=== PATIENT | male | born 1945 | race Caucasian/White ===

== ENCOUNTER 2016-10-23 11:08 | Inpatient (IN) | payer MEDICARE, BC ==
[~2016-10-23] VITALS: Ht 180.3 cm; Wt 118.0 kg
[2016-10-23] VITALS (11 sets, daily range): BP systolic 113–130; BP diastolic 58–82; PULSE 60–80; RESP 16–24; TEMP 97.4–98.6; O2SAT 95–96
[~2016-10-23 11:08] MED LIST: CLOP75 PO; COLE625 PO; COQ1200C3 PO; DILT180C56 PO; ENAL5TAB98 PO; ESZO3 PO; FURO20TA PO; HYALCAP PO; META800T81 PO; NITR0.4S SL; RAPA8CAP PO; TAB-TAB PO; ULTR50TA PO; [UNRECOGNIZED DRUG - CODE] PO
[2016-10-23] MEDS ORDERED: IOHEXOL 350 MG/ML 10 ML VIAL (for RAD DIAG) IVCONTRAST ONE (11:09)
--- NOTE | 2016-10-23 11:23 | PD ---
Physical Exam Date Seen by Provider: Oct 23, 2016 Time Seen by Provider: 11:20 Narrative 71 Y/O male with 4 day Hx. chest pressure and Pain across upper back. Pt. states similar symptoms to when he needed 4 stents in 2004. Patient takes ASA Daily. EKG and Chest Pain Labs ordered per Protocol. Patient awaiting Bed Placement. Data Data Last Documented VS Vital Signs Date Time Temp Pulse Resp B/P (MAP) Pulse Ox O2 Delivery O2 Flow Rate FiO2 10/23/16 11:10 98.6 80 24 130/82 (98) 96 Room Air [facility] Medical Record Reviewed: Yes Supervised Visit with DUSTY: Yes Condition: Stable Diego Patterson Oct 23, 2016 11:23
--- NOTE | 2016-10-23 11:48 | PD ---
HPI Chief Complaint: Chest Pain Time Seen by Provider: 11:48 Travel History International Travel<30 days: No Contact w/Intl Traveler<30days: No Traveled to known affect area: No History of Present Illness HPI 71-year-old male presents to the emergency department for evaluation of a chest pressure and back pain. Patient has history of CAD with previous stent placement, hypertension, followed by Dr. Fairchild. Patient states over the last 3-4 weeks he has had this left-sided chest pressure. It is almost constant. He has developed a pain between his shoulder blades on his upper back. He has no shortness of breath. He was awoken abruptly at 3 AM this morning with the symptoms once again. He was diaphoretic this time. He states the sensation was similar to when he had to have his stents placed before. He contacted his principal architectural firm to advised that he come to the emergency department. Patient has sublingual nitroglycerin at home, however he has not taken it during any episode of the last 3-4 weeks. Denies any recent illnesses, fever, chills. No nausea or vomiting. Patient has no other symptoms to report. PFSH Past Medical History Heart Rhythm Problems: Yes (RBBB) Cardiac Catheterization: Yes Cardiovascular Problems: Yes (4 STENTS TO HEART) High Cholesterol: Yes Congestive Heart Failure: No Diabetes: No Diminished Hearing: No Hypertension: Yes Myocardial Infarction: Yes (2004) Past Surgical History Coronary Artery Bypass Graft: No Coronary Stent: Yes (X 4 2004) Social History Alcohol Use: Yes (2 DRINKS DAILY) Tobacco Use: No (QUIT 1989) Substance Use: No Allergies-Medications (Allergen,Severity, Reaction): Coded Allergies: aspirin (Verified Allergy, Severe, Flushing, 10/23/16) acetaminophen (Unverified Allergy, Mild, 10/23/16) caffeine (Unverified Allergy, Mild, 10/23/16) povidone-iodine (Unverified Allergy, Mild, 10/23/16) Reported Meds & Prescriptions Reported Meds & Active Scripts Active Reported B12 (Cyanocobalamin) 1,000 Mcg Tab 1 Tab PO DAILY Aspirin 81 Mg Chew 81 Mg CHEW DAILY Coq-10 (Coenzyme Q10 (Ubidecarenone)) 400 Mg Cap 200 Mg PO DAILY Multiple Vitamin 1 Tab 1 Tab PO DAILY Hydrocodone-Acetaminophen 7.5-325 mg Tab 1 Tab PO Q4H PRN Gabapentin 300 Mg Cap 300 Mg PO BID Furosemide 20 Mg Tab 20-40 Mg PO DIRECTED Metaxalone 800 Mg Tab 800 Mg PO DAILY PRN Temazepam 15 Mg Cap 15 Mg PO HS PRN Welchol (Colesevelam HCl) 625 Mg Tab 3,750 Mg PO DAILY Diltiazem ER 24 HR 180 Mg Mihir 180 Mg PO DAILY Enalapril (Enalapril Maleate) 5 Mg Tab 5 Mg PO DAILY Finasteride 5 Mg Tab 5 Mg PO DIRECTED Do not crush. Review of Systems Except as stated in HPI: all other systems reviewed are Neg Physical Exam Narrative GENERAL: Well-nourished male patient, ambulatory and in no acute distress. Patient is resting comfortably on the stretcher. SKIN: Focused skin assessment warm/dry. HEAD: Atraumatic. Normocephalic. EYES: Pupils equal and round. No scleral icterus. No injection or drainage. ENT: No nasal bleeding or discharge. Mucous membranes pink and moist. NECK: Trachea midline. No JVD. CARDIOVASCULAR: Regular rate and rhythm. No murmur appreciated. RESPIRATORY: No accessory muscle use. Clear to auscultation. Breath sounds equal bilaterally. GASTROINTESTINAL: Abdomen soft, non-tender, nondistended. Hepatic and splenic margins not palpable. MUSCULOSKELETAL: No obvious deformities. No clubbing. No cyanosis. No edema. NEUROLOGICAL: Awake and alert. No obvious cranial nerve deficits. Motor grossly within normal limits. Normal speech. PSYCHIATRIC: Appropriate mood and affect; insight and judgment normal. Data Data Last Documented VS Vital Signs Date Time Temp Pulse Resp B/P (MAP) Pulse Ox O2 Delivery O2 Flow Rate FiO2 10/23/16 15:07 62 16 113/58 (76) 96 Room Air 10/23/16 11:10 98.6 Orders Orders Electrocardiogram (10/23/16 11:18) Complete Blood Count With Diff (10/23/16 11:18) Basic Metabolic Panel (Bmp) (10/23/16 11:18) Ckmb (Isoenzyme) Profile (10/23/16 11:18) Troponin I (10/23/16 11:18) Chest, Single Ap (10/23/16 11:18) Iv Access Insert/Monitor (10/23/16 11:18) Ecg Monitoring (10/23/16 11:18) Oxygen Administration (10/23/16 11:18) Oximetry (10/23/16 11:18) D-Dimer (10/23/16 12:08) Lipase (10/23/16 11:30) Aspirin Chew (Aspirin Chew) (10/23/16 12:30) Ct Pulmonary Angiogram (10/23/16 ) Iohexol 350 Inj (Omnipaque 350 Inj) (10/23/16 11:09) Labs Laboratory Tests Test 10/23/16 11:30 10/23/16 12:20 White Blood Count 6.4 TH/MM3 Red Blood Count 5.37 MIL/MM3 Hemoglobin 15.5 GM/DL Hematocrit 47.2 % Mean Corpuscular Volume 88.0 FL Mean Corpuscular Hemoglobin 28.8 PG Mean Corpuscular Hemoglobin Concent 32.7 % Red Cell Distribution Width 13.6 % Platelet Count 234 TH/MM3 Mean Platelet Volume 7.4 FL Neutrophils (%) (Auto) 60.8 % Lymphocytes (%) (Auto) 28.8 % Monocytes (%) (Auto) 9.1 % Eosinophils (%) (Auto) 1.0 % Basophils (%) (Auto) 0.3 % Neutrophils # (Auto) 3.9 TH/MM3 Lymphocytes # (Auto) 1.8 TH/MM3 Monocytes # (Auto) 0.6 TH/MM3 Eosinophils # (Auto) 0.1 TH/MM3 Basophils # (Auto) 0.0 TH/MM3 CBC Comment DIFF FINAL Differential Comment Blood Urea Nitrogen 19 MG/DL Creatinine 0.95 MG/DL Random Glucose 83 MG/DL Calcium Level 8.7 MG/DL Sodium Level 142 MEQ/L Potassium Level 4.1 MEQ/L Chloride Level 107 MEQ/L Carbon Dioxide Level 28.0 MEQ/L Anion Gap 7 MEQ/L Estimat Glomerular Filtration Rate 78 ML/MIN Total Creatine Kinase 83 U/L Troponin I LESS THAN 0.02 NG/ML Lipase 195 U/L D-Dimer Quantitative (PE/DVT) 0.53 MG/L FEU [facility] Medical Decision Making Medical Screen Exam Complete: Yes Emergency Medical Condition: Yes Medical Record Reviewed: Yes Differential Diagnosis ACS versus angina versus esophageal spasm versus indigestion versus pleuritic pain versus chest wall pain versus musculoskeletal pain versus less likely dissection. Narrative Course 71-year-old male presents to to the emergency department for evaluation. Patient appears without distress. His vital signs are stable. He is currently having chest pressure. I discussed the patient with my attending physician. D- dimer will be added to lab work as well as lipase. Laboratory Tests Test 10/23/16 11:30 10/23/16 12:20 White Blood Count 6.4 TH/MM3 Red Blood Count 5.37 MIL/MM3 Hemoglobin 15.5 GM/DL Hematocrit 47.2 % Mean Corpuscular Volume 88.0 FL Mean Corpuscular Hemoglobin 28.8 PG Mean Corpuscular Hemoglobin Concent 32.7 % Red Cell Distribution Width 13.6 % Platelet Count 234 TH/MM3 Mean Platelet Volume 7.4 FL Neutrophils (%) (Auto) 60.8 % Lymphocytes (%) (Auto) 28.8 % Monocytes (%) (Auto) 9.1 % Eosinophils (%) (Auto) 1.0 % Basophils (%) (Auto) 0.3 % Neutrophils # (Auto) 3.9 TH/MM3 Lymphocytes # (Auto) 1.8 TH/MM3 Monocytes # (Auto) 0.6 TH/MM3 Eosinophils # (Auto) 0.1 TH/MM3 Basophils # (Auto) 0.0 TH/MM3 CBC Comment DIFF FINAL Differential Comment Blood Urea Nitrogen 19 MG/DL Creatinine 0.95 MG/DL Random Glucose 83 MG/DL Calcium Level 8.7 MG/DL Sodium Level 142 MEQ/L Potassium Level 4.1 MEQ/L Chloride Level 107 MEQ/L Carbon Dioxide Level 28.0 MEQ/L Anion Gap 7 MEQ/L Estimat Glomerular Filtration Rate 78 ML/MIN Total Creatine Kinase 83 U/L Troponin I LESS THAN 0.02 NG/ML Lipase 195 U/L D-Dimer Quantitative (PE/DVT) 0.53 MG/L FEU CT pulmonary angiogram shows no pleural effusion. No PE. It does show coronary calcifications. I discussed the patient with Dr. Devorah Calzada's PA. She requests admission to medicine for observation to [facility]. [facility]. Diagnosis Primary Impression: Chest discomfort Admitting Information Admitting Physician Requests: Observation Condition: Stable BrittanyAgataSujeyanderson VALLES Oct 23, 2016 11:48
[2016-10-23 12:14] LABS: AUTOMATED NEUTROPHIL # 3.9 TH/MM3 (1.8-7.7); BASOPHIL % 0.3 % (0.0-2.0); EOSINOPHIL # 0.1 TH/MM3 (0-0.4); HEMATOCRIT 47.2 % (39.0-51.0); HEMO FLAGS DIFF FINAL; LYMPH % 28.8 % (9.0-44.0); LYMPHOCYTE # 1.8 TH/MM3 (1.0-4.8); MEAN CORPUSCULAR HEMOGLOBIN 28.8 PG (27.0-34.0); MEAN CORPUSCULAR HGB CONC 32.7 % (32.0-36.0); MONO % 9.1 % (0.0-8.0); NEUT % 60.8 % (16.0-70.0); PLATELET COUNT 234 TH/MM3 (150-450); RED BLOOD COUNT 5.37 MIL/MM3 (4.50-5.90); RED CELL DISTRIBUTION WIDTH 13.6 % (11.6-17.2); WHITE BLOOD COUNT 6.4 TH/MM3 (4.0-11.0)
[2016-10-23] MEDS ORDERED: ASPIRIN 81 MG CHEW TAB CHEW ONE (12:30)
[2016-10-23] MEDS ORDERED: GABA300C5 PO ×2 (12:33→21:54)
[2016-10-23] MEDS ORDERED: META1TAB19 PO (12:33)
[2016-10-23] MEDS ORDERED: HYDR-3580 PO ×2 (12:33→21:54)
[2016-10-23] MEDS ORDERED: TEMA15CA PO (12:33)
[2016-10-23] MEDS ORDERED: DILT0.05 PO (12:33)
[2016-10-23] MEDS ORDERED: CYAN1TAB24 PO (12:33)
[2016-10-23] MEDS ORDERED: MULTTAB67 PO (12:33)
[2016-10-23] MEDS ORDERED: FINA5TAB2 PO ×2 (12:33→21:44)
[2016-10-23] MEDS ORDERED: ASPI81CH CHEW (12:33)
[2016-10-23] MEDS ORDERED: COEN400C PO (12:33)
[2016-10-23] MEDS ORDERED: ENAL5TAB PO (12:33)
[2016-10-23] MEDS ORDERED: FURO20TA PO (12:33)
[2016-10-23] MEDS ORDERED: WELC625T2 PO (12:33)
[2016-10-23 12:40] LABS: ANION GAP 7 MEQ/L (5-15); BLOOD UREA NITROGEN 19 MG/DL (7-18); CHLORIDE 107 MEQ/L (98-107); GLOMERULAR FILTRATION RATE 78 ML/MIN (>89); POTASSIUM 4.1 MEQ/L (3.5-5.1); SODIUM (NA) 142 MEQ/L (136-145)
[2016-10-23 12:58] LABS: CREATINE KINASE 83 U/L (39-308)
--- NOTE | 2016-10-23 13:42 | RADRPT ---
EXAM DATE/TIME: 10/23/2016 12:45 [facility] COMPARISON: CHEST SINGLE AP, April 29, 2014, 20:52. INDICATIONS : Chest pain. MEDICAL HISTORY : Myocardial infarction. Hypertension SURGICAL HISTORY : Coronary artery stent. ENCOUNTER: Initial ACUITY: 3 weeks PAIN SCORE: 7/10 LOCATION: Bilateral chest FINDINGS: A single view of the chest demonstrates the lungs to be symmetrically aerated without evidence of mas s, infiltrate or effusion. The cardiomediastinal contours are unremarkable. Osseous structures are intact. CONCLUSION: No acute cardiopulmonary process. Reinier Bunch MD on October 23, 2016 at 13:40 Board Certified Radiologist. This report was verified electronically.
--- NOTE | 2016-10-23 15:09 | RADRPT ---
EXAM DATE/TIME: 10/23/2016 14:24 [facility] COMPARISON: No previous studies available for comparison. INDICATIONS : Chest tightness for 1 month, worsening today IV CONTRAST: 75 cc Omnipaque 350 (iohexol) IV RADIATION DOSE: 23.03 CTDIvol (mGy) MEDICAL HISTORY : Hypertension. Cardiovascular disease SURGICAL HISTORY : Coronary artery stent. ENCOUNTER: Initial ACUITY: 1 day PAIN SCALE: 3/10 LOCATION: chest TECHNIQUE: Volumetric scanning of the chest was performed using a pulmonary embolism protocol MIP images were re constructed. Using automated exposure control and adjustment of the mA and/or kV according to patien t size, radiation dose was kept as low as reasonably achievable to obtain optimal diagnostic quality images. DICOM format image data is available electronically for review and comparison. Follow-up recommendations for detected pulmonary nodules are based at a minimum on nodule size and pa tient risk factors according to Fleischner Society Guidelines. FINDINGS: PULMONARY ARTERIES: No filling defects are seen in the pulmonary arteries through the segmental level. Tiny defect within right lower lobe branches on image #68 appears to be artifact. LUNGS: There is no consolidation or pneumothorax . No concerning pulmonary nodule is visualized. PLEURAE: There is no pleural thickening or pleural effusion. MEDIASTINUM: There is good visualization of the great vessels of the middle mediastinum. No evidence of mediastin al or hilar adenopathy/mass. Coronary artery calcifications. MUSCULOSKELETAL: Within normal limits for patient age. MISCELLANEOUS: The visualized upper abdominal organs demonstrate no acute abnormality. CONCLUSION: 1. No evidence for pulmonary embolism. 2. No infiltrate or pleural effusion. 3. Coronary artery calcifications. Jus Navarro MD on October 23, 2016 at 15:04 Board Certified Radiologist. This report was verified electronically.
--- NOTE | 2016-10-23 17:23 | HHI.HP ---
HPI Service [facility] Hospitalists Primary Care Physician Lea Whitley DO Admission Diagnosis CHEST PRESSURE Diagnoses: Chief Complaint: Chest pain Mid upper back pain Diaphoresis Travel History International Travel<30 Days: No Contact w/Intl Traveler <30 Da: No Traveled to Known Affected Are: No History of Present Illness Written by MAURO Granados acting as scribe for Dr. Rasmussen on 10/23/16 at 16:54. This is a 71-year-old male with past medical history significant for coronary artery disease status post previous MT with implantation of four cardiac stents in 2004, hypertension, dyslipidemia and degenerative disc disease lumbar spine status post previous lumbar fusion who presents to [facility] ED with complaints of ongoing chest pain. Patient states that symptoms began one month ago and at that time he was experiencing intermittent left-sided chest pressure. For the past week, the chest pain has been constant. He denies any aggravating or alleviating factors. He endorses cheat pain at rest. About 5 days ago, he began to experience pain in between the shoulder blades in the mid upper back which is the same type of pain he experienced when he had his previous heart attack in 2004. Patient states this morning at 3am he was awoken with chest pain as well as mid upper back pain with associated diaphoresis. He denies any associated nausea or vomiting. He denies any dizziness or lightheadedness. Denies any palpitations. Patient denies any recent illness or travel. He does endorse increased fatigue more recently and daytime somnolence. He also reports bilateral lower extremity edema. Patient admits to sleeping with 2 pillows at night. He denies any abdominal pain, diarrhea, constipation, hematochezia, dysuria or hematuria. Patient is followed by caustics loader Dr. Fairchild. He was on Plavix up until last year. He denies any change in his recent medication. He also states he is very compliant with his meds. Called his caustics loader and was instructed to come here for further evaluation In the ED, patient's initial troponin is less than 0.02. Chest x-ray shows no acute cardiopulmonary process. CTA was also obtained and shows no evidence for pulmonary embolus, no infiltrate or pleural effusion and coronary artery calcifications. Cardiology has been consulted while patient was in the ED and requested admission [facility] for observation. EKG shows no acute changes Review of Systems Except as stated in HPI: all other systems reviewed are Neg Past Family Social History Past Medical History Coronary artery disease status post previous MT with cardiac stent implantations 2005 Hypertension BPH Hyperlipidemia intolerant to statins secondary to muscle pain and weakness TORI Neuropathy Chronic low back pain Past Surgical History Cardiac stent implants x 4 Lumbar fusion Left knee arthroscopy Shoulder arthroscopy Bilateral carpal tunnel release Heel spur excision Reported Medications B12 (Cyanocobalamin) 1,000 Mcg Tab 1 Tab PO DAILY Aspirin 81 Mg Chew 81 Mg CHEW DAILY Coq-10 (Coenzyme Q10 (Ubidecarenone)) 400 Mg Cap 200 Mg PO DAILY Multiple Vitamin 1 Tab 1 Tab PO DAILY Hydrocodone-Acetaminophen 7.5-325 mg Tab 1 Tab PO Q4H PRN Gabapentin 300 Mg Cap 300 Mg PO BID Furosemide 20 Mg Tab 20-40 Mg PO DIRECTED Metaxalone 800 Mg Tab 800 Mg PO DAILY PRN Temazepam 15 Mg Cap 15 Mg PO HS PRN Welchol (Colesevelam HCl) 625 Mg Tab 3,750 Mg PO DAILY Diltiazem ER 24 HR 180 Mg Mihir 180 Mg PO DAILY Enalapril (Enalapril Maleate) 5 Mg Tab 5 Mg PO DAILY Finasteride 5 Mg Tab 5 Mg PO DIRECTED Do not crush. Allergies: Coded Allergies: aspirin (Verified Allergy, Severe, Flushing, 10/23/16) acetaminophen (Unverified Allergy, Mild, 10/23/16) caffeine (Unverified Allergy, Mild, 10/23/16) povidone-iodine (Unverified Allergy, Mild, 10/23/16) Family History Mother, coronary artery disease, previous MT Social History Patient has a history of previous tobacco use but quit in 1988. Prior to quitting, patient states he smoked 3 packs per day for 30yrs. He endorses EtOH consumption several drinks per day. He denies any illicit drug use. Patient is lives with his . 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 Physical Exam Vital Signs Vital Signs Date Time Temp Pulse Resp B/P (MAP) Pulse Ox O2 Delivery O2 Flow Rate FiO2 10/23/16 15:07 62 16 113/58 (76) 96 Room Air 10/23/16 12:34 64 20 116/71 (86) 96 Room Air 10/23/16 12:25 20 96 Room Air 10/23/16 11:10 98.6 80 24 130/82 (98) 96 Room Air Physical Exam GENERAL: This is a well-nourished, well-developed obese patient, in no apparent distress. Awake and alert. at the bedside. SKIN: No rashes, ecchymoses or lesions. Cool and dry. HEAD: Atraumatic. Normocephalic. No temporal or scalp tenderness. EYES: Pupils equal round and reactive. Extraocular motions intact. No scleral icterus. No injection or drainage. ENT: Nose without bleeding or purulent drainage. Throat without erythema, tonsillar hypertrophy or exudate. Uvula midline. Airway patent. NECK: Trachea midline. No lymphadenopathy. Supple, nontender, no meningeal signs. CARDIOVASCULAR: Regular rate and rhythm without murmurs, gallops, or rubs. RESPIRATORY: Clear to auscultation. Breath sounds equal bilaterally. No wheezes , rales, or rhonchi. GASTROINTESTINAL: Abdomen soft, non-tender, nondistended. No hepato-splenomegaly , or palpable masses. No guarding. MUSCULOSKELETAL: Extremities without clubbing, cyanosis, or edema. No joint tenderness, effusion, or edema noted. No calf tenderness. NEUROLOGICAL: Awake and alert. Able to move all extremities. No focal neurologic findings appreciated. Normal speech. Laboratory Laboratory Tests Test 10/23/16 11:30 10/23/16 12:20 White Blood Count 6.4 Red Blood Count 5.37 Hemoglobin 15.5 Hematocrit 47.2 Mean Corpuscular Volume 88.0 Mean Corpuscular Hemoglobin 28.8 Mean Corpuscular Hemoglobin Concent 32.7 Red Cell Distribution Width 13.6 Platelet Count 234 Mean Platelet Volume 7.4 Neutrophils (%) (Auto) 60.8 Lymphocytes (%) (Auto) 28.8 Monocytes (%) (Auto) 9.1 Eosinophils (%) (Auto) 1.0 Basophils (%) (Auto) 0.3 Neutrophils # (Auto) 3.9 Lymphocytes # (Auto) 1.8 Monocytes # (Auto) 0.6 Eosinophils # (Auto) 0.1 Basophils # (Auto) 0.0 CBC Comment DIFF FINAL Differential Comment Blood Urea Nitrogen 19 Creatinine 0.95 Random Glucose 83 Calcium Level 8.7 Sodium Level 142 Potassium Level 4.1 Chloride Level 107 Carbon Dioxide Level 28.0 Anion Gap 7 Estimat Glomerular Filtration Rate 78 Total Creatine Kinase 83 Troponin I LESS THAN 0.02 Lipase 195 D-Dimer Quantitative (PE/DVT) 0.53 Result Diagram: 10/23/16 1130 10/23/16 1130 Caprini VTE Risk Assessment Caprini VTE Risk Assessment: Mod/High Risk (score >= 2) Caprini Risk Assessment Model Point Value = 1 Point Value = 2 Point Value = 3 Point Value = 5 Age 41-60 Minor surgery BMI > 25 kg/m2 Swollen legs Varicose veins or History of unexplained or recurrent spontaneous Oral contraceptives or hormone replacement Sepsis (< 1 month) Serious lung disease, including pneumonia (< 1 month) Abnormal pulmonary function Acute myocardial infarction Congestive heart failure (< 1 month) History of inflammatory bowel disease Medical patient at bed rest Age 61-74 Arthroscopic surgery Major open surgery (> 45 min) Laparoscopic surgery (> 45 min) Malignancy Confined to bed (> 72 hours) Immobilizing plaster cast Central venous access Age >= 75 History of VTE Family history of VTE Factor V Leiden Prothrombin [id number] Lupus anticoagulant Anticardiolipin antibodies Elevated serum homocysteine Heparin-induced thrombocytopenia Other congenital or acquired thrombophilia Stroke (< 1 month) Elective arthroplasty Hip, pelvis, or leg fracture Acute spinal cord injury (< 1 month) Prophylaxis Regimen Total Risk Factor Score Risk Level Prophylaxis Regimen 0-1 Low Early ambulation 2 Moderate Order ONE of the following: *Sequential Compression Device (SCD) *Heparin 5000 units SQ BID 3-4 Higher Order ONE of the following medications: *Heparin 5000 units SQ TID *Enoxaparin/Lovenox 40 mg SQ daily (WT < 150 kg, CrCl > 30 mL/min) *Enoxaparin/Lovenox 30 mg SQ daily (WT < 150 kg, CrCl > 10-29 mL/min) *Enoxaparin/Lovenox 30 mg SQ BID (WT < 150 kg, CrCl > 30 mL/min) AND/OR *Sequential Compression Device (SCD) 5 or more Highest Order ONE of the following medications: *Heparin 5000 units SQ TID (Preferred with Epidurals) *Enoxaparin/Lovenox 40 mg SQ daily (WT < 150 kg, CrCl > 30 mL/min) *Enoxaparin/Lovenox 30 mg SQ daily (WT < 150 kg, CrCl > 10-29 mL/min) *Enoxaparin/Lovenox 30 mg SQ BID (WT < 150 kg, CrCl > 30 mL/min) AND *Sequential Compression Device (SCD) Assessment and Plan Assessment and Plan 71-year-old male with past medical history significant for coronary artery disease status post previous MT with implantation of four cardiac stents in 2004 , hypertension, dyslipidemia and degenerative disc disease lumbar spine status post previous lumbar fusion who presents to [facility] ED with complaints of ongoing chest pain. ACS,unstable angina in patient with h/o CAD s/p previous MT and cardiac stent implants Patients caustics loader Dr. Fairchild consulted while patient in the ED CTA personally reviewed and shows no evidence for pulmonary embolus, infiltrate or pleural effusion. Chest x-ray obtained in the ED personally interpreted shows no acute cardiopulmonary process. EKG personally reviewed showing sinus rhythm with incomplete block. Last cardiac catheterization in our system dated 05/25/08 shows normal LV function widely patent stents 4 and 30-40% disease of the LAD Continuous cardiac monitoring Initial troponin negative. Follow up on serial cardiac enzymes. Supplemental oxygen Aspirin 81 mg daily give x1v Lovenox. will defer to cardiology whether to proceed with cath or myocardial perfusion study Hypertension, controlled Continue patient on his home dose of antihypertensive medications including enalapril 5 mg daily and diltiazem 180 mg daily Dyslipidemia Intolerant to statins due to muscle pain/weakness Continue patient's home dose of Welchol BPH Continue patient's home dose of finasteride Chronic low back pain status post previous fusion Neuropathy Continue patient's home dose of gabapentin Continue patient's home muscle relaxant as needed TORI Will discuss with the patient bring in his own home CPAP machine if he has one DVT prophylaxis- -Lovenox x 1 for # 1 The exam, history, and the medical decision-making described in the above note were completed with the assistance of the mid-level provider. I reviewed and agree with the findings presented. I attest that I had a [id number] encounter with the patient on the same day, and personally performed and documented my assessment and findings in the medical record. Ofe Sanchez Oct 23, 2016 17:23 Michael Rasmussen MD Oct 23, 2016 17:42
[2016-10-23 18:03] LABS: CREATINE KINASE 70 U/L (39-308)
[2016-10-23] MEDS ORDERED: ENOXAPARIN SODIUM 120 MG/0.8 ML SYRINGE SQ ONE (18:30)
[2016-10-23] MEDS ORDERED: DILT180C56 PO (21:54)
[2016-10-23] MEDS ORDERED: ENAL5TAB98 PO (21:54)
[2016-10-23] MEDS ORDERED: REST15CA PO (21:54)
[2016-10-23] MEDS: METAXALONE 800 MG TAB PO SCH (23:00)
[2016-10-23] MEDS ORDERED: GABAPENTIN 300 MG CAP PO SCH (23:00)
[2016-10-23] MEDS: TEMAZEPAM 15 MG CAP PO PRN (23:16)
[2016-10-24] VITALS (23 sets, daily range): BP systolic 96–139; BP diastolic 58–75; PULSE 54–78; RESP 16–20; TEMP 97.7–98.6; O2SAT 94–97
--- NOTE | 2016-10-24 08:15 | HHI.PR ---
Subjective Remarks overnight on and off chest discomfort- fleeting with no associated nausea or vomiting or diaphoresis Objective Vitals Vital Signs Date Time Temp Pulse Resp B/P (MAP) Pulse Ox O2 Delivery O2 Flow Rate FiO2 10/24/16 06:15 57 10/24/16 05:04 55 10/24/16 04:40 54 10/24/16 03:21 56 10/24/16 03:15 97.8 60 16 139/70 (93) 97 10/24/16 02:00 55 10/24/16 01:00 61 10/24/16 00:00 59 10/23/16 23:15 97.4 60 18 122/69 (86) 96 10/23/16 23:00 63 10/23/16 22:00 64 10/23/16 21:00 62 10/23/16 20:00 62 10/23/16 19:00 67 10/23/16 19:00 98.6 66 16 115/63 (80) 95 10/23/16 17:41 10/23/16 17:34 65 20 114/64 (81) 96 Room Air 10/23/16 15:07 62 16 113/58 (76) 96 Room Air 10/23/16 12:34 64 20 116/71 (86) 96 Room Air 10/23/16 12:25 20 96 Room Air 10/23/16 11:10 98.6 80 24 130/82 (98) 96 Room Air I/O 10/23/16 10/23/16 10/23/16 10/24/16 10/24/16 10/24/16 06:59 14:59 22:59 06:59 14:59 22:59 Intake Total 480 ml Balance 480 ml Intake Oral 480 ml # Voids 3 Result Diagram: 10/23/16 1130 10/23/16 1130 Objective Remarks awake and alert, NAD anicteric lungs clear regular rhythm abdomen soft, nontender extremities no edema neuro exam- unremarkable A/P Assessment and Plan 71-year-old male with past medical history significant for coronary artery disease status post previous OH with implantation of four cardiac stents in 2004 , hypertension, dyslipidemia and degenerative disc disease lumbar spine status post previous lumbar fusion who presents to [facility] ED with complaints of ongoing chest pain. 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 troponins negative CTA - no evidence for pulmonary embolus, infiltrate or pleural effusion. EKG -with incomplete block. Last cardiac catheterization in our system dated 05/25/08 shows normal LV function widely patent stents 4 and 30-40% disease of the LAD Supplemental oxygen Aspirin 81 mg daily. CCB, [place] give x1v Lovenox. will defer to cardiology whether to proceed with cath or myocardial perfusion study Hypertension, controlled Continue patient on his home dose of antihypertensive medications including enalapril 5 mg daily and diltiazem 180 mg daily Dyslipidemia Intolerant to statins due to muscle pain/weakness Continue patient's home dose of Welchol BPH Continue patient's home dose of finasteride Chronic low back pain status post previous fusion Neuropathy Continue patient's home dose of gabapentin Continue patient's home muscle relaxant as needed TORI Will discuss with the patient bring in his own home CPAP machine if he has one DVT prophylaxis- -Lovenox x 1 for # 1 HOld for possible cath. Michael Rasmussen MD Oct 24, 2016 08:15
[2016-10-24] MEDS: METAXALONE 800 MG TAB PO SCH ×2 (09:00→21:00)
[2016-10-24] MEDS ORDERED: COLESEVELAM HCL 625 MG TAB PO SCH ×2 (09:00→10:00)
[2016-10-24] MEDS: ENALAPRIL MALEATE 5 MG TAB PO SCH (09:23)
[2016-10-24] MEDS: FINASTERIDE 5 MG TAB PO SCH (09:24)
[2016-10-24] MEDS: ASPIRIN 81 MG CHEW TAB CHEW SCH (09:25)
[2016-10-24] MEDS: DILTIAZEM-CD 180 MG CAP ER PO SCH (09:25)
--- NOTE | 2016-10-24 13:46 | EKG ---
Date Performed: 10/23/2016 Time Performed: 11:16:50 PTAGE: 71 years EKG: Sinus rhythm WITH FIRST DEGREE AV BLOCK INDETERMINATE AXIS RIGHT BUNDLE BRANCH BLOCK ABNORMAL ECG Compared to afia or tracing no significant change PREVIOUS TRACING : 05/24/2008 22.37 DOCTOR: Simona Adhikari Interpretating Date/Time 10/24/2016 13:42:04
--- NOTE | 2016-10-24 13:46 | EKG ---
Date Performed: 10/23/2016 Time Performed: 17:00:19 PTAGE: 71 years EKG: Sinus rhythm INDETERMINATE AXIS RIGHT BUNDLE BRANCH BLOCK ABNORMAL ECG Compared to prior tracing no significant c amira PREVIOUS TRACING : 10/23/2016 11.16 DOCTOR: Simona Adhikari Interpretating Date/Time 10/24/2016 13:42:12
[2016-10-24] MEDS ORDERED: ACETAMINOPHEN 325 MG TAB PO PRN (14:00)
[2016-10-24] MEDS: METOPROLOL TARTRATE 25 MG TAB PO SCH ×2 (14:09→21:38)
[2016-10-24] MEDS: NITROGLYCERIN 2% OINT 1 GM PACKET TOPICAL SCH ×2 (14:09→20:00)
[2016-10-24] MEDS: COLESEVELAM HCL 625 MG TAB PO SCH (14:10)
[2016-10-24] MEDS ORDERED: HEPARIN 25,000 UNITS-D5W 250 ML - PREMIX IV SCH (14:30)
--- NOTE | 2016-10-24 14:30 | PD.CONS ---
HPI Service Cardiology Physicians Consult Requested By REENA Hobson Reason for Consult CP, history of CAD Primary Care Physician Lea Whitley DO History of Present Illness The patient is a 71 year old male known to our practice with a cardiac history of ASHD, HTN, HLD, chronic diastolic CHF, remote smoking history, obesity and mild MR. The patient presented to the hospital for sudden onset of midsternal chest pressure that radiated to between his shoulder blades associated with SOB. The symptoms started when he awoke from sleep. He admits to a one month history of midsternal CP that would last for a little while and go away. Symptoms have been increasing in frequency and duration. He also admits to progressively worsening fatigue with ADLs. Today, on evaluation, he is having chest pressure radiating between his shoulder blades and appears slightly diaphoretic. He is not currently on nitroglycerin or heparin. He is not taking BB. He received ASA this morning. Troponin negative X 2. EKG negative for ischemic changes. (Elsi George) Review of Systems Consitutional: COMPLAINS OF: Fatigue, DENIES: Fever, Chills, Weight gain, Weight loss Eyes: DENIES: Amaurosis Fugax, Change in vision HEENT: DENIES: Lightheadedness, Change in hearing Respiratory: COMPLAINS OF: Shortness of breath, DENIES: See HPI, Cough, Snoring , Wheezing, Sputum production Cardiovascular: COMPLAINS OF: Chest pain, DENIES: See HPI, Palpitations, Syncope, Tachycardia Gastrointestinal: DENIES: Nausea, Vomiting, Change in bowel habits, Reflux, Bloody stools, Melena Genitourinary: DENIES: Urinary incontinence, Difficulty voiding Integumentary: DENIES: Rash Neurologic: DENIES: Tingling or numbness, Memory problems, Poor Balance, Stroke symptoms Musculoskeletal: DENIES: Joint pain, Muscle pain, Limited range of motion, Back pain Psychiatric: DENIES: Anxiety, Depression, Sleep disturbances Hematologic: DENIES: Bruising tendencies, Bleeding tendencies Endocrine: DENIES: Weight gain, Weight loss, Thyroid disease (Elsi George ) Past Family Social History Allergies: Coded Allergies: acetaminophen (Unverified Allergy, Mild, 10/23/16) caffeine (Unverified Allergy, Mild, 10/23/16) povidone-iodine (Unverified Allergy, Mild, 10/23/16) aspirin (Verified Adverse Reaction, Mild, stomach upset, 10/23/16) calcium carbonate (Verified Adverse Reaction, Mild, stomach upset, 10/23/16 ) Past Medical History ASHD negative PET 08/2014, heart cath 2006, heart cath 2004 4 stents RCA Chronic diastolic CHF HTN HLD- allergic to statins Obesity BPH Sleep apnea Mild MR History of smoking Past Surgical History cardiac cath 2004 and 2006 Back surgery 2013 oral surgery 2006 carpal tunnel 1998 Reported Medications Reported Meds & Active Scripts Active Reported Hydrocodone-Acetaminophen 7.5-325 mg Tab 1 Tab PO Q4H PRN Gabapentin 300 Mg Cap 300 Mg PO BID Restoril (Temazepam) 15 Mg Cap 15 Mg PO HS Diltiazem Cd 180 mg 180 Mg Capcr 180 Mg PO DAILY Vasotec (Enalapril Maleate) 5 Mg Tab 5 Mg PO DAILY Finasteride 5 Mg Tab 5 Mg PO 2XWEEK Do not crush. B12 (Cyanocobalamin) 1,000 Mcg Tab 1 Tab PO DAILY Aspirin 81 Mg Chew 81 Mg CHEW DAILY Coq-10 (Coenzyme Q10 (Ubidecarenone)) 400 Mg Cap 200 Mg PO DAILY Multiple Vitamin 1 Tab 1 Tab PO DAILY Hydrocodone-Acetaminophen 7.5-325 mg Tab 1 Tab PO Q4H PRN Gabapentin 300 Mg Cap 300 Mg PO BID Furosemide 20 Mg Tab 20-40 Mg PO DIRECTED Metaxalone 800 Mg Tab 800 Mg PO DAILY PRN Temazepam 15 Mg Cap 15 Mg PO HS PRN Welchol (Colesevelam HCl) 625 Mg Tab 3,750 Mg PO DAILY Diltiazem ER 24 HR 180 Mg Mihir 180 Mg PO DAILY Enalapril (Enalapril Maleate) 5 Mg Tab 5 Mg PO DAILY Finasteride 5 Mg Tab 5 Mg PO DIRECTED Do not crush. Active Ordered Medications Current Medications Medications (Trade) Dose Ordered Sig/Roxana Route Start Time Stop Time Status Last Admin (Aspirin Chew) 81 mg DAILY CHEW 10/24/16 09:00 10/24/16 09:25 (Cardizem Cd) 180 mg DAILY PO 10/24/16 09:00 10/24/16 09:25 (Vasotec) 5 mg DAILY PO 10/24/16 09:00 10/24/16 09:23 (Proscar) 5 mg DAILY PO 10/24/16 09:00 10/24/16 09:24 (Neurontin) 300 mg BID PO 10/24/16 21:00 (Restoril) 15 mg HS PRN PO 10/23/16 21:15 10/23/16 23:16 (Skelaxin) 800 mg BID PO 10/23/16 22:15 10/23/16 23:00 Sodium Chloride 1,000 ml @ 150 mls/hr Q6H40M IV 10/24/16 11:30 (Welchol) 3,125 mg DAILY@1000 PO 10/24/16 14:00 10/24/16 14:10 (Nitroglycerin 2% Oint) 1 inch Q6H TOPICAL 10/24/16 14:00 10/24/16 14:09 (Tylenol) 650 mg Q6H PRN PO 10/24/16 14:00 (Lopressor) 25 mg BID PO 10/24/16 14:00 10/24/16 14:09 Family History non contributory Social History Lives with , history of smoking (Elsi George) Physical Exam Vital Signs Vital Signs Date Time Temp Pulse Resp B/P (MAP) Pulse Ox O2 Delivery O2 Flow Rate FiO2 10/24/16 11:00 98.5 72 20 133/60 (84) 95 10/24/16 08:00 97.7 72 16 126/75 (92) 94 10/24/16 06:15 57 10/24/16 05:04 55 10/24/16 04:40 54 10/24/16 03:21 56 10/24/16 03:15 97.8 60 16 139/70 (93) 97 10/24/16 02:00 55 10/24/16 01:00 61 10/24/16 00:00 59 10/23/16 23:15 97.4 60 18 122/69 (86) 96 10/23/16 23:00 63 10/23/16 22:00 64 10/23/16 21:00 62 10/23/16 20:00 62 10/23/16 19:00 67 10/23/16 19:00 98.6 66 16 115/63 (80) 95 10/23/16 17:41 10/23/16 17:34 65 20 114/64 (81) 96 Room Air 10/23/16 15:07 62 16 113/58 (76) 96 Room Air Physical Exam GENERAL: Obese,middle aged male, slightly diaphoretic SKIN: Warm and dry. HEAD: Atraumatic. Normocephalic. EYES: Pupils equal and round. No scleral icterus. No injection or drainage. ENT: No nasal bleeding or discharge. Mucous membranes pink and moist. NECK: Trachea midline. CARDIOVASCULAR: Regular rate and rhythm. RESPIRATORY: No accessory muscle use. Clear to auscultation. Breath sounds equal bilaterally. GASTROINTESTINAL: Abdomen soft, nondistended. epigastric tenderness to palpation MUSCULOSKELETAL: Extremities without clubbing, cyanosis, or edema. No obvious deformities. NEUROLOGICAL: Awake and alert. No obvious cranial nerve deficits. Motor grossly within normal limits. Five out of 5 muscle strength in the arms and legs. Normal speech. PSYCHIATRIC: Appropriate mood and affect; insight and judgment normal. Laboratory Laboratory Tests Test 10/23/16 16:55 Total Creatine Kinase 70 Troponin I LESS THAN 0.02 (Elsi George) Result Diagram: 10/23/16 1130 10/23/16 1130 Imaging Last 72 hours Impressions Chest X-Ray 10/23/16 1118 Signed Impressions: Service Date/Time: Sunday, October 23, 2016 12:45 - CONCLUSION: No acute cardiopulmonary process. Reinier Bunch MD (Elsi George) Assessment and Plan Assessment and Plan Unstable angina Hx ASHD HLD- allergic to statins Chronic diastolic CHF, no evidence of exacerbation HTN Obesity PLAN: Will start nitro paste, BB and heparin gtt stat. Stop heparin at 0630 in the morning tomorrow for cardiac cath planned for lunchtime Check lipids The patient was seen and evaluated by Dr Fairchild who completed face to face encounter, completed a physical exam and participated in the evaluation and management. (Elsi George) Assessment and Plan The exam, history, and the medical decision-making described in the above note were completed with the assistance of the mid-level provider. I reviewed and agree with the findings presented. Risks of cath/stent cabg etc reviewed in detail with pt and . They are agreeable to proceed. Will proceed in am (Shazia Fairchild MD) Elsi George Oct 24, 2016 14:30 Shazia Fairchild MD Oct 24, 2016 15:14
[2016-10-24] MEDS ORDERED: NITROGLYCERIN/DEXTROSE 5% 250 ML for chest pain IV PRN (15:15)
[2016-10-24] MEDS: SODIUM CHLOR 0.9% 1000 ML INJ 1,000 ML IV SCH (16:09)
[2016-10-24] MEDS ORDERED: MORPHINE SULFATE 4 MG/ML INJ IV PRN (18:30)
[2016-10-24] MEDS: GABAPENTIN 300 MG CAP PO SCH (21:38)
[2016-10-25] VITALS (23 sets, daily range): BP systolic 114–148; BP diastolic 66–76; PULSE 53–78; RESP 16–18; TEMP 97.7–98.3; O2SAT 94–97
[2016-10-25 00:23] LABS: APTT (PATIENT) 31.2 SEC (24.3-30.1)
[2016-10-25] MEDS: SODIUM CHLOR 0.9% 1000 ML INJ 1,000 ML IV SCH ×4 (00:50→20:33)
[2016-10-25] MEDS ORDERED: HEPARIN SODIUM - IV 10,000 UNITS/10 ML VIAL IV PRN ×2 (01:15)
[2016-10-25] MEDS: NITROGLYCERIN 2% OINT 1 GM PACKET TOPICAL SCH ×3 (02:00→20:00)
[2016-10-25 06:45] LABS: APTT (PATIENT) 42.7 SEC (24.3-30.1)
[2016-10-25] MEDS ORDERED: diphenhydrAMINE HCL 50 MG CAP PO ONE (07:45)
[2016-10-25] MEDS ORDERED: predniSONE 20 MG TAB PO ONE (07:45)
[2016-10-25] MEDS: METOPROLOL TARTRATE 25 MG TAB PO SCH ×2 (08:16→20:34)
[2016-10-25] MEDS: ASPIRIN 81 MG CHEW TAB CHEW SCH (08:17)
[2016-10-25] MEDS: DILTIAZEM-CD 180 MG CAP ER PO SCH (08:17)
[2016-10-25] MEDS: ENALAPRIL MALEATE 5 MG TAB PO SCH (08:17)
[2016-10-25] MEDS: GABAPENTIN 300 MG CAP PO SCH ×2 (08:18→20:34)
[2016-10-25] MEDS: METAXALONE 800 MG TAB PO SCH ×2 (08:18→20:32)
[2016-10-25] MEDS: FINASTERIDE 5 MG TAB PO SCH (08:18)
--- NOTE | 2016-10-25 09:28 | HHI.PR ---
Subjective Remarks patient states this am- after taking pills- had fleeting episode of chest pain- nitro drip increased- now better some diaphroesis Objective Vitals Vital Signs Date Time Temp Pulse Resp B/P (MAP) Pulse Ox O2 Delivery O2 Flow Rate FiO2 10/25/16 06:19 57 10/25/16 05:18 59 10/25/16 04:50 55 10/25/16 03:20 98.2 60 16 114/72 (86) 97 10/25/16 03:17 54 10/25/16 02:07 53 10/25/16 01:00 58 10/25/16 00:32 54 10/24/16 23:15 98.3 60 18 137/74 (95) 95 10/24/16 23:00 61 10/24/16 22:00 64 10/24/16 21:00 64 10/24/16 20:00 66 10/24/16 19:20 98.6 65 16 104/58 (73) 96 10/24/16 19:00 63 10/24/16 15:00 58 16 96/65 (75) 95 10/24/16 13:00 68 10/24/16 12:00 66 10/24/16 11:00 98.5 72 20 133/60 (84) 95 10/24/16 11:00 70 10/24/16 10:00 64 I/O 10/24/16 10/24/16 10/24/16 10/25/16 10/25/16 10/25/16 07:00 15:00 23:00 07:00 15:00 23:00 Intake Total 480 ml 480 ml Output Total 375 ml 1425 ml Balance 480 ml -375 ml -945 ml Intake Oral 480 ml 480 ml Output Urine Total 375 ml 1425 ml # Voids 3 2 Result Diagram: 10/23/16 1130 10/23/16 1130 Imaging Last Impressions Chest X-Ray 10/23/16 1118 Signed Impressions: Service Date/Time: Sunday, October 23, 2016 12:45 - CONCLUSION: No acute cardiopulmonary process. Reinier Bunch MD CT Angiography 10/23/16 0000 Signed Impressions: Service Date/Time: Sunday, October 23, 2016 14:24 - CONCLUSION: 1. No evidence for pulmonary embolism. 2. No infiltrate or pleural effusion. 3. Coronary artery calcifications. Jus F. Tocci, MD Objective Remarks awake and alert, NAD anicteric lungs clear regular rhythm abdomen soft, nontender extremities no edema neuro exam- unremarkable A/P Assessment and Plan 71-year-old male with past medical history significant for coronary artery disease status post previous [place] with implantation of four cardiac stents in 2004 , hypertension, dyslipidemia and degenerative disc disease lumbar spine status post previous lumbar fusion who presents to [facility] ED with complaints of ongoing chest pain. ACS,unstable angina in patient with h/o CAD s/p previous GA and cardiac stent implants had chest pain this am- nitroglycerin drip increase going for cath this noon CTA - no evidence for pulmonary embolus, infiltrate or pleural effusion. EKG -with incomplete block. Last cardiac catheterization in our system dated 05/25/08 shows normal LV function widely patent stents 4 and 30-40% disease of the LAD Supplemental oxygen Aspirin 81 mg daily. CCB, [place] on Heparin drip- held for cath today Hypertension, controlled Continue patient on his home dose of antihypertensive medications including enalapril 5 mg daily and diltiazem 180 mg daily Dyslipidemia Intolerant to statins due to muscle pain/weakness Continue patient's home dose of Welchol BPH Continue patient's home dose of finasteride Chronic low back pain status post previous fusion Neuropathy Continue patient's home dose of gabapentin Continue patient's home muscle relaxant as needed TORI Will discuss with the patient bring in his own home CPAP machine if he has one DVT prophylaxis- on heparin drip for above- Michael Rasmussen MD Oct 25, 2016 09:28
[2016-10-25] MEDS: COLESEVELAM HCL 625 MG TAB PO SCH (10:28)
[2016-10-25] MEDS ORDERED: HEPARIN-NS/PF INJ 1,000 ML ONE (11:59)
[2016-10-25] MEDS ORDERED: MIDAZOLAM HCL 2 MG/2 ML VIAL ONE ×2 (12:00→13:22)
[2016-10-25] MEDS ORDERED: NITROGLYCERIN 400 MCG/SPRAY 4.9 GM BOTTLE SL ONE (13:07)
[2016-10-25] MEDS ORDERED: HEPARIN SODIUM - IV 10,000 UNITS/10 ML VIAL ONE (13:17)
[2016-10-25] MEDS ORDERED: CLOPIDOGREL 300 MG TAB ONE (13:56)
[2016-10-25] MEDS ORDERED: ASPIRIN 81 MG CHEW TAB ONE ×2 (13:56→13:57)
--- NOTE | 2016-10-25 14:36 | CATHPROC ---
[facility] HIS Report Study Information Study Number Admission Scheduled Start Study Start [id number] Oct 23 2016 4:02PM 10/25/2016 Oct 25 2016 11:39AM [place] [facility] Cardiac Catheterization Admit Source Facility Department Other [facility] Physician and Clinical Staff Initial MD Fairchild, [place] Mail [employer]rier Ion Sesay,ALDAIR Recorder Renya Ortiz,RT(R) Scrub Kassy Vinson,RT(R) Procedures Performed Procedure Location (Site) Vessel Name Coronary Angiograms LCA Left Coronary Coronary Angiograms RCA Right Coronary Drug Eluting Inflatio RCA Dist Right Coronary L Heart Cath LV Gram-hand inj. LV LV Ventricle PTCA RCA Dist Right Coronary Wire insertion Fem Art (right) Femoral Art Equipment Time Selector Packer Description Size Mfg Part Number Used/Scraped [id number] 13:17 [employer]UA [employer]IT[employer] C[employer] WIRE, ASAHI PROWATER 180CM 180CM Used *[id number] [id number] 13:35 LUA CRITICAL CARE WIRE, ASAHI PROWATER 180CM 180CM Used *[id number] TRANSDUCER, [place] Trevor [id number] 13:06 RUFFIN LOZANO * Used W/STOCKCOCK *[id number] [id number] 13:17 [employer] AL 1 GUIDE CATHETER RUNWAY FR 6 Used *[id number] 13:27 [employer] BALLOON, 2.5 12MM EMERGE MR 2.5 12MM Used *[id number] 13:42 [employer] STENT, SYNERGY 3.0 X 16MM Used *[id number]-502-10.0- INTRODUCER SET, 12:09 [employer]OOK [employer]. FR 5 SC-NT-U-SST Used MICROPUNCTURE, STIFFENED *[id number] 538-476 *[id number] 534-676T *[id number] 538-422 *[id number] 538-453S *[id number] 13:06 MEDLINE INDUSTRIES PACK, CCL CUSTOM * Used *[id number] 13:06 MEDLINE PACER PEN, SKIN DUAL W/ RULER * Used *[id number] BALLOON, 2.25 X 12MM [id number] 13:39 MEDTRONIC 12MM Used EUPHORA *[id number] BALLOON, 3.0 X 12MM NC [id number] 13:47 MEDTRONIC 12MM Used EUPHORA *[id number] [id number] 13:40 [employer] 30 WALLACE INDEFLATOR Used *[id number] 13:17 [employer] MEDICAL SHEATH, FR6.5 PRELUDE 11CM FR 6.5 038ACT Used *[id number] 13:06 [employer] MEDICAL WIRE, 3MMJ .035 180CM 180CM Used *9693520 PROBE COVER, STERILE [id number] 13:06 VTL GroupEK MEDICAL * Used ULTRASOUND W/ GEL *[id number] [id number] 13:06 NAMIC MANIFOLD, 4 PORT * Used *[id number] 13:06 NYCOMED OMNIPAQUE, 350 MG, 150ML 150ML [id number] Used [id number] 13:06 [employer] BLANKET,WARM AIR CCL * Used *[id number] [id number] 13:06 [employer] MEDICAL SHEATH, FR4 TERUMO (10CM) FR 4 Used *[id number] Equipment Model, Serial, Lot Number and Expiration Data Description Model Number Serial Number Lot Number Expiration Date AL 1 GUIDE CATHETER RUNWAY [id number] 05-03-2019 BALLOON, 2.5 12MM EMERGE MR [id number] 05-09-2019 BALLOON, 3.0 X 12MM MS [id number] 08-27-2018 EUPHORA INTRODUCER SET, [id number] 09-21-2019 MICROPUNCTURE, STIFFENED SHEATH, FR6.5 PRELUDE 11CM [id number] 09-02-2019 STENT, SYNERGY [id number] 03-14-2017 History: Current Medications Medication Dosage/Unit Route Frequency Last Date/Time Taken ASA VASOTEC CARDIZEM LASIX Neurontin History: Allergies Allergy Reaction caffeine aspirin stomach upset acetaminophen povidone-iodine calcium carbonate stomach upset History: Risk Factors Family History of Hypertension Dyslipidemia Previous IA Previous Heart Failure Premature CAD Yes Yes Yes Yes Yes Prior Valve Prior PCI Prior PCIDate Prior CABG Surgery No Yes 03/05/2004 No Cerebrovascular Peripheral Artery Chronic Lung On Dialysis Diabetes Disease Disease Disease No No No Yes No History: Symptoms/Diagnosis Selection Items Angina-unstable Chest pain History: Stress Tests Stress or Imaging Studies Performed No History: Other Disease Selection Items CAD HTN History: Other Current Smoker Quit Packs a Day Years Used Pack Years No 27 Years Ago 2 30 60 Labs Hgb (g/dl) Hct (%) RBC (MIL/MM3) WBC (l/cumm) Platelets (thousands) 11.60-17.00 35.00-51.00 4.00-5.90 4.00-11.00 150.00-450.00 15.5 47.2 5.3 6.4 234 Glucose (mg/dl) BUN (mg/dl) Creatinine (mg/dl) BUN:Creatinine (1:x) 74.00-106.00 7.00-18.00 0.50-1.30 10.00-20.00 83 19 0.9 21.1 Na (meq/l) K (meq/l) 136.00-145.00 3.50-5.10 142 4.1 Troponin I (ng/ml) CPK (u/l) CPK-MB (ng/ML) 0.02-0.05 26.00-308.00 0.50-3.60 0.02 70 Not Drawn Medication Medication Total Dose (Bolus/Oral) Medication Total Dosage/Unit 1% XYLOCAINE 20 mL ASPIRIN 324 mg FENTANYL 100 mcg HEPARIN 9000 units NITROGLYCERIN S/L 0.4 mg OXYGEN 2 l/min PLAVIX 600 mg VERSED 4 mg Medications (Bolus/Oral) Medication Time Given Dosage/Unit Administered By Reason OXYGEN 10/25/2016 11:54:12 AM 2 l/min Ion Sesay 2 l/min OXYGEN given in lab by Ion Sesay RN via Nasal. Ordered by Shazia Fairchild. VERSED 10/25/2016 1:00:37 PM 2 mg Ion Sesay 2 mg VERSED given in lab by Ion Sesay RN in Left Antecubital via Peripheral IV. Ordered by Shazia Mike. FENTANYL 10/25/2016 1:01:15 PM 50 mcg Ion Sesay 50 mcg FENTANYL given in lab by Ion Sesay RN in Left Antecubital via Peripheral IV. Ordered by Shazia Fairchild. 1% XYLOCAINE 10/25/2016 1:03:52 PM 20 mL Shazia Fairchild 20 mL 1% XYLOCAINE given in lab by Shazia Fairchild in Right Groin via Subcutaneous. Ordered by Shazia Payne. NITROGLYCERIN S/L 10/25/2016 1:08:16 PM 0.4 mg Ion Sesay 0.4 mg NITROGLYCERIN S/L given in lab by Ion Sesay RN via Sublingual. Ordered by Ree Fairchild. HEPARIN 10/25/2016 1:20:23 PM 7000 units Ion Sesay 7000 units HEPARIN given in lab by Ion Sesay RN in Left Antecubital via Peripheral IV. Ordered by Shazia Fairchild. VERSED 10/25/2016 1:22:11 PM 1 mg Ion Sesay 1 mg VERSED given in lab by Ion Sesay RN in Left Antecubital via Peripheral IV. Ordered by Shazia Mike. VERSED 10/25/2016 1:29:35 PM 1 mg Ion Sesay 1 mg VERSED given in lab by Ion Sesay RN in Left Antecubital via Peripheral IV. Ordered by Shazia Mike. FENTANYL 10/25/2016 1:29:40 PM 50 mcg Ion Sesay 50 mcg FENTANYL given in lab by Ion Sesay RN in Left Antecubital via Peripheral IV. Ordered by Shazia Fairchild. HEPARIN 10/25/2016 1:35:38 PM 1000 units Ion Sesay 1000 units HEPARIN given in lab by Ion Sesay RN in Left Antecubital via Peripheral IV. Ordered by Shazia Fairchild. PLAVIX 10/25/2016 2:00:00 PM 600 mg Ion Sesay 600 mg PLAVIX given in lab by Ion Sesay RN via Oral. Ordered by Shazia Fairchild. HEPARIN 10/25/2016 2:01:04 PM 1000 units Ion Sesay 1000 units HEPARIN given in lab by Ion Sesay RN in Left Antecubital via Peripheral IV. Ordered by Shazia Fairchild. ASPIRIN 10/25/2016 2:02:01 PM 324 mg Ion Sesay 324 mg ASPIRIN given in lab by Ion Sesay RN via Oral. Ordered by Shazia Fairchild. Initial Case Assessment Cardiovascular HR Rhythm NIBP Chest Pain 69 sr 133/71 0 Edema Present Skin color Skin None Normal Warm Circulatory - Right Pulses Dorsalis Pedis Femoral 1 1 Scale (0,1,2,3,4,d) Circulatory - Left Pulses Dorsalis Pedis Femoral 1 1 Scale (0,1,2,3,4,d) Neurological State Oriented to time-place- Alert Moves all extremities person Respiration - General Respiration Rate SpO2 (%) O2 (lpm) (B/min) 14 96 2 Final Case Assessment Cardiovascular HR Rhythm NIBP Chest Pain 68 sr 127/77 0 Edema Present Skin color Skin None Normal Warm Circulatory - Right Pulses Dorsalis Pedis Femoral 1 1 Scale (0,1,2,3,4,d) Circulatory - Left Pulses Dorsalis Pedis Femoral 1 1 Scale (0,1,2,3,4,d) Neurological State Oriented to time-place- Alert Moves all extremities person Respiration - General Respiration Rate SpO2 (%) O2 (lpm) (B/min) 10 97 2 Chronological Log Time Study Chronological Log 11:53:37 Patient arrived via Bed. 11:53:38 Patient Name, D.O.B, / Armband Verified By R.N. 11:53:40 Consent signed by the physician and the patient and verified by the [facility] staff. 11:53:41 Pre-op and post- op instructions given; patient acknowledges understanding of instructions. 11:53:42 Presedation assessment performed by [facility] RN. 11:54:03 Patient has been NPO for Less than 6Hrs. 11:54:04 Skin Breakdown- 11:54:05 Patient Warmer Placed on the Table. 11:54:07 Bin Prominences Protected 11:54:09 A # 20 IV was noted in the Antecubital (left). Grade = 0 11:54:11 History and physical on the chart or being dictated. 11:54:12 2 l/min OXYGEN given in lab by Ion Sesay RN via Nasal. Ordered by Shazia Fairchild. Assessment: Initial Case, HR=69 BPM, Rhythm=sr, LXHJ=155/71 mmhg, Chest Pain=0, Edema=None, Col or=Normal, Skin = Warm Right Pulses: Javier Ped=1, Femoral=1 11:54:14 Left Pulses: Javier Ped=1, Femoral=1 Neurological: State=Alert, Ox3, [place] Respiration: Resp=14 B/min, SpO2=96 %, O2=2 lpm Vitals capture started with the following parameters, Patient=Adult, Interval=5 min, Initial Pr jhgpln=675 mmHg, 11:58:44 Deflation Rate=5 mmHg, Cuff placed on Right Arm 11:59:22 HR=71 bpm, HVOZ=036/71 mmhg, SpO2=96.0 %, Resp=15 B/min, Pain=0, Digna=10, Sneed=2 12:04:23 HR=71 bpm, GXXF=919/79 mmhg, SpO2=95.0 %, Resp=12 B/min, Pain=0, Digna=10, Sneed=2 12:04:33 Patient pre-medicated with prednisone 40 mg at 0817 and benadryl 50 mg at 0817 by nurse on the floor. 12:06:33 Bilateral groins prepped with 2% chlorhexidine, and draped after a 3 min. waiting time. 12:09:24 HR=70 bpm, PPIR=982/70 mmhg, SpO2=95.0 %, Resp=13 B/min, Pain=0, Digna=10, Sneed=2 12:12:39 Pressure channel 1 zeroed. 12:13:36 MD paged 12:14:21 HR=74 bpm, UUFX=333/77 mmhg, SpO2=94.0 %, Resp=15 B/min, Pain=0, Digna=10, Sneed=2 12:19:22 HR=69 bpm, AQSJ=853/74 mmhg, SpO2=95 %, Resp=11 B/min, Pain=5, Digna=10, Sneed=2 12:20:36 MD notified again 12:24:23 HR=67 bpm, MFPC=653/72 mmhg, SpO2=98.0 %, Resp=8 B/min, Pain=5, Digna=10, Sened=2 12:29:24 HR=67 bpm, VXOG=788/73 mmhg, SpO2=97.0 %, Resp=10 B/min, Pain=5, Digna=10, Sneed=2 12:34:25 HR=69 bpm, IDAV=640/81 mmhg, SpO2=98.0 %, Resp=11 B/min, Pain=5, Digna=10, Sneed=2 12:39:27 HR=68 bpm, YBYY=863/75 mmhg, SpO2=96.0 %, Resp=20 B/min, Pain=5, Digna=10, Sneed=2 12:44:24 HR=69 bpm, QJRN=427/79 mmhg, SpO2=98.0 %, Resp=8 B/min, Pain=5, Digna=10, Sneed=2 12:49:25 HR=70 bpm, NHTP=865/80 mmhg, SpO2=96.0 %, Resp=13 B/min, Pain=5, Digna=10, Sneed=2 12:53:10 MD responded 12:54:26 HR=68 bpm, HZWJ=860/77 mmhg, SpO2=97.0 %, Resp=10 B/min, Pain=3, Digna=10, Sneed=2 12:59:29 HR=69 bpm, MUKB=553/77 mmhg, SpO2=96.0 %, Resp=9 B/min, Pain=3, Digna=10, Sneed=2 13:00:08 MD arrived. 13:00:37 2 mg VERSED given in lab by Ion Sesay, ALDAIR in Left Antecubital via Peripheral IV. Order ed by Shazia Fairchild. 13:01:15 50 mcg FENTANYL given in lab by Ion Sesay, ALDAIR in Left Antecubital via Peripheral IV. O rdered by Shazia Fairchild. Time Out. Correct patient, correct procedure,correct physician, power injector not loaded with contrast with surgical 13:02:49 team present. Time Out Concurred by , individual staff in procedure. 13:03:40 Case Start 20 mL 1% XYLOCAINE given in lab by Shazia Fairchild in Right Groin via Subcutaneous. Ordered by Devorah 13:03:52 Shazia. 13:04:28 HR=87 bpm, WQZJ=287/76 mmhg, SpO2=95.0 %, Resp=9 B/min, Digna=10, Sneed=2 13:05:30 Access site was Right Femoral Artery. 13:05:37 Reference ECG taken 13:06:10 A SHEATH, FR4 TERUMO (10CM) FR 4 was advanced into the Fem Art (right) using the Percutaneo us technique. A JL 5.0 INFINITI CATHETER FR 4 was advanced over a wire. OMNIPAQUE, 350 MG, 150ML 150ML was us ed for 13:07:16 injections. 13:08:16 0.4 mg NITROGLYCERIN S/L given in lab by Ion Sesay RN via Sublingual. Ordered by Shazia Mike. 13:08:58 The LCA was injected and visualized at various angles. OMNIPAQUE, 350 MG, 150ML 150ML used . 13:09:29 HR=69 bpm, PDIU=568/73 mmhg, SpO2=96.0 %, Resp=17 B/min, Digna=10, Sneed=2 13:10:58 Catheter was removed A 3DRC INFINITI CATHETER FR 4 was advanced over a wire. OMNIPAQUE, 350 MG, 150ML 150ML was used for 13:11:39 injections. 13:13:02 The RCA was injected and visualized at various angles. OMNIPAQUE, 350 MG, 150ML 150ML used . 13:14:21 Catheter was removed 13:14:28 HR=76 bpm, JOVC=066/69 mmhg, SpO2=94.0 %, Resp=14 B/min, Digna=10, Sneed=2 A PIGTAIL ANG. INFINITI CATHETER FR 4 was advanced over a wire. OMNIPAQUE, 350 MG, 150ML 150ML was used 13:15:50 for injections. Recorded Pressure: LV, HR=76, Condition=Condition 1 13:17:13 (Left Ventricle) LV 116/3/10 13:18:12 The LV was manually injected with 10 cc's and visualized. OMNIPAQUE, 350 MG, 150ML 150ML us ed. Recorded Pressure: LV, Ao, HR=75, Condition=Condition 1 13:18:21 (Left Ventricle) LV 115/2/12, (Aorta) Ao 116/64/87 13:19:08 Catheter was removed A SHEATH, FR6.5 PRELUDE 11CM FR 6.5 was exchanged in the Fem Art (right). This was necessary in order to 13:19:11 accomodate a larger catheter. 13:19:27 HR=76 bpm, PGIM=591/68 mmhg, SpO2=94.0 %, Resp=15 B/min, Digna=10, Sneed=2 7000 units HEPARIN given in lab by Ion Sesay RN in Left Antecubital via Peripheral IV. Or dered by Devorah, 13:20:23 Shazia. A AL 1 GUIDE CATHETER RUNWAY FR 6 was advanced over a wire. OMNIPAQUE, 350 MG, 150ML 150ML was used for 13:20:33 injections. 13:22:11 1 mg VERSED given in lab by Ion Sesay RN in Left Antecubital via Peripheral IV. Order ed by Shazia Fairchild. 13:24:30 HR=74 bpm, YVIW=788/59 mmhg, SpO2=93.0 %, Resp=13 B/min, Digna=10, Sneed=2 13:25:30 A WIRE, ASAHI PROWATER 180CM 180CM was inserted via Fem Art (right). 13:25:51 Activated Clotting Time Drawn 13:29:29 HR=70 bpm, ATPF=868/61 mmhg, SpO2=95.0 %, Resp=13 B/min, Digna=10, Sneed=2 13:29:35 1 mg VERSED given in lab by Ion Sesay RN in Left Antecubital via Peripheral IV. Order ed by Shazia Fairchild. 13:29:40 50 mcg FENTANYL given in lab by Ion Sesay RN in Left Antecubital via Peripheral IV. O rdered by Shazia Fairchild. A BALLOON, 2.5 12MM EMERGE MR 2.5 12MM was inserted over WIRE, ASAHI PROWATER 180CM 180CM via t he RCA 13:30:41 Dist. 13:31:37 ACT (Normal Range 90-180) = 239 13:34:30 HR=67 bpm, OJUY=097/57 mmhg, SpO2=94.0 %, Resp=11 B/min, Digna=10, Sneed=2 13:34:52 Balloon Removed. 13:35:29 A WIRE, ASAHI PROWATER 180CM 180CM was inserted via Fem Art (right). 1000 units HEPARIN given in lab by Ion Sesay RN in Left Antecubital via Peripheral IV. Or dered by Devorah, 13:35:38 Humayun. A BALLOON, 2.25 X 12MM EUPHORA 12MM was inserted over WIRE, ASAHI PROWATER 180CM 180CM via the RCA 13:38:57 Dist. 13:39:33 HR=67 bpm, NIBP=99/61 mmhg, SpO2=95.0 %, Resp=11 B/min A BALLOON, 2.25 X 12MM EUPHORA 12MM over a WIRE, ASAHI PROWATER 180CM 180CM in the RCA Dist was inflated 13:39:34 using a 30 WALLACE INDEFLATOR at 14 wallace for 20 sec. 13:40:20 Balloon Removed. A STENT, SYNERGY 3.0 X 16MM was advanced through a AL 1 GUIDE CATHETER RUNWAY FR 6 over a WIRE, ASAHI 13:42:45 PROWATER 180CM 180CM. 13:44:28 HR=68 bpm, KJUA=360/61 mmhg, SpO2=95.0 %, Resp=11 B/min, Digna=10, Sneed=2 A STENT, SYNERGY 3.0 X 16MM was deployed using a 30 WALLACE INDEFLATOR at 11 atmospheres for 37 sec onds in the 13:44:42 RCA Dist. 13:45:44 Wire removed (first prowater) 13:47:11 Delivery device removed A BALLOON, 3.0 X 12MM NC EUPHORA 12MM was inserted over WIRE, ASAHI PROWATER 180CM 180CM via th e RCA 13:48:00 Dist. 13:49:29 HR=67 bpm, BCVF=701/60 mmhg, SpO2=95.0 %, Resp=12 B/min, Digna=10, Sneed=2 A BALLOON, 3.0 X 12MM NC EUPHORA 12MM over a WIRE, ASAHI PROWATER 180CM 180CM in the RCA Dist w as 13:49:56 inflated using a 30 WALLACE INDEFLATOR at 16 wallace for 19 sec. A BALLOON, 3.0 X 12MM NC EUPHORA 12MM over a WIRE, ASAHI PROWATER 180CM 180CM in the RCA Dist w as 13:50:43 inflated using a 30 WALLACE INDEFLATOR at 12 wallace for 12 sec. 13:52:13 Balloon Removed. 13:52:16 Wire removed (second prowater) 13:52:19 Catheter was removed 13:55:00 Patient complaining of chest pain post stent deployment. 13:55:05 HR=66 bpm, BRVO=747/68 mmhg, SpO2=95.0 %, Resp=10 B/min, Pain=4, Digna=10, Sneed=2 A 3DRC INFINITI CATHETER FR 6 was advanced over a wire. OMNIPAQUE, 350 MG, 150ML 150ML was used for 13:55:36 injections. 13:56:38 Wire removed 13:57:03 The RCA was injected and visualized at various angles. OMNIPAQUE, 350 MG, 150ML 150ML used . 13:57:20 Catheter was removed 13:59:22 Activated Clotting Time Drawn 13:59:32 HR=73 bpm, ZTBM=696/72 mmhg, SpO2=95.0 %, Resp=10 B/min, Digna=10, Sneed=2 14:00:00 600 mg PLAVIX given in lab by Ion Sesay RN via Oral. Ordered by Shazia Fairchild. 1000 units HEPARIN given in lab by Ion Sesay RN in Left Antecubital via Peripheral IV. Or dered by Devorah, 14:01:04 Shazia. 14:01:18 An injection in the Fem Art (right) was made through the SHEATH, FR6.5 PRELUDE 11CM FR 6.5. 14:02:01 324 mg ASPIRIN given in lab by Ion Sesay, ALDAIR via Oral. Ordered by Shazia Fairchild. 14:03:08 Sheath removed 14:03:19 closure device placement in the Fem Art (right) 14:03:31 Case End 14:04:31 HR=70 bpm, UCZM=987/77 mmhg, SpO2=95.0 %, Resp=8 B/min, Digna=10, Sneed=2 14:05:45 ACT (Normal Range 90-180) = 248 14:06:30 Sterile dressing applied to site 14:06:31 No case complications noted. 14:06:32 Cine recording checked. 14:06:34 Bedside Report will be given. 14:06:36 Contrast Scanned 14:06:52 A Left Heart Cath was performed. Assessment: Final Case, HR=68 BPM, Rhythm=sr, RTWL=791/77 mmhg, Chest Pain=0, Edema=None, Color =Normal, Skin = Warm Right Pulses: Javier Ped=1, Femoral=1 14:07:06 Left Pulses: Javier Ped=1, Femoral=1 Neurological: State=Alert, Ox3, [place] Respiration: Resp=10 B/min, SpO2=97 %, O2=2 lpm 14:08:00 Vitals capture stopped. End Study - Contrast Media Used In Study Contrast Total Opened (mL) Total Used (mL) Total Wasted (mL) Omnipaque 140 140 0 End Study - Maximum Contrast Load Max Contrast Load (mL) 666.7 End Study - Radiation Exposure Fluoro Time (minutes) 12.0 End Study - Patient Disposition Complications Transferred To No Telemetry Bed
[2016-10-25] MEDS ORDERED: ACETAMINOPHEN 325 MG TAB PO PRN (15:30)
[2016-10-25] MEDS ORDERED: oxyCODONE/ACETAMINOPHEN 5 MG/325 MG TAB PO PRN (15:30)
[2016-10-25] MEDS ORDERED: ONDANSETRON HCL 4 MG/2 ML VIAL IV PRN (15:30)
[2016-10-25] MEDS ORDERED: ATROPINE SULFATE 1 MG/ML VIAL IV PRN (15:30)
[2016-10-25] MEDS ORDERED: MISC INFORMATION XX ONE (15:30)
[2016-10-25] MEDS ORDERED: SODIUM CHLOR 0.9% 250 ML INJ 250 ML IV PRN (15:30)
[2016-10-25] MEDS ORDERED: IOHEXOL 350 MG/ML 100 ML BTL (for Cath Lab) OTHER ONE (15:51)
[2016-10-25] MEDS ORDERED: IOHEXOL 350 MG/ML 50 ML BTL (for Cath Lab) OTHER ONE (15:51)
[2016-10-25] MEDS ORDERED: BACITRACIN OINT 0.9 GM PKT TOP ONE (17:00)
--- NOTE | 2016-10-25 19:58 | EKG ---
Date Performed: 10/24/2016 Time Performed: 14:56:52 PTAGE: 71 years EKG: Sinus rhythm with 1st degree A-V block. Left axis deviation RBBB with left anterior fascicular block Low QRS volt ages in precordial leads Abnormal ECG PREVIOUS TRACING : 10/23/2016 17.00 Compared to prior tracing no significant change DOCTOR: Anderson Pro Interpretating Date/Time 10/25/2016 19:57:11
[2016-10-25] MEDS: TEMAZEPAM 15 MG CAP PO PRN (22:27)
[2016-10-26] VITALS (11 sets, daily range): BP systolic 106–126; BP diastolic 73–76; PULSE 54–68; RESP 16; TEMP 97.9–98.3; O2SAT 96–98
[2016-10-26] MEDS: SODIUM CHLOR 0.9% 1000 ML INJ 1,000 ML IV SCH ×2 (01:20→01:25)
[2016-10-26] MEDS: NITROGLYCERIN 2% OINT 1 GM PACKET TOPICAL SCH ×2 (01:25→08:51)
[2016-10-26] MEDS: ASPIRIN 81 MG CHEW TAB CHEW SCH (08:51)
[2016-10-26] MEDS: FINASTERIDE 5 MG TAB PO SCH (08:52)
[2016-10-26] MEDS: GABAPENTIN 300 MG CAP PO SCH (08:52)
[2016-10-26] MEDS: METOPROLOL TARTRATE 25 MG TAB PO SCH (08:52)
[2016-10-26] MEDS: ENALAPRIL MALEATE 5 MG TAB PO SCH (08:53)
[2016-10-26] MEDS: METAXALONE 800 MG TAB PO SCH (08:53)
[2016-10-26] MEDS: DILTIAZEM-CD 180 MG CAP ER PO SCH (08:54)
[2016-10-26] MEDS: COLESEVELAM HCL 625 MG TAB PO SCH (08:58)
[2016-10-26] MEDS ORDERED: CLOPIDOGREL 75 MG TAB PO SCH (09:00)
--- NOTE | 2016-10-26 09:12 | HHI.PR ---
Subjective Remarks chest pains or shortness of breath overnight no groin pain up and ambulating Objective Vitals Vital Signs Date Time Temp Pulse Resp B/P (MAP) Pulse Ox O2 Delivery O2 Flow Rate FiO2 10/26/16 06:20 60 10/26/16 05:19 54 10/26/16 04:24 60 10/26/16 03:25 57 10/26/16 03:25 97.9 57 16 106/76 (86) 96 10/26/16 02:26 54 10/26/16 01:35 54 10/26/16 00:00 54 10/25/16 23:15 98.0 67 18 125/66 (85) 96 10/25/16 23:00 56 10/25/16 22:00 60 10/25/16 21:00 78 10/25/16 20:15 97.8 65 16 148/71 (96) 94 10/25/16 20:15 70 10/25/16 18:25 98.3 73 18 129/73 (91) 94 10/25/16 18:25 69 10/25/16 17:09 98.3 66 18 134/70 (91) 94 10/25/16 17:08 66 10/25/16 16:09 70 10/25/16 16:09 98.3 68 18 120/66 (84) 94 10/25/16 15:09 98.3 67 16 115/76 (89) 95 10/25/16 15:09 67 10/25/16 11:33 97.7 76 16 118/70 (86) 95 10/25/16 11:33 76 10/25/16 10:16 74 10/25/16 09:55 67 I/O 10/25/16 10/25/16 10/25/16 10/26/16 10/26/16 10/26/16 07:00 15:00 23:00 07:00 15:00 23:00 Intake Total 480 ml 640 ml 480 ml Output Total 1425 ml 1750 ml 900 ml Balance -945 ml -1110 ml -420 ml Intake Oral 480 ml 640 ml 480 ml Output Urine Total 1425 ml 1750 ml 900 ml # Bowel Movements 2 Result Diagram: 10/23/16 1130 10/23/16 1130 Imaging Last Impressions Chest X-Ray 10/23/16 1118 Signed Impressions: Service Date/Time: Sunday, October 23, 2016 12:45 - CONCLUSION: No acute cardiopulmonary process. Reinier Bunch MD CT Angiography 10/23/16 0000 Signed Impressions: Service Date/Time: Sunday, October 23, 2016 14:24 - CONCLUSION: 1. No evidence for pulmonary embolism. 2. No infiltrate or pleural effusion. 3. Coronary artery calcifications. Jus Navarro MD Objective Remarks awake and alert, NAD anicteric lungs clear regular rhythm abdomen soft, nontender right groin- no hematoma, good femoral pulses, good peripheral pulses extremities no edema neuro exam- unremarkable Procedures 10/25- - cardiac catheterization- stent placed on RCA A/P Assessment and Plan 71-year-old male with past medical history significant for coronary artery disease status post previous WI with implantation of four cardiac stents in 2004 , hypertension, dyslipidemia and degenerative disc disease lumbar spine status post previous lumbar fusion who presents to [facility] ED with complaints of ongoing chest pain. ACS S/P cardiac catheterization stent placed - RCA h/o CAD s/p previous WI and cardiac stent implants CTA - no evidence for pulmonary embolus, infiltrate or pleural effusion. EKG -with incomplete block. Last cardiac catheterization in our system dated 05/25/08 shows normal LV function widely patent stents 4 and 30-40% disease of the LAD Supplemental oxygen CCB, [place], on BB, Plavix Hypertension, controlled Continue patient on his home dose of antihypertensive medications including enalapril 5 mg daily and diltiazem 180 mg daily Dyslipidemia Intolerant to statins due to muscle pain/weakness on Welchol BPH Continue patient's home dose of finasteride Chronic low back pain status post previous fusion Neuropathy Continue patient's home dose of gabapentin Continue patient's home muscle relaxant as needed TORI Will discuss with the patient bring in his own home CPAP machine if he has one DVT prophylaxis- on heparin drip for above- DC if cleared with cardiology Michael Rasmussen MD Oct 26, 2016 09:12
--- NOTE | 2016-10-26 11:16 | EKG ---
Date Performed: 10/26/2016 Time Performed: 05:51:00 PTAGE: 71 years EKG: Sinus rhythm with borderline 1st degree A-V block Left axis deviation Right bundle branch block Possible inferior infarct - age undetermined Abnormal ECG PREVIOUS TRACING : 10/24/2016 14.56 No significant change from previous tracing noted. DOCTOR: Chris Arnold Interpretating Date/Time 10/26/2016 11:13:24
--- NOTE | 2016-10-26 11:16 | PD.CARD.PN ---
Subjective Subjective Remarks No groin pain, swelling. No CP. Feels good (Elsi George) Subjective Remarks The exam, history, and the medical decision-making described in the above note were completed with the assistance of the mid-level provider. I reviewed and agree with the findings presented. I attest that I had a [id number] encounter with the patient on the same day, and personally performed and documented my assessment and findings in the medical record. Ok to d/c (Shazia Fairchild MD) Objective Medications Current Medications Medications (Trade) Dose Ordered Sig/Roxana Route Start Time Stop Time Status Last Admin (Aspirin Chew) 81 mg DAILY CHEW 10/24/16 09:00 10/26/16 08:51 (Cardizem Cd) 180 mg DAILY PO 10/24/16 09:00 10/26/16 08:54 (Vasotec) 5 mg DAILY PO 10/24/16 09:00 10/26/16 08:53 (Proscar) 5 mg DAILY PO 10/24/16 09:00 10/26/16 08:52 (Neurontin) 300 mg BID PO 10/24/16 21:00 10/26/16 08:52 (Restoril) 15 mg HS PRN PO 10/23/16 21:15 10/25/16 22:27 (Skelaxin) 800 mg BID PO 10/23/16 22:15 10/26/16 08:53 Sodium Chloride 1,000 ml @ 150 mls/hr Q6H40M IV 10/24/16 11:30 10/25/16 06:28 (Welchol) 3,125 mg DAILY@1000 PO 10/24/16 14:00 10/26/16 08:58 (Nitroglycerin 2% Oint) 1 inch Q6H TOPICAL 10/24/16 14:00 10/26/16 08:51 (Tylenol) 650 mg Q6H PRN PO 10/24/16 14:00 10/24/16 16:07 (Lopressor) 25 mg BID PO 10/24/16 14:00 10/26/16 08:52 Nitroglycerin/ Dextrose 250 ml @ 1.5 mls/hr TITRATE PRN IV 10/24/16 15:15 (Morphine Inj) 1 mg Q2H PRN IV 10/24/16 18:30 (Tylenol) 325 mg Q4H PRN PO 10/25/16 15:30 (Percocet 5-325 Mg) 1 tab Q4H PRN PO 10/25/16 15:30 (Plavix) 75 mg DAILY PO 10/26/16 09:00 10/26/16 08:52 (Atropine Inj) 0.5 mg UNSCH PRN IV 10/25/16 15:30 Sodium Chloride 250 ml @ 500 mls/hr ONCE PRN IV 10/25/16 15:30 10/26/16 15:29 (Zofran Inj) 4 mg Q4H PRN IV 10/25/16 15:30 Vital Signs / I&O Vital Signs Date Time Temp Pulse Resp B/P (MAP) Pulse Ox O2 Delivery O2 Flow Rate FiO2 10/26/16 10:58 62 10/26/16 09:12 68 10/26/16 08:00 65 10/26/16 07:00 61 10/26/16 07:00 98.3 68 16 126/73 (90) 98 10/26/16 06:20 60 10/26/16 05:19 54 10/26/16 04:24 60 10/26/16 03:25 57 10/26/16 03:25 97.9 57 16 106/76 (86) 96 10/26/16 02:26 54 10/26/16 01:35 54 10/26/16 00:00 54 10/25/16 23:15 98.0 67 18 125/66 (85) 96 10/25/16 23:00 56 10/25/16 22:00 60 10/25/16 21:00 78 10/25/16 20:15 97.8 65 16 148/71 (96) 94 10/25/16 20:15 70 10/25/16 18:25 98.3 73 18 129/73 (91) 94 10/25/16 18:25 69 10/25/16 17:09 98.3 66 18 134/70 (91) 94 10/25/16 17:08 66 10/25/16 16:09 70 10/25/16 16:09 98.3 68 18 120/66 (84) 94 10/25/16 15:09 98.3 67 16 115/76 (89) 95 10/25/16 15:09 67 10/25/16 11:33 97.7 76 16 118/70 (86) 95 10/25/16 11:33 76 I/O 10/25/16 10/25/16 10/25/16 10/26/16 10/26/16 10/26/16 07:00 15:00 23:00 07:00 15:00 23:00 Intake Total 480 ml 640 ml 480 ml Output Total 1425 ml 1750 ml 900 ml Balance -945 ml -1110 ml -420 ml Intake Oral 480 ml 640 ml 480 ml Output Urine Total 1425 ml 1750 ml 900 ml # Bowel Movements 2 Physical Exam GENERAL: Obese, middle age male, no distress SKIN: Warm and dry. HEAD: Normocephalic. EYES: No scleral icterus. No injection or drainage. NECK: Supple, trachea midline. No JVD or lymphadenopathy. CARDIOVASCULAR: Regular rate and rhythm without murmurs, gallops, or rubs. Right groin dressing C/D/I RESPIRATORY: Breath sounds equal bilaterally. No accessory muscle use. GASTROINTESTINAL: Abdomen soft, non-tender, nondistended. MUSCULOSKELETAL: No cyanosis, or edema. BACK: Nontender without obvious deformity. No CVA tenderness. Imaging Last 72 hours Impressions Chest X-Ray 10/23/16 1118 Signed Impressions: Service Date/Time: Sunday, October 23, 2016 12:45 - CONCLUSION: No acute cardiopulmonary process. Reinier Bunch MD (Elsi George) Assessment and Plan Assessment and Plan ASHD- s/p- cardiac cath 10/25/2016 with coronary stent HLD- allergic to statins. LDL > 70. Chronic diastolic CHF, no evidence of exacerbation HTN Obesity PLAN: Rx for Plavix and metoprolol tartrate on chart. Discussed importance of plavix daily. Resume home meds including IRVING, Welchol and ASA. He is intolerant of multiple statins due to severe myalgias. We will consider patient for PCSK9 inhibitor. Will discuss outpatient The patient will follow up in the office in 1-2 weeks. Instructed to maintain light activity until evaluated in the office. The patient was seen and evaluated by Dr Fairchild who completed face to face encounter, completed a physical exam and participated in the evaluation and management. (Elsi George) Elsi George Oct 26, 2016 11:16 Shazia Fairchild MD Oct 26, 2016 12:59
--- NOTE | 2016-10-26 11:52 | MA ---
cc: LELA JOYNER HUMAYUN A. M.D. DATE: 10/25/2016 INDICATION FOR CATHETERIZATION Unstable angina. CONSENT Full informed consent was obtained prior to the procedure. The risk of , bleeding, myocardial infarction, perforation, aspiration, foreseen and unforeseen complications were reviewed. The patient fully appeared to understand the risks. PROCEDURAL STATEMENT The patient was draped and prepped in the usual manner. The right femoral artery was entered using micropuncture technique with ultrasound. Via the 4-Danish sheath left and right coronary catheters were used to intubate the left and right coronaries. Pigtail catheter was used to intubate the left ventricle. Multiple angiographic views were carried out. At the end of the catheterization procedure all catheters and sheaths were removed. The 4-Danish sheath was exchanged for a 6-Danish sheath. The patient was given heparin. The first ACT was 239. The patient was given a further 1000 units of heparin. The patient was given further heparin later and the final ACT of 248 approximately was obtained. The patient was given a further 1000 units of heparin. After the ACT was obtained the ART 3.5 guide catheter was used to intubate the right coronary. A 0.014 Prowater wire was passed across the distal stenosis. The distal stenosis was 95% and was distal to a previously placed stent of before the bifurcation of the distal right coronary. Following this a 2.5 mm was passed on this wire but would not go distally. A 2.25 balloon was then passed and inflated to 14 atmospheres. Following this a 16 mm x 3-0 Synergy stent was passed across the lesion and inflated to nominal pressures. The stent was postdilated with a high pressure balloon to 16 atmospheres. Check angiograms were performed. The patient still had some shoulder pain at the end of the procedure so a second angiogram was performed and was noted to be widely patent. A femoral angiogram was performed through the sheath and Angio-Seal placed in the usual manner. FINDINGS HEMODYNAMICS The aortic pressure was 116/64 with a mean of 87. The left ventricular pressure was 115 with a left ventricular end-diastolic pressure of 12. No evidence of significant gradient on pullback across the LV outflow tract and aortic valve. LEFT VENTRICULOGRAM The overall left ventricular ejection fraction was estimated at 60%. There was no evidence of significant mitral regurgitation or mural thrombus. CORONARIES The left main was large and free of significant disease. The left anterior descending artery was a very tortuous vessel. There was a medium to large diagonal branch that was free of significant disease. The circumflex vessel was a large vessel with a large first obtuse marginal branch, appeared to have some mild diffuse 25-30% ____ stenosis. The LAD was tortuous with 25% disease. The right coronary artery was a large dominant vessel there was evidence of previously placed stents in the proximal right coronary. There was also a stent in the distal right coronary; just distal to this stents with high-grade 90% lesion, following the new stent placement the 95% lesion was reduced to 0%. CONCLUSION High-grade RCA stenosis treated with Synergy 16 mm x 3 0 stent postdilated nominal pressures. FINDINGS The aortic pressure was 116/64 with a mean of 87, left ventricular pressure was 115 with a left ventricular end-diastolic pressure of 12. LEFT VENTRICULOGRAM The overall left ventricular ejection fraction is well preserved at 60%. The right coronary artery was a large dominant vessel with a large posterior descending and a large posterolateral branch. PLAN The patient was treated with Plavix, was also treated with sedation with Fentanyl, the patient also received aspirin. Will plan to discharge the patient tomorrow on Plavix and aspirin. Follow up in approximately 1-2 weeks time. Shazia Fairchild MD, FRCP,FACC HAJ/TLL /2:20 PM /11:11 AM JOSE
[2016-10-26] MEDS ORDERED: CLOP75TA PO (12:10)
[2016-10-26] MEDS ORDERED: METO25TA3 PO (12:10)
--- NOTE | 2016-10-26 12:15 | HHI.DS ---
Discharge Summary Admission Date Oct 25, 2016 at 09:12 Discharge Date: Oct 26, 2016 Admitting Diagnosis CHEST PRESSURE (1) ACS (acute coronary syndrome) ICD Code: I24.9 - Acute ischemic heart disease, unspecified Diagnosis: Principal Procedures 10/25- - cardiac catheterization- stent placed on RCA Brief History - From Admission Written by MAURO Granados acting as scribe for Dr. Rasmussen on 10/23/16 at 16:54. This is a 71-year-old male with past medical history significant for coronary artery disease status post previous VA with implantation of four cardiac stents in 2004, hypertension, dyslipidemia and degenerative disc disease lumbar spine status post previous lumbar fusion who presents to [facility] ED with complaints of ongoing chest pain. Patient states that symptoms began one month ago and at that time he was experiencing intermittent left-sided chest pressure. For the past week, the chest pain has been constant. He denies any aggravating or alleviating factors. He endorses cheat pain at rest. About 5 days ago, he began to experience pain in between the shoulder blades in the mid upper back which is the same type of pain he experienced when he had his previous heart attack in 2004. Patient states this morning at 3am he was awoken with chest pain as well as mid upper back pain with associated diaphoresis. He denies any associated nausea or vomiting. He denies any dizziness or lightheadedness. Denies any palpitations. Patient denies any recent illness or travel. He does endorse increased fatigue more recently and daytime somnolence. He also reports bilateral lower extremity edema. Patient admits to sleeping with 2 pillows at night. He denies any abdominal pain, diarrhea, constipation, hematochezia, dysuria or hematuria. Patient is followed by airport control operator Dr. Fairchild. He was on Plavix up until last year. He denies any change in his recent medication. He also states he is very compliant with his meds. Called his airport control operator and was instructed to come here for further evaluation In the ED, patient's initial troponin is less than 0.02. Chest x-ray shows no acute cardiopulmonary process. CTA was also obtained and shows no evidence for pulmonary embolus, no infiltrate or pleural effusion and coronary artery calcifications. Cardiology has been consulted while patient was in the ED and requested admission CIC for observation. EKG shows no acute changes CBC/BMP: 10/23/16 1130 10/23/16 1130 Significant Findings Laboratory Tests Test 10/23/16 12:20 10/23/16 16:55 10/24/16 16:37 10/24/16 23:50 D-Dimer Quantitative (PE/DVT) 0.53 MG/L FEU (0.00-0.50) Troponin I LESS THAN 0.02 NG/ML Activated Partial Thromboplast Time 31.2 SEC (24.3-30.1) Test 10/25/16 05:45 Activated Partial Thromboplast Time 42.7 SEC (24.3-30.1) Triglycerides Level 163 MG/DL (42-150) Imaging no chest pain no shortness of breath PE at Discharge awake and alert, NAD anicteric lungs clear regular rhythm abdomen soft, nontender right groin- no hematoma, good femoral pulses, good peripheral pulses extremities no edema neuro exam- unremarkable Pt update on day of discharge no chest pain/discomfort, shortness o f breath Hospital Course 71-year-old male with past medical history significant for coronary artery disease status post previous VA with implantation of four cardiac stents in 2004 , hypertension, dyslipidemia and degenerative disc disease lumbar spine status post previous lumbar fusion who presents to [facility] ED with complaints of ongoing chest pain. ACS S/P cardiac catheterization stent placed - RCA h/o CAD s/p previous VA and cardiac stent implants CTA - no evidence for pulmonary embolus, infiltrate or pleural effusion. EKG -with incomplete block. Last cardiac catheterization in our system dated 05/25/08 shows normal LV function widely patent stents 4 and 30-40% disease of the LAD Supplemental oxygen CCB, IRVING, on BB, Plavix Hypertension, controlled Continue patient on his home dose of antihypertensive medications including enalapril 5 mg daily and diltiazem 180 mg daily Dyslipidemia Intolerant to statins due to muscle pain/weakness on Welchol BPH Continue patient's home dose of finasteride Chronic low back pain status post previous fusion Neuropathy Continue patient's home dose of gabapentin Continue patient's home muscle relaxant as needed TORI Will discuss with the patient bring in his own home CPAP machine if he has one DVT prophylaxis- on heparin drip for above- DC if cleared with cardiology Pt Condition on Discharge: Good Discharge Disposition: Discharge Home Discharge Time: <= 30 minutes Discharge Instructions DIET: Follow Instructions for: Heart Healthy Diet Speech Therapy-Diet Recommends: Regular Activities you can perform: Weight Bearing as Darshan Activities to Avoid: Strenuous Activity Follow up Referrals: Cardiology - 1 Week with Armando Traylorctic PCP Follow-up - 3-5 Days with Gutierrez New Medications: Clopidogrel (Clopidogrel) 75 Mg Tab 75 MG PO DAILY for Blood Clot Prevention, #90 TAB 0 Refills Metoprolol Tartrate (Metoprolol Tartrate) 25 Mg Tab 25 MG PO BID for CAD, #60 TAB 0 Refills Continued Medications: Colesevelam (Welchol) 625 Mg Tab 3750 MG PO DAILY for Hyperlipidemia,type 2 diabetes, TAB 0 Refills Diltiazem ER 24 HR (Diltiazem ER 24 HR) 180 Mg Mihir 180 MG PO DAILY, TAB 0 Refills Enalapril Maleate (Vasotec) 5 Mg Tab 5 MG PO DAILY, 0 Refills Gabapentin (Gabapentin) 300 Mg Cap 300 MG PO BID, CAP 0 Refills Michael Rasmussen MD Oct 26, 2016 12:15
== END 2016-10-26 13:39 | disposition home or self-care (01) | DRG 247 ==
LOC: NEPC 11:08 → NEDA 16:02 → HCIS 17:57 → OBSVTOIN 10-25 09:12
PROVIDERS: ADMIT Internal Medicine; ATTEND Internal Medicine
PROC: 3E0F7GC Introduction of Other Therapeutic Substance into Respiratory Tract, Via Natural or Artificial Opening (ICD-10-PCS; principal; 2016-10-25)
PROC: 027034Z Dilation of Coronary Artery, One Artery with Drug-eluting Intraluminal Device, Percutaneous Approach (ICD-10-PCS; 2016-10-25)
PROC: 4A023N7 Measurement of Cardiac Sampling and Pressure, Left Heart, Percutaneous Approach (ICD-10-PCS; 2016-10-25)
PROC: B2111ZZ Fluoroscopy of Multiple Coronary Arteries using Low Osmolar Contrast (ICD-10-PCS; 2016-10-25)
PROC: B2151ZZ Fluoroscopy of Left Heart using Low Osmolar Contrast (ICD-10-PCS; 2016-10-25)
DX: I25.110 Atherosclerotic heart disease of native coronary artery with unstable angina pectoris (principal); I11.0 Hypertensive heart disease with heart failure; I50.32 Chronic diastolic (congestive) heart failure; G62.9 Polyneuropathy, unspecified; I25.2 Old myocardial infarction; E78.00 Pure hypercholesterolemia, unspecified; R61 Generalized hyperhidrosis; E78.5 Hyperlipidemia, unspecified; M51.36 Other intervertebral disc degeneration, lumbar region; N40.0 Benign prostatic hyperplasia without lower urinary tract symptoms; G47.33 Obstructive sleep apnea (adult) (pediatric); G89.29 Other chronic pain; M54.5 Low back pain; Z79.82 Long term (current) use of aspirin; Z87.891 Personal history of nicotine dependence; Z98.1 Arthrodesis status; Z95.5 Presence of coronary angioplasty implant and graft; Z82.49 Family history of ischemic heart disease and other diseases of the circulatory system; E66.9 Obesity, unspecified
CPT/HCPCS: 71010; 71275; 76937; 80048; 80061; 82550; 83690; 84484; 85002; 85025; 85379; 85730; 92928; 93005; 93458; 96372; C1725; C1760; C1769; C1874; C1887; C1893; G0269; G0378; J1644; J1650; J2250; J3010; J7030; J7512; Q0163; Q9967

== ENCOUNTER 2016-10-27 17:15 | Inpatient (IN) | payer MEDICARE, BC ==
[2016-10-27] VITALS: BP 109/62; PULSE 61; RESP 20; TEMP 98.4; O2SAT 96
[~2016-10-27] VITALS: Ht 180.3 cm; Wt 119.2 kg
[~2016-10-27 17:15] MED LIST changes: +ASPI81CH CHEW; -CLOP75 PO; +CLOP75TA PO; +COEN400C PO; -COLE625 PO; -COQ1200C3 PO; +CYAN1TAB24 PO; +DILT0.05 PO; +ENAL5TAB PO; -ESZO3 PO; +FINA5TAB2 PO; +GABA300C5 PO; -HYALCAP PO; +HYDR-3580 PO; +META1TAB19 PO; -META800T81 PO; +METO25TA3 PO; +MULTTAB67 PO; -NITR0.4S SL; -RAPA8CAP PO; +REST15CA PO; -TAB-TAB PO; +TEMA15CA PO; -ULTR50TA PO; +WELC625T2 PO; -[UNRECOGNIZED DRUG - CODE] PO
[2016-10-27 17:19] VITALS: BP 136/68; PULSE 64; RESP 15; TEMP 97.8; O2SAT 97
--- NOTE | 2016-10-27 17:24 | PD ---
Physical Exam Date Seen by Provider: Oct 27, 2016 Time Seen by Provider: 17:24 Narrative 71- year old male had stents placed on Sunday and was discharged from the hospital yesterday. Today the patient presents with chest pain, but denies any nausea or vomiting. Awaiting bed placement. EKG and labs drawn in triage. Data Data Last Documented VS Vital Signs Date Time Temp Pulse Resp B/P (MAP) Pulse Ox O2 Delivery O2 Flow Rate FiO2 10/27/16 17:19 97.8 64 15 136/68 (90) 97 MDM Medical Record Reviewed: Yes Supervised Visit with DUSTY: No Condition: Stable Kavita Villarreal Oct 27, 2016 17:24
--- NOTE | 2016-10-27 18:03 | RADRPT ---
EXAM DATE/TIME: 10/27/2016 17:41 [facility] COMPARISON: CT PULMONARY ANGIOGRAM, October 23, 2016, 14:24. CHEST SINGLE AP, October 23, 2016, 12:45. INDICATIONS : Chest pain post discharge 1 day ago post cardiac stent. MEDICAL HISTORY : Hypertension. Cardiovascular disease SURGICAL HISTORY : Coronary artery stent. ENCOUNTER: Initial ACUITY: 1 day PAIN SCORE: 4/10 LOCATION: Bilateral upper chest FINDINGS: PA and lateral views of the chest demonstrate the lungs to be symmetrically aerated without evidence of mass, infiltrate or effusion. The cardiomediastinal contours are unremarkable. Osseous structure s are intact. CONCLUSION: No evidence of acute cardiopulmonary disease. Alfredo Bowden MD on October 27, 2016 at 18:01 Board Certified Radiologist. This report was verified electronically.
[2016-10-27 18:19] LABS: AUTOMATED NEUTROPHIL # 5.6 TH/MM3 (1.8-7.7); BASOPHIL % 0.5 % (0.0-2.0); EOSINOPHIL # 0.1 TH/MM3 (0-0.4); EOSINOPHIL % 1.1 % (0.0-4.0); HEMATOCRIT 43.4 % (39.0-51.0); HEMO FLAGS DIFF FINAL; LYMPH % 22.1 % (9.0-44.0); LYMPHOCYTE # 1.8 TH/MM3 (1.0-4.8); MEAN CELL VOLUME 88.3 FL (80.0-100.0); MEAN CORPUSCULAR HEMOGLOBIN 29.6 PG (27.0-34.0); MEAN CORPUSCULAR HGB CONC 33.5 % (32.0-36.0); MONO % 8.3 % (0.0-8.0); PLATELET COUNT 211 TH/MM3 (150-450); RED BLOOD COUNT 4.92 MIL/MM3 (4.50-5.90); RED CELL DISTRIBUTION WIDTH 13.6 % (11.6-17.2); WHITE BLOOD COUNT 8.3 TH/MM3 (4.0-11.0)
[2016-10-27] MEDS ORDERED: ASPIRIN 325 MG TAB PO ONE (18:30)
[2016-10-27] MEDS ORDERED: NITROGLYCERIN 0.4 MG SL 25 TABS/BTL SL ONE (18:30)
[2016-10-27 18:49] VITALS: BP 103/58; PULSE 59; RESP 16; O2SAT 97
[2016-10-27 18:54] LABS: BICARBONATE 22.8 MEQ/L (21.0-32.0); POTASSIUM 4.2 MEQ/L (3.5-5.1)
[2016-10-27 19:13] VITALS: BP 98/57; PULSE 69; RESP 16; O2SAT 96
[2016-10-27 19:14] LABS: INTERNATIONAL NORMALIZED RATIO 1.1 RATIO
[2016-10-27 19:17] LABS: APTT (PATIENT) 24.3 SEC (24.3-30.1)
[2016-10-27] MEDS ORDERED: HEPARIN SODIUM - IV 10,000 UNITS/10 ML VIAL IV ONE (19:30)
--- NOTE | 2016-10-27 19:49 | PD ---
HPI Chief Complaint: Chest Pain Time Seen by Provider: 17:39 Travel History International Travel<30 days: No Contact w/Intl Traveler<30days: No Traveled to known affect area: No History of Present Illness HPI 71-year-old male that presents to the ED for evaluation of chest pressure. Per patient this chest pressure starting around 3:00 this afternoon. Per patient nothing makes it better. Did not took any medications for it. He does take Plavix and aspirin as well as metoprolol. Patient was just released from the hospital yesterday and had a heart catheter with a stent placed 2 days ago. Per patient he has had no issues until now. She states that the pain feels exactly the same as the pain that he had when he was admitted initially. He has not taken any nitroglycerin today. He denies any radiation of pain. Per patient pain is 4 out of 10 and is pressure-like. She tried to contact his senior military analyst Dr. Gutierrez but he some medication starting today he could not be seen so he was instructed to come here. PFSH Past Medical History Blood Disorders: No Heart Rhythm Problems: Yes (RBBB) Cancer: No Cardiac Catheterization: Yes Cardiovascular Problems: Yes High Cholesterol: Yes Chemotherapy: No Chest Pain: Yes (this admit) Congestive Heart Failure: No Diabetes: No Diminished Hearing: No Endocrine: No Gastrointestinal Disorders: No Genitourinary: Yes (cyst on r kidney) Heparin Induced Thrombocytopen: No Hypertension: Yes Musculoskeletal: Yes (arthritis, back fusions l2-l5) Neurologic: No Reproductive: No Respiratory: Yes Myocardial Infarction: Yes (2004) Radiation Therapy: No Sleep Apnea: Yes Past Surgical History Cardiac Surgery: Yes (stents x 4 in 2004) Coronary Artery Bypass Graft: No Coronary Stent: Yes (X 4 2004) Social History Alcohol Use: No Tobacco Use: No (QUIT 1989) Substance Use: No Allergies-Medications (Allergen,Severity, Reaction): Coded Allergies: caffeine (Unverified Allergy, Mild, 10/23/16) povidone-iodine (Unverified Allergy, Mild, 10/23/16) aspirin (Verified Adverse Reaction, Mild, stomach upset, 10/23/16) calcium carbonate (Verified Adverse Reaction, Mild, stomach upset, 10/23/16 ) Reported Meds & Prescriptions Reported Meds & Active Scripts Active Clopidogrel (Clopidogrel Bisulfate) 75 Mg Tab 75 Mg PO DAILY Metoprolol Tartrate 25 Mg Tab 25 Mg PO BID Reported Hydrocodone-Acetaminophen 7.5-325 mg Tab 1 Tab PO Q4H PRN Gabapentin 300 Mg Cap 300 Mg PO BID Restoril (Temazepam) 15 Mg Cap 15 Mg PO HS Finasteride 5 Mg Tab 5 Mg PO 2XWEEK Do not crush. B12 (Cyanocobalamin) 1,000 Mcg Tab 1 Tab PO DAILY Aspirin 81 Mg Chew 81 Mg CHEW DAILY Coq-10 (Coenzyme Q10 (Ubidecarenone)) 400 Mg Cap 200 Mg PO DAILY Multiple Vitamin 1 Tab 1 Tab PO DAILY Hydrocodone-Acetaminophen 7.5-325 mg Tab 1 Tab PO Q4H PRN Gabapentin 300 Mg Cap 300 Mg PO BID Furosemide 20 Mg Tab 20-40 Mg PO DIRECTED Metaxalone 800 Mg Tab 800 Mg PO DAILY PRN Temazepam 15 Mg Cap 15 Mg PO HS PRN Welchol (Colesevelam HCl) 625 Mg Tab 3,750 Mg PO DAILY Diltiazem ER 24 HR 180 Mg Mihir 180 Mg PO DAILY Enalapril (Enalapril Maleate) 5 Mg Tab 5 Mg PO DAILY Finasteride 5 Mg Tab 5 Mg PO DIRECTED Do not crush. Review of Systems Except as stated in HPI: all other systems reviewed are Neg Physical Exam Narrative GENERAL: SKIN: Warm and dry. HEAD: Atraumatic. Normocephalic. EYES: Pupils equal and round. No scleral icterus. No injection or drainage. ENT: No nasal bleeding or discharge. Mucous membranes pink and moist. Tongue is midline. No uvula deviation NECK: Trachea midline. No JVD. CARDIOVASCULAR: Regular rate and rhythm. No murmurs, S3, S4. RESPIRATORY: No accessory muscle use. Clear to auscultation. Breath sounds equal bilaterally. GASTROINTESTINAL: Abdomen soft, non-tender, nondistended. Hepatic and splenic margins not palpable. MUSCULOSKELETAL: Extremities without clubbing, cyanosis, or edema. No obvious deformities. Full range of motion of the upper and lower extremities bilaterally. 2+ pulses bilaterally. NEUROLOGICAL: Awake and alert. No obvious cranial nerve deficits. Motor grossly within normal limits. Five out of 5 muscle strength in the arms and legs. Normal speech. PSYCHIATRIC: Appropriate mood and affect; insight and judgment normal. Data Data Last Documented VS Vital Signs Date Time Temp Pulse Resp B/P (MAP) Pulse Ox O2 Delivery O2 Flow Rate FiO2 8/25/17 19:17 16 10/27/16 19:13 69 98/57 (71) 96 Room Air 10/27/16 17:19 97.8 Orders Orders Electrocardiogram (10/27/16 17:24) Complete Blood Count With Diff (10/27/16 17:24) Basic Metabolic Panel (Bmp) (10/27/16 17:24) Ckmb (Isoenzyme) Profile (10/27/16 17:24) Troponin I (10/27/16 17:24) Chest, Pa & Lat (10/27/16 17:24) Coag Profile (10/27/16 18:27) Nitroglycerin Sl (Nitrostat Sl) (10/27/16 18:30) Aspirin (Aspirin) (10/27/16 18:30) Heparin Inj (Heparin Inj) (10/27/16 19:30) Heparin Inj (Heparin Inj) (10/28/16 01:30) Heparin Inj (Heparin Inj) (10/28/16 01:30) Heparin-D5w 25,000 U/250 Ml (Heparin-D5w (10/27/16 19:28) Act Partial Throm Time (Ptt) (10/27/16 19:28) Prothrombin Time / Inr (Pt) (10/27/16 19:28) Cbc No Diff, Includes Plts (10/27/16 19:28) Cbc No Diff, Includes Plts (10/30/16 06:00) Act Partial Throm Time (Ptt) (10/28/16 02:28) Occult Blood (Hemoccult) Stool (10/27/16 19:28) Admit Order (Ed Use Only) (10/27/16 19:28) Consult Cardiology (10/27/16 ) Labs Laboratory Tests Test 10/27/16 18:04 10/27/16 18:50 White Blood Count 8.3 TH/MM3 Red Blood Count 4.92 MIL/MM3 Hemoglobin 14.5 GM/DL Hematocrit 43.4 % Mean Corpuscular Volume 88.3 FL Mean Corpuscular Hemoglobin 29.6 PG Mean Corpuscular Hemoglobin Concent 33.5 % Red Cell Distribution Width 13.6 % Platelet Count 211 TH/MM3 Mean Platelet Volume 7.9 FL Neutrophils (%) (Auto) 68.0 % Lymphocytes (%) (Auto) 22.1 % Monocytes (%) (Auto) 8.3 % Eosinophils (%) (Auto) 1.1 % Basophils (%) (Auto) 0.5 % Neutrophils # (Auto) 5.6 TH/MM3 Lymphocytes # (Auto) 1.8 TH/MM3 Monocytes # (Auto) 0.7 TH/MM3 Eosinophils # (Auto) 0.1 TH/MM3 Basophils # (Auto) 0.0 TH/MM3 CBC Comment DIFF FINAL Differential Comment Blood Urea Nitrogen 20 MG/DL Creatinine 0.97 MG/DL Random Glucose 91 MG/DL Calcium Level 7.7 MG/DL Sodium Level 139 MEQ/L Potassium Level 4.2 MEQ/L Chloride Level 108 MEQ/L Carbon Dioxide Level 22.8 MEQ/L Anion Gap 8 MEQ/L Estimat Glomerular Filtration Rate 77 ML/MIN Total Creatine Kinase 90 U/L Troponin I 0.04 NG/ML Prothrombin Time 12.0 SEC Prothromb Time International Ratio 1.1 RATIO Activated Partial Thromboplast Time 24.3 SEC MDM Medical Decision Making Medical Screen Exam Complete: Yes Emergency Medical Condition: Yes Medical Record Reviewed: Yes Interpretation(s) CBC & BMP Diagram 10/27/16 18:04 Calcium Level 7.7 L Troponin of 0.04 CK-MB within normal limits. EKG shows sinus rhythm with no sign of acute ischemia or arrhythmia read by me and attending. RBBB noted. Last Impressions Chest X-Ray 10/27/16 1724 Signed Impressions: Service Date/Time: Thursday, October 27, 2016 17:41 - CONCLUSION: No evidence of acute cardiopulmonary disease. Alfredo Bowden MD Differential Diagnosis Chest pain versus ACS versus unstable angina Narrative Course 71-year-old male that presents to the ED for evaluation of chest pain. Patient was properly examined and was found to have signs and symptoms of unclear etiology. Patient does have a heart In a Splint. Patient Apparently Was Told to Come Here by Dr. Cantu Office. Labs and Imaging Were Ordered and Were Essentially Unremarkable. Patient states that the pain feels similar to his previous pain before he would had the stent. Dr Garcia recommends consult to cardiology. Case was discussed with Dr. SWANSON who is on-call for Dr. Colin who recommends that we admit to medicine, started on heparin he will assess to see what can be done for this. Case discussed with Dr. Greco who agrees to admission. Case discussed with patient who is in agreement with plan. Diagnosis Primary Impression: Unstable angina Admitting Information Admitting Physician Requests: Admit Condition: Stable Marino Berry Oct 27, 2016 19:49
--- NOTE | 2016-10-27 19:58 | HHI.HP ---
[facility] Lea Whitley, DO Admission Diagnosis unstable angina, recent stent Diagnoses: (1) Unstable angina Diagnosis: Principal (2) Hypotension Diagnosis: Principal (3) Dehydration Diagnosis: Principal Travel History International Travel<30 Days: No Contact w/Intl Traveler <30 Da: No Traveled to Known Affected Are: No History of Present Illness This is a 71-year-old male with a PMH of HTN, Hyperlipidemia and CAD who presented to the ER with complaints of chest pain starting earlier today. Recent admit 10/25-10/26/16 for similar complaints, s/p Cardiac Cath by Dr. Fairchild 10/25/16 w/ high grade RCA stenosis s/p Stent, d/c'd on ASA/Plavix w/ plans for follow up in 1-2 wks. States today developed chest pain similar to pain from previous admission. S/p NTG w/ significant improvement in pain. On arrival, BP 136/68, HR 64, O2 sat 97% on RA, Afebrile. CBC unremarkable. GFR 77. Troponin 0.04. CXR with no acute findings. Dr. Narvaez consulted by ER physician, recommended Heparin gtt and will eval in am. Currently chest pain free. Review of Systems Except as stated in HPI: all other systems reviewed are Neg ROS: 14 point review of systems otherwise negative. Past Family Social History Past Medical History PMH: HTN, Hyperlipidemia and CAD Past Surgical History PAST SURGICAL HISTORY: Cardiac Stent Allergies: Coded Allergies: acetaminophen (Unverified Allergy, Mild, 10/23/16) caffeine (Unverified Allergy, Mild, 10/23/16) povidone-iodine (Unverified Allergy, Mild, 10/23/16) aspirin (Verified Adverse Reaction, Mild, stomach upset, 10/23/16) calcium carbonate (Verified Adverse Reaction, Mild, stomach upset, 10/23/16 ) Family History PAST FAMILY HISTORY: Reviewed. No h/o DM or CAD Social History PAST SOCIAL HISTORY: Negative for alcohol, tobacco or drugs. Physical Exam Vital Signs Vital Signs Date Time Temp Pulse Resp B/P (MAP) Pulse Ox O2 Delivery O2 Flow Rate FiO2 10/27/16 19:17 16 10/27/16 19:13 69 16 98/57 (71) 96 Room Air 10/27/16 18:49 59 16 103/58 (73) 97 10/27/16 18:02 60 15 95 10/27/16 17:19 97.8 64 15 136/68 (90) 97 Physical Exam PE: GENERAL: Very pleasant middle-aged white male in no acute distress. at bedside. HEENT: PERRLA, EOMI. No scleral icterus or conjunctival pallor. No lid lag or facial droop. CARDIOVASCULAR: Regular rate and rhythm. No obvious murmurs to auscultation. No chest tenderness to palpation. RESPIRATORY: No obvious rhonchi or wheezing. Clear to auscultation. Breath sounds equal bilaterally. GASTROINTESTINAL: Abdomen soft, non-tender, nondistended. BS normal. MUSCULOSKELETAL: Extremities without clubbing, cyanosis, or edema. No obvious deformities. NEUROLOGICAL: Awake, alert and oriented x4. No focal neurologic deficits. Moving both upper and lower extremities spontaneously. Laboratory Laboratory Tests Test 10/27/16 18:04 10/27/16 18:50 10/27/16 19:40 White Blood Count 8.3 Red Blood Count 4.92 Hemoglobin 14.5 Hematocrit 43.4 Mean Corpuscular Volume 88.3 Mean Corpuscular Hemoglobin 29.6 Mean Corpuscular Hemoglobin Concent 33.5 Red Cell Distribution Width 13.6 Platelet Count 211 Mean Platelet Volume 7.9 Neutrophils (%) (Auto) 68.0 Lymphocytes (%) (Auto) 22.1 Monocytes (%) (Auto) 8.3 Eosinophils (%) (Auto) 1.1 Basophils (%) (Auto) 0.5 Neutrophils # (Auto) 5.6 Lymphocytes # (Auto) 1.8 Monocytes # (Auto) 0.7 Eosinophils # (Auto) 0.1 Basophils # (Auto) 0.0 CBC Comment DIFF FINAL Differential Comment Blood Urea Nitrogen 20 Creatinine 0.97 Random Glucose 91 Calcium Level 7.7 Sodium Level 139 Potassium Level 4.2 Chloride Level 108 Carbon Dioxide Level 22.8 Anion Gap 8 Estimat Glomerular Filtration Rate 77 Total Creatine Kinase 90 Troponin I 0.04 Prothrombin Time 12.0 Prothromb Time International Ratio 1.1 Activated Partial Thromboplast Time 24.3 Result Diagram: 10/27/16180310/27/161803 Caprini VTE Risk Assessment Caprini VTE Risk Assessment: Mod/High Risk (score >= 2) Caprini Risk Assessment Model Point Value = 1 Point Value = 2 Point Value = 3 Point Value = 5 Age 41-60 Minor surgery BMI > 25 kg/m2 Swollen legs Varicose veins or History of unexplained or recurrent spontaneous Oral contraceptives or hormone replacement Sepsis (< 1 month) Serious lung disease, including pneumonia (< 1 month) Abnormal pulmonary function Acute myocardial infarction Congestive heart failure (< 1 month) History of inflammatory bowel disease Medical patient at bed rest Age 61-74 Arthroscopic surgery Major open surgery (> 45 min) Laparoscopic surgery (> 45 min) Malignancy Confined to bed (> 72 hours) Immobilizing plaster cast Central venous access Age >= 75 History of VTE Family history of VTE Factor V Leiden Prothrombin [id number] Lupus anticoagulant Anticardiolipin antibodies Elevated serum homocysteine Heparin-induced thrombocytopenia Other congenital or acquired thrombophilia Stroke (< 1 month) Elective arthroplasty Hip, pelvis, or leg fracture Acute spinal cord injury (< 1 month) Prophylaxis Regimen Total Risk Factor Score Risk Level Prophylaxis Regimen 0-1 Low Early ambulation 2 Moderate Order ONE of the following: *Sequential Compression Device (SCD) *Heparin 5000 units SQ BID 3-4 Higher Order ONE of the following medications: *Heparin 5000 units SQ TID *Enoxaparin/Lovenox 40 mg SQ daily (WT < 150 kg, CrCl > 30 mL/min) *Enoxaparin/Lovenox 30 mg SQ daily (WT < 150 kg, CrCl > 10-29 mL/min) *Enoxaparin/Lovenox 30 mg SQ BID (WT < 150 kg, CrCl > 30 mL/min) AND/OR *Sequential Compression Device (SCD) 5 or more Highest Order ONE of the following medications: *Heparin 5000 units SQ TID (Preferred with Epidurals) *Enoxaparin/Lovenox 40 mg SQ daily (WT < 150 kg, CrCl > 30 mL/min) *Enoxaparin/Lovenox 30 mg SQ daily (WT < 150 kg, CrCl > 10-29 mL/min) *Enoxaparin/Lovenox 30 mg SQ BID (WT < 150 kg, CrCl > 30 mL/min) AND *Sequential Compression Device (SCD) Assessment and Plan Problem List: (1) Unstable angina ICD Code: I20.0 - Unstable angina Status: Acute (2) Hypotension ICD Code: I95.9 - Hypotension, unspecified (3) Dehydration ICD Code: E86.0 - Dehydration Assessment and Plan A/P: 1. Unstable Angina: c/o acute onset of chest pain, recent admit 10/25-10/26/16 for similar complaints, s/p Cardiac Cath by Dr. Fairchild w/ high grade RCA stenosis, s/p Stent. D/c'd on ASA/Plavix. Follows w/ Dr. Fairchild as outpatient , Dr. Narvaez consulted by ER physician, recommended Heparin gtt w/ eval in am. Currently chest pain free. NTG/Morphine prn. Resume home medications. CXR w / no acute findings, images reviewed by me. 2. Hypotension: Transient. BP 98/57, HR 69 while in ER, IVF for hydration, monitor BP. 3. Dehydration: GFR 77, BUN 20, Creatinine normal. IVR for hydration, repeat labs in am. 4. DVT Prophylaxis: Heparin gtt 5. Social work for d/c planning as needed. 6. Case discussed w/ ER physician at length. Physician Certification 2 Midnight Certification Type: Admission for Inpatient Services Order for Inpatient Services The services are ordered in accordance with Medicare regulations or non- Medicare payer requirements, as applicable. In the case of services not specified as inpatient-only, they are appropriately provided as inpatient services in accordance with the 2-midnight benchmark. Estimated LOS (days): 2 days is the estimated time the patient will need to remain in the hospital, assuming treatment plan goals are met and no additional complications. Post-Hospital Plan: Home Bri Greco MD Oct 27, 2016 19:58
[2016-10-27] MEDS ORDERED: MORPHINE SULFATE 4 MG/ML INJ IV PRN (20:00)
[2016-10-27] MEDS ORDERED: NITROGLYCERIN 2% OINT 1 GM PACKET TOPICAL PRN (20:00)
[2016-10-27] MEDS ORDERED: MAGNESIUM HYDROXIDE SUSP 30 ML CUP PO PRN (20:00)
[2016-10-27] MEDS ORDERED: SENNOSIDES 8.6 MG TAB PO PRN (20:00)
[2016-10-27] MEDS ORDERED: SODIUM CHLORIDE 0.9% FLUSH 10 ML FLUSH IV FLUSH PRN (20:00)
[2016-10-27] MEDS ORDERED: BISACODYL 10 MG SUPP RECTAL PRN (20:00)
[2016-10-27] MEDS ORDERED: ONDANSETRON HCL 4 MG/2 ML VIAL IVP PRN (20:00)
[2016-10-27] MEDS ORDERED: LACTULOSE SYRUP 20 GM/30 ML CUP PO PRN (20:00)
[2016-10-27 20:10] LABS: HEMATOCRIT 43.2 % (39.0-51.0); MEAN CELL VOLUME 87.7 FL (80.0-100.0); MEAN CORPUSCULAR HEMOGLOBIN 28.9 PG (27.0-34.0); MEAN CORPUSCULAR HGB CONC 32.9 % (32.0-36.0); PLATELET COUNT 222 TH/MM3 (150-450); RED BLOOD COUNT 4.92 MIL/MM3 (4.50-5.90); RED CELL DISTRIBUTION WIDTH 13.4 % (11.6-17.2); REVIEW FLAG FINAL; WHITE BLOOD COUNT 8.7 TH/MM3 (4.0-11.0)
[2016-10-27 20:14] LABS: APTT (PATIENT) 25.4 SEC (24.3-30.1); INTERNATIONAL NORMALIZED RATIO 1.1 RATIO; PROTHROMBIN TIME - PATIENT 12.3 SEC (9.8-11.6)
[2016-10-27] MEDS: HEPARIN-D5W 25,000 U/250 ML 250 ML IV PRN (20:41)
[2016-10-27 22:00] VITALS: BP 109/64; PULSE 58; PULSE 60; RESP 20; TEMP 98.5; O2SAT 97
[2016-10-27 23:00] VITALS: PULSE 62
[2016-10-28] VITALS (15 sets, daily range): BP systolic 98–122; BP diastolic 54–70; PULSE 52–76; RESP 16–20; TEMP 97.9–98.6; O2SAT 94–98
[2016-10-28] MEDS ORDERED: HEPARIN SODIUM - IV 10,000 UNITS/10 ML VIAL IV PRN (01:30)
[2016-10-28] MEDS: HEPARIN SODIUM - IV 10,000 UNITS/10 ML VIAL IV PRN ×2 (03:45→21:20)
[2016-10-28 06:21] LABS: AUTOMATED NEUTROPHIL # 3.6 TH/MM3 (1.8-7.7); BASOPHIL # 0.1 TH/MM3 (0-0.2); BASOPHIL % 0.9 % (0.0-2.0); EOSINOPHIL # 0.1 TH/MM3 (0-0.4); EOSINOPHIL % 1.6 % (0.0-4.0); HEMATOCRIT 42.1 % (39.0-51.0); HEMO FLAGS DIFF FINAL; LYMPH % 35.7 % (9.0-44.0); LYMPHOCYTE # 2.4 TH/MM3 (1.0-4.8); MEAN CELL VOLUME 87.8 FL (80.0-100.0); MEAN CORPUSCULAR HEMOGLOBIN 29.3 PG (27.0-34.0); MEAN CORPUSCULAR HGB CONC 33.4 % (32.0-36.0); MONO % 9.2 % (0.0-8.0); NEUT % 52.6 % (16.0-70.0); PLATELET COUNT 185 TH/MM3 (150-450); RED CELL DISTRIBUTION WIDTH 13.4 % (11.6-17.2); WHITE BLOOD COUNT 6.8 TH/MM3 (4.0-11.0)
[2016-10-28 07:07] LABS: ANION GAP 9 MEQ/L (5-15); AST (GOT) 22 U/L (15-37); BICARBONATE 24.4 MEQ/L (21.0-32.0); BLOOD UREA NITROGEN 14 MG/DL (7-18); CHLORIDE 106 MEQ/L (98-107); GLOMERULAR FILTRATION RATE 96 ML/MIN (>89); POTASSIUM 3.7 MEQ/L (3.5-5.1); SODIUM (NA) 139 MEQ/L (136-145)
[2016-10-28 07:08] LABS: ALT (GPT) 33 U/L (12-78)
[2016-10-28 07:11] LABS: ALKALINE PHOSPHATASE 46 U/L (45-117); TOTAL BILIRUBIN ADULT 0.4 MG/DL (0.2-1.0)
[2016-10-28] MEDS: SODIUM CHLORIDE 0.9% FLUSH 10 ML FLUSH IV FLUSH SCH ×2 (09:00→20:56)
[2016-10-28] MEDS: DOCUSATE SODIUM 50 MG/SENNA 8.6 MG TAB PO SCH ×2 (09:00→20:54)
[2016-10-28] MEDS ORDERED: METOPROLOL TARTRATE 25 MG TAB PO SCH (11:00)
[2016-10-28] MEDS ORDERED: DILTIAZEM-CD 180 MG CAP ER PO SCH (11:00)
[2016-10-28] MEDS: DILTIAZEM-CD 180 MG CAP ER PO SCH (11:14)
[2016-10-28] MEDS: METOPROLOL TARTRATE 25 MG TAB PO SCH ×2 (11:17→20:52)
[2016-10-28] MEDS: CLOPIDOGREL 75 MG TAB PO SCH (11:17)
[2016-10-28] MEDS: ASPIRIN EC 81 MG TABEC PO SCH (11:17)
--- NOTE | 2016-10-28 11:17 | MB ---
cc: JG SWANSON M.D., HUMAYUN A. M.D. DATE OF CONSULTATION: 10/28/2016. HISTORY OF PRESENT ILLNESS: Mr. Camejo is a pleasant 71-year-old gentleman with history of hypertension, hyperlipidemia and family history of coronary artery disease. No history of diabetes. He used to smoke but stopped in 1989. He has had an inferior wall myocardial infarction in 2004 for which the right coronary artery was stented at that time. He came a few days ago with recurrent angina and had a cardiac catheterization and was found to have a 90% distal right coronary artery disease which was stented. He comes back a day and a half later with similar chest pressure with radiation between his shoulders associated with shortness of breath but no nausea, diaphoresis or palpitations. These symptoms started about three to four weeks ago and increased in the last seven days. He got the stent on the and felt better for 24 hours but then he had recurrent discomfort and came back. He denies palpitations, dizziness or syncope. He denies orthopnea or paroxysmal nocturnal dyspnea. He has ankle swelling for which he treats with intermittent Lasix doses. ALLERGIES: NO KNOWN ALLERGIES BUT HE HAS SIDE EFFECTS TO STATINS. FAMILY HISTORY: Positive for coronary artery disease and cancer and hypertension. Negative for diabetes but he does have family history of diabetes in the grandparents and extended family. SOCIAL HISTORY: He used to stop but smoked in 1989. He denies ethyl alcohol abuse or recreational drug abuse however he drinks about two alcoholic drinks three times a week. He is and lives with his . PAST MEDICAL HISTORY / PAST SURGICAL HISTORY: As mentioned above. 1. He has had multiple orthopedic surgeries with fusion of L2-5. 2. He is status post left knee arthroscopic surgery. 3. Right shoulder arthroscopic surgery. 4. Bilateral carpal tunnel surgeries in the past. 5. Myocardial infarction inferior wall in 2004, stented as mentioned. 6. He had another catheterization in 2008 that was "good". REVIEW OF SYSTEMS: A twelve-point system review was unremarkable except for what is mentioned in the history of present illness. PHYSICAL EXAMINATION: GENERAL: A 71-year-old gentleman lying in bed in no apparent distress. He is alert and oriented times three and answers questions appropriately. VITAL SIGNS: Blood pressure is 120/60 mmHg, pulse of 64 beats per minute and regular, respirations 14 per minute, afebrile. HEAD, EYES, EARS, NOSE, THROAT: Head is normocephalic. Pupils are equal and reactive. Throat is within normal limits. NECK: The neck is supple and thick. No carotid bruits. No thyromegaly. No jugular venous distention noted. LUNGS: Clear to auscultation and percussion. CARDIOVASCULAR: S1 and S2 are distant and normal. No murmurs, rubs or gallops heard. ABDOMEN: Obese but lax and nontender. Normoactive bowel sounds. No organomegaly. No masses felt. EXTREMITIES: No clubbing, cyanosis or edema. Pulses 2+ bilaterally. Dorsalis pedis and posterior tibial arteries are 1 to 2+ bilaterally. No bruit noted. RECTAL: Exam deferred. NEUROLOGIC: Grossly intact with no focal deficits. EKGS: EKG shows sinus rhythm, right bundle-branch block and old inferior infarction not changed from his prior EKG compared to last week and to the prior EKGs as well. LABORATORY data: Shows a white count of 6.8, hemoglobin of 14.1 and a platelet count of 185,000. BUN of 14, creatinine 0.8. Troponin-I x3 so far within normal limits. CPK initially was normal. Lipid panel on the showed an LDL of 88, HDL of 44 and triglycerides of 163 and he was old taking only Welchol because he "cannot tolerate statins". ASSESSMENT AND RECOMMENDATIONS: 1. Recurrent chest discomfort with history of coronary artery disease / inferior wall myocardial infarction / recent right coronary artery stenting. He is on IV heparin now and nitro paste will be started so will be the Diltiazem and metoprolol. He has had recurrent pains that were "slight" and atypical and for which repeat EKG will be performed. Will keep monitoring him with cardiac markers and EKGs clinically over the weekend. Otherwise, further evaluation will be up to Dr. Pro covering for Dr. Fairchild Sunday morning. This was discussed with the patient and he is in agreement. In the meantime, will resume his beta blockers, his Diltiazem and nitro paste and aspirin and Plavix. He is to resume Welchol as well. Further recommendations will follow. I thank you for the consultation. MD GABRIELLE Crum/ROBBIN /10:48 AM /11:00 AM
[2016-10-28] MEDS: NITROGLYCERIN 2% OINT 1 GM PACKET TOPICAL SCH ×3 (11:30→23:30)
[2016-10-28 12:04] LABS: APTT (PATIENT) 38.1 SEC (24.3-30.1)
[2016-10-28] MEDS: SODIUM CHLOR 0.9% 1000 ML INJ 1,000 ML IV SCH ×2 (12:59→20:54)
[2016-10-28] MEDS ORDERED: COLESEVELAM HCL 625 MG TAB PO SCH (13:00)
[2016-10-28] MEDS: FAMOTIDINE 20 MG TAB PO SCH ×2 (13:01→20:51)
[2016-10-28] MEDS ORDERED: METAXALONE 800 MG TAB PO PRN (13:15)
--- NOTE | 2016-10-28 13:29 | HHI.PR ---
Subjective Remarks recently discharge day after discharge steady chest pain at rest readmitted last evening- now chest pain free on Heparin drip and Nitro paste no nausea or vomiting, no diaphoresis Objective Vitals Vital Signs Date Time Temp Pulse Resp B/P (MAP) Pulse Ox O2 Delivery O2 Flow Rate FiO2 10/28/16 11:00 98.6 65 16 122/70 (87) 97 10/28/16 07:15 97.9 59 16 115/56 (75) 98 10/28/16 06:00 76 10/28/16 05:00 56 10/28/16 04:00 66 10/28/16 04:00 98.0 55 20 115/56 (75) 98 10/28/16 03:00 52 10/28/16 02:00 52 10/28/16 01:00 52 10/28/16 00:00 56 10/28/16 00:00 98.4 61 20 109/62 (78) 96 10/27/16 23:00 62 10/27/16 22:00 98.5 60 20 109/64 (79) 97 10/27/16 22:00 58 10/27/16 21:13 10/27/16 19:17 16 10/27/16 19:13 69 16 98/57 (71) 96 Room Air 10/27/16 18:49 59 16 103/58 (73) 97 10/27/16 18:02 60 15 95 10/27/16 17:19 97.8 64 15 136/68 (90) 97 I/O 10/27/16 10/27/16 10/27/16 10/28/16 10/28/16 10/28/16 07:00 15:00 23:00 07:00 15:00 23:00 Intake Total 480 ml Balance 480 ml Intake Oral 480 ml # Voids 2 Result Diagram: 10/28/16 0416 10/28/166 Imaging Last Impressions Chest X-Ray 10/27/16 1724 Signed Impressions: Service Date/Time: Thursday, October 27, 2016 17:41 - CONCLUSION: No evidence of acute cardiopulmonary disease. Alfredo Bowden MD Objective Remarks awake and alert, NAD anicteric lungs clear regular rhythm abdomen soft, nontender extremities no edema neuro exam - non focal A/P Problem List: (1) Unstable angina ICD Code: I20.0 - Unstable angina Status: Acute (2) Hypotension ICD Code: I95.9 - Hypotension, unspecified (3) Dehydration ICD Code: E86.0 - Dehydration Assessment and Plan 71 years old known CAD recent stent of RCA 1. Unstable Angina: troponins negative. EKG no acute changes. Started on Heparin drip. Nitrol paste added. Cardiology ff- seen by Dr. Jacobs continue ASA/Plavix, BB/CCB 2. Hypotension Transient on admission. continue fluids- decrease rate 3. Pre renal midl renal insufficiency- continue IVF- rate decrease 4. DVT Prophylaxis: Heparin gtt d/w patient Michael Rasmussen MD Oct 28, 2016 13:29
[2016-10-28] MEDS: ALPRAZolam 0.25 MG TAB PO SCH ×2 (13:41→20:51)
[2016-10-28] MEDS: GABAPENTIN 300 MG CAP PO SCH ×2 (14:06→20:51)
[2016-10-28] MEDS ORDERED: FINASTERIDE 5 MG TAB PO SCH (15:00)
--- NOTE | 2016-10-28 15:17 | EKG ---
Date Performed: 10/28/2016 Time Performed: 10:53:08 PTAGE: 71 years EKG: Sinus rhythm with 1st degree A-V block. Left axis deviation RBBB with left anterior fascicular block Inferior inf arct - age undetermined Low QRS voltages in precordial leads Abnormal ECG PREVIOUS TRACING : 10/27/2016 17.59 Compared to prior tracing no significant change DOCTOR: Anderson Pro Interpretating Date/Time 10/28/2016 15:15:48
[2016-10-28] MEDS: ACETAMINOPHEN 325 MG TAB PO PRN (18:07)
[2016-10-28] MEDS: COLESEVELAM HCL 625 MG TAB PO SCH (18:08)
[2016-10-28] MEDS: HEPARIN-D5W 25,000 U/250 ML 250 ML IV PRN (18:27)
--- NOTE | 2016-10-28 18:29 | EKG ---
Date Performed: 10/27/2016 Time Performed: 17:59:47 PTAGE: 71 years EKG: Sinus rhythm WITH FIRST DEGREE AV BLOCK MARKED LEFT AXIS DEVIATION RIGHT BUNDLE BRANCH BLOCK ABNORMAL ECG PREVIOUS TRACING : 10/27/2016 06.45 Compared to prior tracing no significant change DOCTOR: Anderson Pro Interpretating Date/Time 10/28/2016 18:29:00
[2016-10-28] MEDS: TEMAZEPAM 15 MG CAP PO PRN (20:51)
[2016-10-28 21:10] LABS: APTT (PATIENT) 32.3 SEC (24.3-30.1)
[2016-10-29] VITALS (27 sets, daily range): BP systolic 94–118; BP diastolic 47–68; PULSE 49–110; RESP 16–20; TEMP 97.9–98.7; O2SAT 92–98
[2016-10-29 05:26] LABS: APTT (PATIENT) 50.8 SEC (24.3-30.1)
[2016-10-29] MEDS: NITROGLYCERIN 2% OINT 1 GM PACKET TOPICAL SCH ×4 (05:30→20:53)
[2016-10-29] MEDS: DOCUSATE SODIUM 50 MG/SENNA 8.6 MG TAB PO SCH ×2 (09:00→20:54)
[2016-10-29] MEDS: SODIUM CHLORIDE 0.9% FLUSH 10 ML FLUSH IV FLUSH SCH ×2 (09:00→20:53)
[2016-10-29] MEDS: CYANOCOBALAMIN 1,000 MCG TAB PO SCH (09:24)
[2016-10-29] MEDS: FAMOTIDINE 20 MG TAB PO SCH ×2 (09:24→20:53)
[2016-10-29] MEDS: DILTIAZEM-CD 180 MG CAP ER PO SCH (09:24)
[2016-10-29] MEDS: ENALAPRIL MALEATE 5 MG TAB PO SCH (09:24)
[2016-10-29] MEDS: CLOPIDOGREL 75 MG TAB PO SCH (09:24)
[2016-10-29] MEDS: ALPRAZolam 0.25 MG TAB PO SCH ×2 (09:25→20:53)
[2016-10-29] MEDS: METOPROLOL TARTRATE 25 MG TAB PO SCH ×2 (09:25→20:53)
[2016-10-29] MEDS: ASPIRIN EC 81 MG TABEC PO SCH (09:25)
[2016-10-29] MEDS: GABAPENTIN 300 MG CAP PO SCH ×2 (09:25→20:53)
[2016-10-29] MEDS: COLESEVELAM HCL 625 MG TAB PO SCH ×3 (09:44→18:57)
--- NOTE | 2016-10-29 11:47 | EKG ---
Date Performed: 10/29/2016 Time Performed: 06:41:50 PTAGE: 71 years EKG: Sinus bradycardia with 1st degree A-V block Indeterminate axis Right bundle branch block Po ssible inferior infarct - age undetermined Low QRS voltages in precordial leads Abnormal ECG PREVIOUS TRACING : 10/28/2016 10.53 Compared to prior tracing no significant change DOCTOR: Anderson Pro Interpretating Date/Time 10/29/2016 11:47:02
[2016-10-29 13:04] LABS: APTT (PATIENT) 46.6 SEC (24.3-30.1)
[2016-10-29] MEDS: SODIUM CHLOR 0.9% 1000 ML INJ 1,000 ML IV SCH (13:55)
[2016-10-29] MEDS: HEPARIN-D5W 25,000 U/250 ML 250 ML IV PRN (14:00)
--- NOTE | 2016-10-29 15:39 | HHI.PR ---
Subjective Remarks no complains of chest discomfort ambulating around his room Objective Vitals Vital Signs Date Time Temp Pulse Resp B/P (MAP) Pulse Ox O2 Delivery O2 Flow Rate FiO2 10/29/16 11:00 97.9 58 16 94/49 (64) 97 10/29/16 07:30 57 20 118/68 (85) 98 10/29/16 06:28 50 10/29/16 05:20 52 10/29/16 04:18 50 10/29/16 03:10 50 10/29/16 03:10 97.9 53 18 96/49 (65) 96 10/29/16 02:22 49 10/29/16 01:15 50 10/29/16 00:52 50 10/29/16 00:12 98.0 52 18 94/61 (72) 92 10/28/16 23:15 53 10/28/16 22:00 61 10/28/16 21:00 56 10/28/16 20:01 98.2 59 16 100/54 (69) 94 10/28/16 19:00 66 I/O 10/28/16 10/28/16 10/28/16 10/29/16 10/29/16 10/29/16 07:00 15:00 23:00 07:00 15:00 23:00 Intake Total 480 ml 2422 ml 1104 ml Output Total 1660 ml 200 ml Balance 480 ml 762 ml 904 ml Intake Oral 480 ml 1720 ml 240 ml IV Total 702 ml 864 ml Output Urine Total 1660 ml 200 ml # Voids 2 1 # Bowel Movements 1 Result Diagram: 10/28/16 0416 10/28/16 0416 Imaging Last Impressions Chest X-Ray 10/27/164 Signed Impressions: Service Date/Time: Thursday, October 27, 2016 17:41 - CONCLUSION: No evidence of acute cardiopulmonary disease. Alfredo Bowden MD Objective Remarks awake and alert, NAD anicteric lungs clear regular rhythm abdomen soft, nontender extremities no edema right groin- previous cath site- no hematoma, superficial ecchymoses-healing, + + femoral pulses neuro exam - non focal A/P Problem List: (1) Unstable angina ICD Code: I20.0 - Unstable angina Status: Acute (2) Hypotension ICD Code: I95.9 - Hypotension, unspecified (3) Dehydration ICD Code: E86.0 - Dehydration Assessment and Plan 71 years old known CAD recent stent of RCA 1. Unstable Angina: troponins negative. EKG no acute changes. on Heparin drip. on Nitrol paste. Cardiology ff- - Dr quadrat will be ff tomorrow- keep NPO post midnightin the event that cardiology decides to cath him continue ASA/Plavix, BB/CCB/enalapril 5 mg daily 2. Hypotension Transient on admission. continue fluids- 3. Pre renal midl renal insufficiency- continue IVF-- renal functions improve 4. DVT Prophylaxis: Heparin gtt d/w patient Michael Rasmussen MD Oct 29, 2016 15:39
[2016-10-29] MEDS: TEMAZEPAM 15 MG CAP PO PRN (20:53)
[2016-10-30] VITALS (24 sets, daily range): BP systolic 90–129; BP diastolic 56–76; PULSE 49–89; RESP 16–20; TEMP 97–98.6; O2SAT 96–97
[2016-10-30] MEDS: SODIUM CHLOR 0.9% 1000 ML INJ 1,000 ML IV SCH ×2 (04:17→21:09)
[2016-10-30] MEDS: NITROGLYCERIN 2% OINT 1 GM PACKET TOPICAL SCH ×3 (04:54→21:04)
[2016-10-30 06:47] LABS: APTT (PATIENT) 49.9 SEC (24.3-30.1)
[2016-10-30 06:48] LABS: HEMATOCRIT 39.9 % (39.0-51.0); MEAN CELL VOLUME 88.2 FL (80.0-100.0); MEAN CORPUSCULAR HEMOGLOBIN 29.6 PG (27.0-34.0); MEAN CORPUSCULAR HGB CONC 33.6 % (32.0-36.0); PLATELET COUNT 191 TH/MM3 (150-450); RED BLOOD COUNT 4.52 MIL/MM3 (4.50-5.90); RED CELL DISTRIBUTION WIDTH 13.4 % (11.6-17.2); REVIEW FLAG FINAL; WHITE BLOOD COUNT 6.9 TH/MM3 (4.0-11.0)
[2016-10-30] MEDS: DILTIAZEM-CD 180 MG CAP ER PO SCH (08:45)
[2016-10-30] MEDS: CYANOCOBALAMIN 1,000 MCG TAB PO SCH (08:45)
[2016-10-30] MEDS: DOCUSATE SODIUM 50 MG/SENNA 8.6 MG TAB PO SCH ×2 (08:45→21:00)
[2016-10-30] MEDS: METOPROLOL TARTRATE 25 MG TAB PO SCH ×2 (08:45→21:05)
[2016-10-30] MEDS: SODIUM CHLORIDE 0.9% FLUSH 10 ML FLUSH IV FLUSH SCH ×2 (08:45→21:00)
[2016-10-30] MEDS: ASPIRIN EC 81 MG TABEC PO SCH (08:46)
[2016-10-30] MEDS: ALPRAZolam 0.25 MG TAB PO SCH ×2 (08:46→21:06)
[2016-10-30] MEDS: GABAPENTIN 300 MG CAP PO SCH ×2 (08:46→21:05)
[2016-10-30] MEDS: ENALAPRIL MALEATE 5 MG TAB PO SCH (08:46)
[2016-10-30] MEDS: FAMOTIDINE 20 MG TAB PO SCH ×2 (08:46→21:06)
[2016-10-30] MEDS: CLOPIDOGREL 75 MG TAB PO SCH (08:46)
[2016-10-30] MEDS: HEPARIN-D5W 25,000 U/250 ML 250 ML IV PRN (08:52)
[2016-10-30] MEDS: COLESEVELAM HCL 625 MG TAB PO SCH ×3 (10:51→18:00)
--- NOTE | 2016-10-30 10:56 | HHI.PR ---
Subjective Remarks Chest Pain has improved from time of admit, but is not fully resolved. Patient reports that his chest pain is still responding to Nitroglycerin. No new complaints. Objective Vital Signs Date Time Temp Pulse Resp B/P (MAP) Pulse Ox O2 Delivery O2 Flow Rate FiO2 10/30/16 10:00 54 10/30/16 09:00 56 10/30/16 08:00 74 10/30/16 08:00 98.4 56 20 105/64 (78) 97 10/30/16 07:00 56 10/30/16 06:37 49 10/30/16 05:38 77 10/30/16 04:09 50 10/30/16 03:36 53 10/30/16 03:20 97.9 56 16 90/56 (67) 96 10/30/16 02:31 52 10/30/16 01:35 50 10/30/16 00:24 49 10/29/16 23:42 53 10/29/16 23:20 97.9 62 16 96/63 (74) 95 10/29/16 22:00 56 10/29/16 21:00 56 10/29/16 20:00 74 10/29/16 19:20 60 10/29/16 19:20 98.0 58 18 100/60 (73) 97 10/29/16 18:00 64 10/29/16 17:00 58 10/29/16 16:00 58 10/29/16 15:00 56 10/29/16 15:00 98.7 56 20 99/47 (64) 97 10/29/16 14:00 62 10/29/16 13:00 54 10/29/16 12:00 52 10/29/16 11:00 110 10/29/16 11:00 97.9 58 16 94/49 (64) 97 I/O 10/29/16 10/29/16 10/29/16 10/30/16 10/30/16 10/30/16 07:00 15:00 23:00 07:00 15:00 23:00 Intake Total 1104 ml 2857 ml 1099 ml Output Total 200 ml 1900 ml 1350 ml Balance 904 ml 957 ml -251 ml Intake Oral 240 ml 1120 ml 240 ml IV Total 864 ml 1737 ml 859 ml Output Urine Total 200 ml 1900 ml 1350 ml # Voids 1 Result Diagram: 10/30/16 0440 10/28/16 0416 Objective Remarks GENERAL: NAD, A&Ox3 HEAD: Normocephalic. NECK: Supple, trachea midline. No lymphadenopathy. EYES: No scleral icterus. No injection or drainage. CARDIOVASCULAR: Regular rate and rhythm without murmurs, gallops, or rubs. RESPIRATORY: Breath sounds equal bilaterally. No accessory muscle use. GASTROINTESTINAL: Abdomen soft, non-tender, nondistended. MUSCULOSKELETAL: No cyanosis, or edema. SKIN: Warm and dry. NEURO: No focal neurological deficitis. A/P Problem List: (1) Unstable angina ICD Code: I20.0 - Unstable angina Status: Acute Assessment and Plan Assessment and Plan 71 year-old male with coronary artery disease and a recent RCA stent admitted secondary to unstable angina Unstable angina Negative troponins EKG negative Continue heparin drip Continue nitrogen paste Cardiology following Continue aspirin, Plavix, beta piotr, calcium channel piotr Hypotension Resolved Renal insufficiency Resolved DVT prophylaxis Heparin drip Herb Sierra MD Oct 30, 2016 10:56
[2016-10-30] MEDS ORDERED: IOHEXOL 350 MG/ML 50 ML BTL (for Cath Lab) OTHER ONE (14:23)
[2016-10-30] MEDS ORDERED: IOHEXOL 350 MG/ML 100 ML BTL (for Cath Lab) OTHER ONE (14:23)
[2016-10-30] MEDS ORDERED: HEPARIN-NS/PF INJ 1,000 ML ONE (15:53)
[2016-10-30] MEDS ORDERED: NITROGLYCERIN INJ 5 ML ONE (15:54)
[2016-10-30] MEDS ORDERED: HEPARIN SODIUM - IV 10,000 UNITS/10 ML VIAL ONE (15:54)
[2016-10-30] MEDS ORDERED: MIDAZOLAM HCL 2 MG/2 ML VIAL ONE ×2 (15:54→17:16)
[2016-10-30] MEDS ORDERED: methylPREDNISolone SOD SUCC 125 MG/2 ML VIAL ONE (16:25)
[2016-10-30] MEDS ORDERED: diphenhydrAMINE HCL 50 MG/ML VIAL ONE (16:25)
[2016-10-30] MEDS ORDERED: TICAGRELOR 90 MG TAB PO ONE (17:47)
[2016-10-30] MEDS ORDERED: NITROGLYCERIN 400 MCG/SPRAY 4.9 GM BOTTLE SL ONE (18:06)
--- NOTE | 2016-10-30 18:44 | CATHPROC ---
[employer] HIS Report Study Information Study Number Admission Scheduled Start Study Start [id number] Oct 27 2016 7:33PM 10/30/2016 Oct 30 2016 3:50PM [place] [facility] Cardiac Catheterization Admit Source Facility Department Emergency department [facility] - Assistant Professor Of Dietetics Physician and Clinical Staff Initial Anderson Kimble Slurry Mixer Beth Alves,SURINDERRN Slurry Mixer Nery Green,ALDAIR Recorder Reyna Ortiz,RT(R) Scrub Sofia Huynh,TOMI TECH2 Procedures Performed Procedure Location (Site) Vessel Name Angiogram LV LV Ventricle Coronary Angiograms LCA Left Coronary Coronary Angiograms RCA Right Coronary Drug Eluting Inflatio LAD Mid Left Coronary L Heart Cath PTCA LAD Mid Left Coronary Wire insertion Fem Art (left) Femoral Art Equipment Time Rotary Soil Stabilizer Description Size Mfg Part Number Used/Scraped WIRE, BALANCE MIDDLEWEIGHT [id number] 16:58 LUA CRITICAL CARE 190CM Used 190CM *[id number] WIRE, HI TORQUE ALLSTAR [id number] 17:12 LUA CRITICAL CARE 190CM Used 190CM *[id number] TRANSDUCER, TRUWAVE [id number] 16:11 RUFFIN LOZANO * Used W/STOCKCOCK *[id number] 17:06 BOSTON SCI[employer]IFIC BALLOON, 2.0 8MM EMERGE MR 2.0 8MM Used *[id number] 17:14 BOSTON SCI[employer]IFIC BALLOON, 2.5 12MM EMERGE MR 2.5 12MM Used *[id number] 17:33 [employer]ON SCI[employer]IFIC BALLOON, 2.5 12MM EMERGE MR 2.5 12MM Used *[id number] 534-548T *[id number] 534-520T *[id number] 534-552S *[id number] [id number] *[id number] 18:09 DAIG/[employer] [facility] MEDICAL ANGIOSEAL, FR6 VIP FR 6 Used *[id number] [id number] 16:11 MEDLINE INDUSTRIES PACK, CCL CUSTOM * Used *[id number] 16:11 MEDLINE PACER PEN, SKIN DUAL W/ RULER * Used *[id number] BALLOON, 2.75 X 20MM NC [id number] 17:51 MEDTRONIC 20MM Used EUPHORA *[id number] STENT, 2.5 12 RESOLUTE [id number] 17:55 MEDTRONIC 2.5 12 Used INTEGRITY RX *[id number] STENT, 2.75 12 RESOLUTE [id number] 17:43 MEDTRONIC 2.75 12 Used INTEGRITY RX *[id number] STENT, 2.75 18 RESOLUTE [id number] 17:09 MEDTRONIC 2.75 18 Used INTEGRITY RX *[id number] 17:04 Paxata 30 MILAN INDEFLATOR Used *[id number]- 18:07 Paxata SHEATH, FR6.5 PRELUDE 11CM FR 6.5 038ACT Used *7063426 [id number] 16:11 Paxata WIRE, 3MMJ .035 180CM 180CM Used *0917670 PROBE COVER, STERILE [id number] 16:11 [employer] MEDICAL * Used ULTRASOUND W/ GEL *0862759 [id number] 16:11 NAMIC MANIFOLD, 4 PORT * Used *3599620 [id number] 16:11 NAMIC TUBING, HIGH PRESSURE 48" 48" Used *8922784 16:11 NYCOMED OMNIPAQUE, 350 MG, 150ML 150ML [id number] Used [id number] 16:11 [employer] BLANKET,WARM AIR CCL * Used *0277824 [id number] 16:11 TERRain MEDICAL SHEATH, FR5 TERUMO (10CM) FR 5 Used *1778986 STENT, 2.5 18 RESOLUTE [id number] Scrap: Physician 17:39 MEDTRONIC 2.5 18 INTEGRITY RX *[id number] choice Equipment Model, Serial, Lot Number and Expiration Data Description Model Number Serial Number Lot Number Expiration Date BALLOON, 2.5 12MM EMERGE MR [id number] 05-13-2019 STENT, 2.5 18 RESOLUTE [id number] 08-12-2017 INTEGRITY RX STENT, 2.75 12 RESOLUTE [id number] 07-23-2018 INTEGRITY RX STENT, 2.75 18 RESOLUTE [id number] 03-27-2018 INTEGRITY RX History: Current Medications Medication Dosage/Unit Route Frequency Last Date/Time Taken ASA VASOTEC CARDIZEM LASIX Neurontin PLAVIX History: Allergies Allergy Reaction caffeine aspirin stomach upset acetaminophen povidone-iodine calcium carbonate stomach upset History: Risk Factors Family History of Hypertension Dyslipidemia Previous MS Previous Heart Failure Premature CAD Yes Yes Yes Yes Yes Prior Valve Prior PCI Prior PCIDate Prior CABG Surgery No Yes 10/25/2016 No Cerebrovascular Peripheral Artery Chronic Lung On Dialysis Diabetes Disease Disease Disease No No No Yes No History: Symptoms/Diagnosis Selection Items Angina-unstable Chest pain History: Stress Tests Stress or Imaging Studies Performed No History: Other Disease Selection Items CAD HTN History: Other Current Smoker Quit Packs a Day Years Used Pack Years No 27 Years Ago 2 30 60 Labs Hgb (g/dl) Hct (%) WBC (l/cumm) Platelets (thousands) 11.60-17.00 35.00-51.00 4.00-11.00 150.00-450.00 13.4 39.9 6.9 191 Glucose (mg/dl) BUN (mg/dl) Creatinine (mg/dl) BUN:Creatinine (1:x) 74.00-106.00 7.00-18.00 0.50-1.30 10.00-20.00 71 14 0.8 17.5 Na (meq/l) K (meq/l) 136.00-145.00 3.50-5.10 139 3.7 Troponin I (ng/ml) CPK-MB (ng/ML) 0.02-0.05 0.50-3.60 0.02 Not Drawn Medication Medication Total Dose (Bolus/Oral) Medication Total Dosage/Unit 1% XYLOCAINE 20 mL BENADRYL 50 mg BRILLINTA 180 mg FENTANYL 150 mcg HEPARIN 9000 units NITROGLYCERIN S/L 0.4 mg NTG (IC) 1200 mcg OXYGEN 2 l/min PEPCID 20 mg SOLU-MEDROL 125 mg VERSED 3 mg Medications (Bolus/Oral) Medication Time Given Dosage/Unit Administered By Reason OXYGEN 10/30/2016 4:15:10 PM 2 l/min Beth Alves 2 l/min OXYGEN given in lab by Beth Alves BSRN via Nasal. PEPCID 10/30/2016 4:26:00 PM 20 mg Rittenour, Beth 20 mg PEPCID given in lab by Beth Alves BSRN. Ordered by Anderson Pro. SOLU-MEDROL 10/30/2016 4:27:12 PM 125 mg Rittenour, Beth 125 mg SOLU-MEDROL given in lab by Beth Alves BSRN in Left Antecubital via Peripheral IV. Orde red by Anderson Pro. BENADRYL 10/30/2016 4:28:00 PM 50 mg Rittenour, Beth 50 mg BENADRYL given in lab by Beth Alves BSRN in Left Antecubital via Peripheral IV. Ordered by Anderson Pro. 1% XYLOCAINE 10/30/2016 4:29:16 PM 20 mL Anderson Pro 20 mL 1% XYLOCAINE given in lab by Anderson Pro in Right Groin via Subcutaneous. Ordered by Anderson Lopes. VERSED 10/30/2016 4:29:52 PM 1 mg Rittenour, Beth 1 mg VERSED given in lab by Beth Alves BSRN in Right Antecubital via Peripheral IV. Ordered by Anderson Pro. FENTANYL 10/30/2016 4:30:00 PM 50 mcg Rittenour, Beth 50 mcg FENTANYL given in lab by Beth Alves BSRN in Left Antecubital via Peripheral IV. Ordered by Anderson Pro. HEPARIN 10/30/2016 4:51:03 PM 9000 units Joselyn, Beth 9000 units HEPARIN given in lab by Beth Alves BSRN via Peripheral IV. Ordered by Tom Pro. FENTANYL 10/30/2016 4:52:17 PM 50 mcg Anderson Pro 50 mcg FENTANYL given in lab by Anderson Pro via Peripheral IV. Ordered by Anderson Pro. VERSED 10/30/2016 4:53:15 PM 1 mg Anderson Pro 1 mg VERSED given in lab by Anderson Pro via Peripheral IV. Ordered by Anderson Pro. NTG (IC) 10/30/2016 5:00:12 PM 200 mcg Anderson Pro 200 mcg NTG (IC) given in lab by Anderson Pro via Intra-coronary. Ordered by Anderson Pro. NTG (IC) 10/30/2016 5:05:41 PM 200 mcg Anderson Pro 200 mcg NTG (IC) given in lab by Anderson Pro via Intra-coronary. Ordered by Anderson Pro. VERSED 10/30/2016 5:17:38 PM 1 mg Anderson Pro 1 mg VERSED given in lab by Anderson Pro in Left Antecubital via Peripheral IV. Ordered by Anderson Pro. NTG (IC) 10/30/2016 5:23:05 PM 200 mcg Anderson Pro 200 mcg NTG (IC) given in lab by Anderson Pro via Intra-coronary. Ordered by Anderson Pro. NTG (IC) 10/30/2016 5:24:47 PM 200 mcg Anderson Pro 200 mcg NTG (IC) given in lab by Anderson Pro via Intra-coronary. Ordered by Anderson Pro. FENTANYL 10/30/2016 5:34:27 PM 50 mcg Beth Alves 50 mcg FENTANYL given in lab by Beth Alves BSRN in Left Antecubital via Peripheral IV. Ordered by Anderson Pro. NTG (IC) 10/30/2016 5:37:34 PM 200 mcg Anderson Pro 200 mcg NTG (IC) given in lab by Anderson Pro via Intra-coronary. Ordered by Anderson Pro. NTG (IC) 10/30/2016 6:00:31 PM 200 mcg Anderson Pro 200 mcg NTG (IC) given in lab by Anderson Pro via Intra-coronary. Ordered by Anderson Pro. NITROGLYCERIN S/L 10/30/2016 6:06:30 PM 0.4 mg Beth Alves 0.4 mg NITROGLYCERIN S/L given in lab by Beth Alves BSRN via Sublingual. Ordered by Zunilda Pro. BRILLINTA 10/30/2016 6:12:28 PM 180 mg Beth Alves 180 mg BRILLINTA given in lab by Beth Alves BSRN in Per mouth via Oral. Ordered by [place] Pro. Initial Case Assessment Cardiovascular HR Rhythm NIBP Chest Pain 64 sinus 126/69 1 Edema Present Skin color Skin None Normal Warm Dry Circulatory - Right Pulses Dorsalis Pedis Femoral 2 2 Scale (0,1,2,3,4,d) Circulatory - Left Pulses Dorsalis Pedis Femoral 2 2 Scale (0,1,2,3,4,d) Circulatory - Lower Extremities Color Lower Right Color Lower Left Normal Normal Neurological State Oriented to time-place- Alert Moves all extremities person Respiration - General Respiration Rate SpO2 (%) (B/min) 9 97 Final Case Assessment Cardiovascular HR Rhythm NIBP Chest Pain 64 maggie 128/78 5 Edema Present Skin color Skin None Normal Warm Dry Circulatory - Right Pulses Dorsalis Pedis Femoral 2 2 Scale (0,1,2,3,4,d) Circulatory - Left Pulses Dorsalis Pedis Femoral 2 2 Scale (0,1,2,3,4,d) Circulatory - Lower Extremities Color Lower Right Color Lower Left Normal Normal Neurological State Oriented to time-place- Alert Moves all extremities person Respiration - General Respiration Rate SpO2 (%) (B/min) 9 97 Chronological Log Time Study Chronological Log 15:47:00 Patient arrived via Bed. 15:50:15 Patient Name, D.O.B, / Armband Verified By R.N. 15:50:16 Consent signed by the physician and the patient and verified by the Assistant Professor Of Dietetics staff. 15:50:17 Pre-op and post- op instructions given; patient acknowledges understanding of instructions. 15:50:18 Verbal Stimulation=2 Physical Stimulation=2 Airway=2 Respiration=2 TOTAL=8. (0=absent, 1=li mited, 2=present) 15:50:30 Patient has been NPO for More than 6Hrs. 15:50:32 Skin Breakdown- bruise on right groin from previous PCI 15:50:37 Patient Warmer Placed on the Table. 15:50:41 A # 20 IV was noted in the Antecubital (left). Grade = 0 15:50:43 History and physical on the chart or being dictated. Assessment: Initial Case, HR=64 BPM, Rhythm=sinus, LXBE=401/69 mmhg, Chest Pain=1, Edema=None, Color=Normal, Skin = Warm, Dry Right Pulses: Javier Ped=2, Femoral=2 Left Pulses: Javier Ped=2, Femoral=2 15:50:44 Lower Right Extremities: Color=Normal Lower Left Extremities: Color=Normal Neurological: State=Alert, Ox3, [place] Respiration: Resp=9 B/min, SpO2=97 % Vitals capture started with the following parameters, Patient=Adult, Interval=5 min, Initial Pr rixwhv=870 mmHg, 15:51:09 Deflation Rate=5 mmHg, Cuff placed on Left Arm 15:55:36 HR=64 bpm, OUGS=227/74 mmhg, SpO2=97.0 %, Resp=8 B/min, Pain=1, Digna=10, Sneed=2 16:01:14 HR=64 bpm, HCDK=988/69 mmhg, SpO2=97.0 %, Resp=14 B/min, Pain=1, Digna=10, Sneed=2 16:04:33 Bilateral groins prepped with 2% chlorhexidine, and draped after a 3 min. waiting time. 16:05:30 HR=62 bpm, IJOW=911/64 mmhg, SpO2=99.0 %, Resp=12 B/min, Pain=1, Digna=10, Sneed=2 16:10:27 HR=67 bpm, AAES=757/69 mmhg, SpO2=99.0 %, Resp=9 B/min, Pain=1, Digna=10, Sneed=2 16:11:19 Pressure channel 1 zeroed. 16:12:09 MD paged 16:15:10 2 l/min OXYGEN given in lab by Beth Alves BSRN via Nasal. 16:15:26 HR=68 bpm, XUKY=537/68 mmhg, SpO2=98.0 %, Resp=12 B/min, Pain=1, Digna=10, Sneed=2 16:20:04 MD arrived. 16:20:27 HR=63 bpm, KMLL=639/74 mmhg, SpO2=99.0 %, Resp=9 B/min, Pain=1, Digna=10, Sneed=2 16:23:10 Reference ECG taken 16:25:28 HR=66 bpm, ZEGX=324/68 mmhg, SpO2=98.0 %, Resp=14 B/min, Pain=1, Digna=10, Sneed=2 16:26:00 20 mg PEPCID given in lab by Beth Alves BSRN. Ordered by Anderson Pro. 125 mg SOLU-MEDROL given in lab by Beth Alves BSRN in Left Antecubital via Peripheral IV . Ordered by 16:27:12 Anderson Pro. 50 mg BENADRYL given in lab by Beth Alves BSRN in Left Antecubital via Peripheral IV. Or dered by Morteza, 16:28:00 Anderson. Time Out. Correct patient, correct procedure, correct physician, power injector loaded with con trast with surgical team 16:28:07 present. Time Out Concurred by , individual staff in procedure. 16:29:10 Case Start 16:29:16 20 mL 1% XYLOCAINE given in lab by Anderson Pro in Right Groin via Subcutaneous. Ordered by Anderson Pro. 1 mg VERSED given in lab by Beth Alves BSRN in Right Antecubital via Peripheral IV. Orde red by Morteza, 16:29:52 Anderson. 16:29:58 Access site was Left Femoral Artery. 50 mcg FENTANYL given in lab by Beth Alves BSRN in Left Antecubital via Peripheral IV. O rdered by Morteza, 16:30:00 Anderson. 16:30:23 A SHEATH, FR5 TERUMO (10CM) FR 5 was advanced into the Fem Art (left) using the Percutaneou s technique. 16:30:27 HR=63 bpm, JZHA=400/86 mmhg, CkE6=134.0 %, Resp=14 B/min, Pain=1, Digna=10, Sneed=2 A PIGTAIL ANG. INFINITI CATHETER FR 5 was advanced over a wire. OMNIPAQUE, 350 MG, 150ML 150ML was used 16:31:19 for injections. 16:32:23 Activated Clotting Time Drawn Recorded Pressure: LV, WR=518, Condition=Condition 1 16:32:42 (Left Ventricle) LV 134/42/69 16:34:09 The LV was injected at 10 cc/sec for a total of 30. OMNIPAQUE, 350 MG, 150ML 150ML used. Recorded Pressure: LV, Ao, HR=67, Condition=Condition 1 16:34:25 (Left Ventricle) LV 132/5/19, (Aorta) Ao 138/67/100 16:34:50 ACT (Normal Range 90-180) = 131 After removing the current catheter a JL 4.0 INFINITI CATHETER FR 5 was advanced over a WIRE, 3 MMJ .035 180CM 16:34:55 180CM. 16:35:28 HR=60 bpm, AIVM=879/70 mmhg, SpO2=97.0 %, Resp=16 B/min, Pain=1, Digna=10, Sneed=2 Recorded Pressure: Ao, HR=65, Condition=Condition 1 16:35:57 (Aorta) Ao 137/71/101 16:37:00 The LCA was injected and visualized at various angles. OMNIPAQUE, 350 MG, 150ML 150ML used . 16:40:07 Catheter was removed A AR MOD INFINITI CATHETER FR 5 was advanced over a wire. OMNIPAQUE, 350 MG, 150ML 150ML was us ed for 16:40:18 injections. 16:40:31 HR=65 bpm, XHKO=611/79 mmhg, SpO2=98.0 %, Resp=13 B/min, Pain=1, Digna=10, Sneed=2 16:40:55 The RCA was injected and visualized at various angles. OMNIPAQUE, 350 MG, 150ML 150ML used . 16:45:35 HR=60 bpm, MSDN=568/65 mmhg, SpO2=99.0 %, Resp=12 B/min, Pain=1, Digna=10, Sneed=2 16:50:30 HR=60 bpm, EAMZ=014/71 mmhg, SpO2=99.0 %, Resp=11 B/min, Pain=1, Digna=10, Sneed=2 16:51:03 9000 units HEPARIN given in lab by Beth Alves BSRN via Peripheral IV. Ordered by Anderson Samayoa. 16:52:17 50 mcg FENTANYL given in lab by Anderson Pro via Peripheral IV. Ordered by Tom Pro ar. 16:53:15 1 mg VERSED given in lab by Anderson Pro via Peripheral IV. Ordered by Anderson Pro. 16:55:29 HR=62 bpm, ILPI=034/66 mmhg, SpO2=97.0 %, Resp=10 B/min, Pain=1, Digna=10, Sneed=2 A SHEATH, FR6.5 PRELUDE 11CM FR 6.5 was exchanged in the Fem Art (left). This was necessary in order to 16:55:35 accomodate a larger catheter. A XBLAD 3.5 GUIDE CATHETER FR 6 was advanced over a wire. OMNIPAQUE, 350 MG, 150ML 150ML was us ed for 16:56:53 injections. 16:57:45 Activated Clotting Time Drawn 17:00:12 200 mcg NTG (IC) given in lab by Anderson Pro via Intra-coronary. Ordered by [place] Pro. 17:00:28 HR=60 bpm, HKQW=511/67 mmhg, SpO2=98.0 %, Resp=10 B/min, Pain=1, Digna=10, Sneed=2 A BALLOON, 2.0 8MM EMERGE MR 2.0 8MM was inserted over WIRE, BALANCE MIDDLEWEIGHT 190CM 190CM v ia the 17:02:20 Fem Art (left). 17:03:11 ACT (Normal Range 90-180) = 302 A BALLOON, 2.0 8MM EMERGE MR 2.0 8MM over a WIRE, BALANCE MIDDLEWEIGHT 190CM 190CM in the LAD M id was 17:03:29 inflated using a 30 MILAN INDEFLATOR at 14 milan for 22 sec. A BALLOON, 2.0 8MM EMERGE MR 2.0 8MM over a WIRE, BALANCE MIDDLEWEIGHT 190CM 190CM in the LAD M id was 17:03:53 inflated using a 30 MILAN INDEFLATOR at 14 milan for 18 sec. A BALLOON, 2.0 8MM EMERGE MR 2.0 8MM over a WIRE, BALANCE MIDDLEWEIGHT 190CM 190CM in the LAD M id was 17:04:36 inflated using a 30 MILAN INDEFLATOR at 14 milan for 12 sec. A BALLOON, 2.0 8MM EMERGE MR 2.0 8MM over a WIRE, BALANCE MIDDLEWEIGHT 190CM 190CM in the LAD M id was 17:04:50 inflated using a 30 MILAN INDEFLATOR at 14 milan for 12 sec. 17:05:07 Balloon Removed. 17:05:33 HR=62 bpm, RFAQ=507/68 mmhg, SpO2=97.0 %, Resp=15 B/min, Pain=4, Digna=10, Sneed=2 17:05:41 200 mcg NTG (IC) given in lab by Anderson Pro via Intra-coronary. Ordered by [place] Pro. A STENT, 2.75 18 RESOLUTE INTEGRITY RX 2.75 18 was advanced through a XBLAD 3.5 GUIDE CATHETER FR 6 over 17:08:31 a WIRE, BALANCE MIDDLEWEIGHT 190CM 190CM. 17:09:49 Stent not deployed. Stent removed and intact. 17:10:34 HR=61 bpm, IPRF=081/67 mmhg, SpO2=98.0 %, Resp=10 B/min, Pain=4, Digna=10, Sneed=2 17:13:09 A WIRE, HI TORQUE ALLSTAR 190CM 190CM was inserted via Fem Art (left). 17:15:35 HR=60 bpm, EPTT=097/64 mmhg, SpO2=98.0 %, Resp=11 B/min, Pain=4, Digna=10, Sneed=2 A BALLOON, 2.5 12MM EMERGE MR 2.5 12MM was inserted over WIRE, BALANCE MIDDLEWEIGHT 190CM 190CM via 17:16:20 the Fem Art (left). A BALLOON, 2.5 12MM EMERGE MR 2.5 12MM over a WIRE, BALANCE MIDDLEWEIGHT 190CM 190CM in the LAD Mid 17:16:35 was inflated using a 30 MILAN INDEFLATOR at 6 milan for 10 sec. A BALLOON, 2.5 12MM EMERGE MR 2.5 12MM over a WIRE, BALANCE MIDDLEWEIGHT 190CM 190CM in the LAD Mid 17:17:18 was inflated using a 30 MILAN INDEFLATOR at 16 milan for 13 sec. 17:17:38 1 mg VERSED given in lab by Anderson Pro in Left Antecubital via Peripheral IV. Ordered by Anderson Pro. A BALLOON, 2.5 12MM EMERGE MR 2.5 12MM over a WIRE, BALANCE MIDDLEWEIGHT 190CM 190CM in the LAD Mid 17:17:50 was inflated using a 30 MILAN INDEFLATOR at 16 milan for 22 sec. A BALLOON, 2.5 12MM EMERGE MR 2.5 12MM over a WIRE, BALANCE MIDDLEWEIGHT 190CM 190CM in the LAD Mid 17:18:28 was inflated using a 30 MILAN INDEFLATOR at 16 milan for 8 sec. A BALLOON, 2.5 12MM EMERGE MR 2.5 12MM over a WIRE, BALANCE MIDDLEWEIGHT 190CM 190CM in the LAD Mid 17:18:45 was inflated using a 30 MILAN INDEFLATOR at 16 milan for 8 sec. A BALLOON, 2.5 12MM EMERGE MR 2.5 12MM over a WIRE, BALANCE MIDDLEWEIGHT 190CM 190CM in the LAD Mid 17:18:58 was inflated using a 30 MILAN INDEFLATOR at 16 milan for 5 sec. 17:19:20 Balloon Removed. 17:20:36 HR=63 bpm, NKEQ=529/71 mmhg, SpO2=99.0 %, Resp=12 B/min, Pain=4, Digna=10, Sneed=2 A STENT, 2.75 18 RESOLUTE INTEGRITY RX 2.75 18 was advanced through a XBLAD 3.5 GUIDE CATHETER FR 6 over 17:21:08 a WIRE, BALANCE MIDDLEWEIGHT 190CM 190CM. 17:21:15 Wire removed A STENT, 2.75 18 RESOLUTE INTEGRITY RX 2.75 18 was deployed using a 30 MILAN INDEFLATOR at 9 atmo spheres for 17:21:45 20 seconds in the LAD Mid. 17:22:50 Delivery device removed 17:23:05 200 mcg NTG (IC) given in lab by Anderson Pro via Intra-coronary. Ordered by [place] Pro. 17:24:47 200 mcg NTG (IC) given in lab by Anderson Pro via Intra-coronary. Ordered by [place] Pro. 17:25:31 HR=62 bpm, WOYR=250/78 mmhg, SpO2=97.0 %, Resp=12 B/min, Pain=4, Digna=10, Sneed=2 A BALLOON, 2.5 12MM EMERGE MR 2.5 12MM was inserted over WIRE, BALANCE MIDDLEWEIGHT 190CM 190CM via 17:26:52 the Fem Art (left). A BALLOON, 2.5 12MM EMERGE MR 2.5 12MM over a WIRE, BALANCE MIDDLEWEIGHT 190CM 190CM in the LAD Mid 17:27:15 was inflated using a 30 MILAN INDEFLATOR at 12 milan for 16 sec. A BALLOON, 2.5 12MM EMERGE MR 2.5 12MM over a WIRE, BALANCE MIDDLEWEIGHT 190CM 190CM in the LAD Mid 17:28:11 was inflated using a 30 MILAN INDEFLATOR at 6 milan for 15 sec. A BALLOON, 2.5 12MM EMERGE MR 2.5 12MM over a WIRE, BALANCE MIDDLEWEIGHT 190CM 190CM in the LAD Mid 17:28:26 was inflated using a 30 MILAN INDEFLATOR at 6 milan for 6 sec. A BALLOON, 2.5 12MM EMERGE MR 2.5 12MM over a WIRE, BALANCE MIDDLEWEIGHT 190CM 190CM in the LAD Mid 17:29:30 was inflated using a 30 MILAN INDEFLATOR at 6 milan for 6 sec. A BALLOON, 2.5 12MM EMERGE MR 2.5 12MM over a WIRE, BALANCE MIDDLEWEIGHT 190CM 190CM in the LAD Mid 17:30:36 was inflated using a 30 MILAN INDEFLATOR at 6 milan for 6 sec. 17:30:57 Balloon Removed. 17:31:13 HR=62 bpm, PXLM=445/73 mmhg, SpO2=99.0 %, Resp=10 B/min, Pain=4, Digna=10, Sneed=2 A BALLOON, 2.5 12MM EMERGE MR 2.5 12MM was inserted over WIRE, BALANCE MIDDLEWEIGHT 190CM 190CM via 17:33:50 the Fem Art (left). 50 mcg FENTANYL given in lab by Beth Alves BSRN in Left Antecubital via Peripheral IV. O rdered by Morteza, 17:34:27 Anderson. A BALLOON, 2.5 12MM EMERGE MR 2.5 12MM over a WIRE, BALANCE MIDDLEWEIGHT 190CM 190CM in the LAD Mid 17:35:18 was inflated using a 30 MILAN INDEFLATOR at 14 milan for 38 sec. 17:35:37 HR=64 bpm, UMLT=928/81 mmhg, SpO2=99.0 %, Resp=11 B/min, Pain=4, Digna=10, Sneed=2 A BALLOON, 2.5 12MM EMERGE MR 2.5 12MM over a WIRE, BALANCE MIDDLEWEIGHT 190CM 190CM in the LAD Mid 17:36:24 was inflated using a 30 MILAN INDEFLATOR at 14 milan for 14 sec. A BALLOON, 2.5 12MM EMERGE MR 2.5 12MM over a WIRE, BALANCE MIDDLEWEIGHT 190CM 190CM in the LAD Mid 17:36:39 was inflated using a 30 MILAN INDEFLATOR at 14 milan for 9 sec. A BALLOON, 2.5 12MM EMERGE MR 2.5 12MM over a WIRE, BALANCE MIDDLEWEIGHT 190CM 190CM in the LAD Mid 17:36:42 was inflated using a 30 MILAN INDEFLATOR at 14 milan for 9 sec. A BALLOON, 2.5 12MM EMERGE MR 2.5 12MM over a WIRE, BALANCE MIDDLEWEIGHT 190CM 190CM in the LAD Mid 17:36:54 was inflated using a 30 MILAN INDEFLATOR at 14 milan for 9 sec. 17:37:13 Balloon Removed. 17:37:34 200 mcg NTG (IC) given in lab by Anderson Pro via Intra-coronary. Ordered by [place] Pro. A STENT, 2.5 18 RESOLUTE INTEGRITY RX 2.5 18 was advanced through a XBLAD 3.5 GUIDE CATHETER FR 6 over a 17:40:16 WIRE, BALANCE MIDDLEWEIGHT 190CM 190CM. 17:40:38 HR=60 bpm, CCTD=078/70 mmhg, SpO2=96.0 %, Resp=10 B/min, Pain=4, Digna=10, Sneed=2 17:40:39 Stent not deployed. Stent removed and intact. A STENT, 2.75 12 RESOLUTE INTEGRITY RX 2.75 12 was advanced through a XBLAD 3.5 GUIDE CATHETER FR 6 over 17:43:02 a WIRE, BALANCE MIDDLEWEIGHT 190CM 190CM. 17:45:35 HR=64 bpm, WIWG=179/68 mmhg, SpO2=98.0 %, Resp=10 B/min, Pain=4, Digna=10, Sneed=2 A STENT, 2.75 12 RESOLUTE INTEGRITY RX 2.75 12 was deployed using a 30 MILAN INDEFLATOR at 9 atmo spheres for 17:45:56 20 seconds in the LAD Mid. 17:48:09 Re-inflated the stent balloon in the LAD Mid to 9 MILAN for 12 seconds. A BALLOON, 2.75 X 20MM NC EUPHORA 20MM was inserted over WIRE, BALANCE MIDDLEWEIGHT 190CM 190CM via 17:49:28 the Fem Art (left). 17:50:38 HR=62 bpm, TNTR=421/64 mmhg, SpO2=97.0 %, Resp=11 B/min, Pain=4, Digna=10, Sneed=2 A BALLOON, 2.75 X 20MM NC EUPHORA 20MM over a WIRE, BALANCE MIDDLEWEIGHT 190CM 190CM in the LAD Mid 17:51:15 was inflated using a 30 MILAN INDEFLATOR at 9 milan for 30 sec. A BALLOON, 2.75 X 20MM NC EUPHORA 20MM over a WIRE, BALANCE MIDDLEWEIGHT 190CM 190CM in the LAD Mid 17:51:35 was inflated using a 30 MILAN INDEFLATOR at 9 milan for 20 sec. A BALLOON, 2.75 X 20MM NC EUPHORA 20MM over a WIRE, BALANCE MIDDLEWEIGHT 190CM 190CM in the LAD Mid 17:51:43 was inflated using a 30 MILAN INDEFLATOR at 16 milan for 18 sec. A BALLOON, 2.75 X 20MM NC EUPHORA 20MM over a WIRE, BALANCE MIDDLEWEIGHT 190CM 190CM in the LAD Mid 17:51:54 was inflated using a 30 MILAN INDEFLATOR at 16 milan for 15 sec. 17:53:11 Balloon Removed. A STENT, 2.5 12 RESOLUTE INTEGRITY RX 2.5 12 was advanced through a XBLAD 3.5 GUIDE CATHETER FR 6 over a 17:55:30 WIRE, BALANCE MIDDLEWEIGHT 190CM 190CM. 17:55:39 HR=65 bpm, ZAWU=182/78 mmhg, SpO2=98.0 %, Resp=11 B/min, Pain=4, Digna=10, Sneed=2 A STENT, 2.5 12 RESOLUTE INTEGRITY RX 2.5 12 was deployed using a 30 MILAN INDEFLATOR at 9 atmosp heres for 20 17:56:25 seconds in the LAD Mid. 17:57:04 Re-inflated the stent balloon in the LAD Mid to 16 MILAN for 25 seconds. 17:58:04 Re-inflated the stent balloon in the LAD Mid to 16 MILAN for 30 seconds. 17:59:03 Re-inflated the stent balloon in the LAD Mid to 16 MILAN for 20 seconds. 17:59:34 Re-inflated the stent balloon in the LAD Mid to 16 MILAN for 10 seconds. 18:00:06 Delivery device removed 18:00:31 200 mcg NTG (IC) given in lab by Anderson Pro via Intra-coronary. Ordered by [place] Pro. 18:00:43 HR=59 bpm, JDCC=313/76 mmhg, SpO2=99.0 %, Resp=9 B/min, Pain=3, Digna=10, Sneed=2 18:03:39 Both wires removed. 18:05:36 HR=61 bpm, EEEU=273/73 mmhg, SpO2=99.0 %, Resp=8 B/min, Pain=3, Digna=10, Sneed=2 18:06:26 An injection in the Groin (left) was made through the SHEATH, FR6.5 PRELUDE 11CM FR 6.5. 18:06:30 0.4 mg NITROGLYCERIN S/L given in lab by Beth Alves BSRN via Sublingual. Ordered by Anderson Pro. 18:09:34 ANGIOSEAL, FR6 VIP FR 6 placement in the Fem Art (left) 18:09:46 Case End 18:09:51 Sterile dressing applied to site 18:09:56 No case complications noted. 18:09:57 Cine recording checked. 18:09:58 Bedside Report will be given. 18:10:06 Contrast Scanned 18:10:11 A Left Heart Cath was performed. 18:10:35 HR=63 bpm, EUGV=247/78 mmhg, SpO2=97.0 %, Resp=10 B/min, Pain=3, Digna=10, Sneed=2 Assessment: Final Case, HR=64 BPM, Rhythm=maggie, OGQC=382/78 mmhg, Chest Pain=5, Edema=None, Color=Normal, Skin = Warm, Dry Right Pulses: Javier Ped=2, Femoral=2 Left Pulses: Javier Ped=2, Femoral=2 18:11:18 Lower Right Extremities: Color=Normal Lower Left Extremities: Color=Normal Neurological: State=Alert, Ox3, [place] Respiration: Resp=9 B/min, SpO2=97 % 18:12:28 180 mg BRILLINTA given in lab by Beth Alves BSRN in Per mouth via Oral. Ordered by Anderson Pro. 18:15:56 Vitals capture stopped. 18:17:45 [facility] End Study - Contrast Media Used In Study Contrast Total Opened (mL) Total Used (mL) Total Wasted (mL) Omnipaque 330 330 0 End Study - Maximum Contrast Load Max Contrast Load (mL) 750.0 End Study - Radiation Exposure Fluoro Time (minutes) 22.1 End Study - Patient Disposition Complications Transferred To Interventional Outcome No Telemetry Bed successful
[2016-10-30] MEDS: ACETAMINOPHEN 325 MG TAB PO PRN (21:05)
--- NOTE | 2016-10-30 21:32 | PD.CARD.PN ---
Subjective Subjective Remarks Continuing angina despite medical tx, some relief w NTG Objective Medications Current Medications Medications (Trade) Dose Ordered Sig/Roxana Route Start Time Stop Time Status Last Admin (Heparin Inj) 5,000 units UNSCH PRN IV 10/28/16 01:30 (Heparin Inj) 2,500 units UNSCH PRN IV 10/28/16 01:30 10/28/16 21:20 Heparin Sodium/ Dextrose 250 ml @ 14.4 mls/hr [id number] PRN IV 10/27/16 19:28 10/30/16 08:52 Sodium Chloride 1,000 ml @ 60 mls/hr [id number] IV 10/27/16 19:53 10/30/16 21:09 (NS Flush) 2 ml UNSCH PRN IV FLUSH 10/27/16 20:00 (NS Flush) 2 ml BID IV FLUSH 10/27/16 21:00 (Zofran Inj) 4 mg Q6H PRN IVP 10/27/16 20:00 (Morphine Inj) 2 mg Q3H PRN IV 10/27/16 20:00 10/28/16 19:10 (Roxicodone) 5 mg Q4H PRN PO 10/27/16 20:00 (Jennifer-Colace) 1 tab BID PO 10/27/16 21:00 10/30/16 08:45 (Milk Of Magnesia Liq) 30 ml Q12H PRN PO 10/27/16 20:00 (Senokot) 17.2 mg Q12H PRN PO 10/27/16 20:00 (Dulcolax Supp) 10 mg DAILY PRN RECTAL 10/27/16 20:00 (Lactulose Liq) 30 ml DAILY PRN PO 10/27/16 20:00 (Plavix) 75 mg DAILY PO 10/28/16 11:30 10/30/16 08:46 (Ecotrin Ec) 81 mg DAILY PO 10/28/16 11:30 10/30/16 08:46 (Vasotec) 5 mg DAILY PO 10/29/16 09:00 10/30/16 08:46 (Cardizem Cd) 180 mg DAILY PO 10/28/16 11:30 10/30/16 08:45 (Lopressor) 25 mg BID PO 10/28/16 11:30 10/30/16 21:05 (Pepcid) 20 mg BID PO 10/28/16 12:00 10/30/16 21:06 (Proscar) 5 mg 2XWEEK PO 10/28/16 15:00 (Neurontin) 300 mg BID PO 10/28/16 14:00 10/30/16 21:05 (Skelaxin) 800 mg DAILY PRN PO 10/28/16 13:15 (Restoril) 15 mg HS PRN PO 10/28/16 13:15 10/29/16 20:53 (Vitamin B12) 1,000 mcg DAILY PO 10/29/16 09:00 10/30/16 08:45 (Xanax) 0.25 mg BID PO 10/28/16 13:30 10/30/16 21:06 (Welchol) 1,250 mg TID@1000,1400,1800 PO 10/28/16 18:00 10/30/16 13:55 (Tylenol) 650 mg Q4H PRN PO 10/28/16 17:45 10/30/16 21:05 (Nitroglycerin 2% Oint) 0.5 inch Q8H TOPICAL 10/29/16 13:00 10/30/16 21:04 Vital Signs / I&O Vital Signs Date Time Temp Pulse Resp B/P (MAP) Pulse Ox O2 Delivery O2 Flow Rate FiO2 10/30/16 18:00 89 10/30/16 15:00 98.0 59 20 120/75 (90) 97 10/30/16 15:00 56 10/30/16 14:00 53 10/30/16 13:00 54 10/30/16 12:00 60 10/30/16 11:00 97.0 56 20 105/64 (78) 97 10/30/16 11:00 56 10/30/16 10:00 54 10/30/16 09:00 56 10/30/16 08:00 74 10/30/16 08:00 98.4 56 20 105/64 (78) 97 10/30/16 07:00 56 10/30/16 06:37 49 10/30/16 05:38 77 10/30/16 04:09 50 10/30/16 03:36 53 10/30/16 03:20 97.9 56 16 90/56 (67) 96 10/30/16 02:31 52 10/30/16 01:35 50 10/30/16 00:24 49 10/29/16 23:42 53 10/29/16 23:20 97.9 62 16 96/63 (74) 95 10/29/16 22:00 56 I/O 10/29/16 10/29/16 10/29/16 10/30/16 10/30/16 10/30/16 07:00 15:00 23:00 07:00 15:00 23:00 Intake Total 1104 ml 2857 ml 1099 ml 928 ml 1130 ml Output Total 200 ml 1900 ml 1350 ml 1950 ml Balance 904 ml 957 ml -251 ml 928 ml -820 ml Intake Oral 240 ml 1120 ml 240 ml 0 ml IV Total 864 ml 1737 ml 859 ml 928 ml 1130 ml Output Urine Total 200 ml 1900 ml 1350 ml 1950 ml # Voids 1 # Bowel Movements 0 Physical Exam GENERAL: In mild distress SKIN: Warm and dry. HEAD: Normocephalic. EYES: No scleral icterus. No injection or drainage. NECK: Supple, trachea midline. No JVD or lymphadenopathy. CARDIOVASCULAR: Regular rate and rhythm without murmurs, gallops, or rubs. RESPIRATORY: Breath sounds equal bilaterally. No accessory muscle use. GASTROINTESTINAL: Abdomen soft, non-tender, nondistended. MUSCULOSKELETAL: No cyanosis, or edema. Laboratory Laboratory Tests Test 10/30/16 04:40 White Blood Count 6.9 TH/MM3 Red Blood Count 4.52 MIL/MM3 Hemoglobin 13.4 GM/DL Hematocrit 39.9 % Mean Corpuscular Volume 88.2 FL Mean Corpuscular Hemoglobin 29.6 PG Mean Corpuscular Hemoglobin Concent 33.6 % Red Cell Distribution Width 13.4 % Platelet Count 191 TH/MM3 Mean Platelet Volume 8.1 FL Activated Partial Thromboplast Time 49.9 SEC Imaging Last Impressions Chest X-Ray 10/27/16 1724 Signed Impressions: Service Date/Time: Thursday, October 27, 2016 17:41 - CONCLUSION: No evidence of acute cardiopulmonary disease. Alfredo Bowden MD Assessment and Plan Problem List: (1) CAD (coronary artery disease) ICD Codes: I25.10 - Atherosclerotic heart disease of [place] coronary artery without angina pectoris (2) Unstable angina ICD Codes: I20.0 - Unstable angina Status: Acute (3) ACS (acute coronary syndrome) ICD Codes: I24.9 - Acute ischemic heart disease, unspecified Assessment and Plan Unstable angina not responding to medical tx. Proceed with cath and coronary intervention. Anderson Pro MD Oct 30, 2016 21:32
[2016-10-30] MEDS ORDERED: SODIUM CHLOR 0.9% 1000 ML INJ 1,000 ML IV SCH (22:18)
[2016-10-31] VITALS (24 sets, daily range): BP systolic 93–131; BP diastolic 56–76; PULSE 58–88; RESP 16–18; TEMP 97.7–98.9; O2SAT 95–97
[2016-10-31] MEDS: NITROGLYCERIN 2% OINT 1 GM PACKET TOPICAL SCH ×3 (05:00→21:00)
[2016-10-31 07:39] LABS: BICARBONATE 24.1 MEQ/L (21.0-32.0)
[2016-10-31] MEDS: DILTIAZEM-CD 180 MG CAP ER PO SCH (08:27)
[2016-10-31] MEDS: GABAPENTIN 300 MG CAP PO SCH ×2 (08:27→21:00)
[2016-10-31] MEDS: METOPROLOL TARTRATE 25 MG TAB PO SCH ×2 (08:27→21:00)
[2016-10-31] MEDS: ENALAPRIL MALEATE 5 MG TAB PO SCH (08:27)
[2016-10-31] MEDS: FAMOTIDINE 20 MG TAB PO SCH ×2 (08:27→21:00)
[2016-10-31] MEDS: CYANOCOBALAMIN 1,000 MCG TAB PO SCH (08:27)
[2016-10-31] MEDS: DOCUSATE SODIUM 50 MG/SENNA 8.6 MG TAB PO SCH ×2 (08:27→21:00)
[2016-10-31] MEDS: ASPIRIN EC 81 MG TABEC PO SCH (08:27)
[2016-10-31] MEDS: ALPRAZolam 0.25 MG TAB PO SCH ×2 (08:28→21:01)
[2016-10-31] MEDS: SODIUM CHLORIDE 0.9% FLUSH 10 ML FLUSH IV FLUSH SCH ×2 (08:28→21:00)
[2016-10-31] MEDS: TICAGRELOR 90 MG TAB PO SCH ×2 (08:28→21:01)
[2016-10-31] MEDS: CLOPIDOGREL 75 MG TAB PO SCH (08:29)
[2016-10-31] MEDS: COLESEVELAM HCL 625 MG TAB PO SCH ×3 (10:07→18:00)
--- NOTE | 2016-10-31 11:03 | EKG ---
Date Performed: 10/31/2016 Time Performed: 04:08:30 PTAGE: 71 years EKG: Sinus rhythm with first degree AV block Right bundle branch block Cannot exclude old inferior infarct Abnormal EC G PREVIOUS TRACING : 10/29/2016 06.41 No change from the prior tracing. DOCTOR: Aidan Richter Interpretating Date/Time 10/31/2016 11:02:45
[2016-10-31] MEDS: SODIUM CHLOR 0.9% 1000 ML INJ 1,000 ML IV SCH (11:25)
--- NOTE | 2016-10-31 14:05 | PD.CARD.PN ---
Subjective Subjective Remarks No CP or SOB, feels fine, eating breakfast Objective Medications Current Medications Medications (Trade) Dose Ordered Sig/Roxana Route Start Time Stop Time Status Last Admin (Heparin Inj) 5,000 units UNSCH PRN IV 10/28/16 01:30 (Heparin Inj) 2,500 units UNSCH PRN IV 10/28/16 01:30 10/28/16 21:20 Heparin Sodium/ Dextrose 250 ml @ 14.4 mls/hr [id number] PRN IV 10/27/16 19:28 10/30/16 08:52 Sodium Chloride 1,000 ml @ 60 mls/hr [id number] IV 10/27/16 19:53 10/30/16 21:09 (NS Flush) 2 ml UNSCH PRN IV FLUSH 10/27/16 20:00 (NS Flush) 2 ml BID IV FLUSH 10/27/16 21:00 10/31/16 08:28 (Zofran Inj) 4 mg Q6H PRN IVP 10/27/16 20:00 (Morphine Inj) 2 mg Q3H PRN IV 10/27/16 20:00 10/28/16 19:10 (Roxicodone) 5 mg Q4H PRN PO 10/27/16 20:00 (Jennifer-Colace) 1 tab BID PO 10/27/16 21:00 10/31/16 08:27 (Milk Of Magnesia Liq) 30 ml Q12H PRN PO 10/27/16 20:00 (Senokot) 17.2 mg Q12H PRN PO 10/27/16 20:00 (Dulcolax Supp) 10 mg DAILY PRN RECTAL 10/27/16 20:00 (Lactulose Liq) 30 ml DAILY PRN PO 10/27/16 20:00 (Ecotrin Ec) 81 mg DAILY PO 10/28/16 11:30 10/31/16 08:27 (Vasotec) 5 mg DAILY PO 10/29/16 09:00 10/31/16 08:27 (Cardizem Cd) 180 mg DAILY PO 10/28/16 11:30 10/31/16 08:27 (Lopressor) 25 mg BID PO 10/28/16 11:30 10/31/16 08:27 (Pepcid) 20 mg BID PO 10/28/16 12:00 10/31/16 08:27 (Proscar) 5 mg 2XWEEK PO 10/28/16 15:00 (Neurontin) 300 mg BID PO 10/28/16 14:00 10/31/16 08:27 (Skelaxin) 800 mg DAILY PRN PO 10/28/16 13:15 (Restoril) 15 mg HS PRN PO 10/28/16 13:15 10/29/16 20:53 (Vitamin B12) 1,000 mcg DAILY PO 10/29/16 09:00 10/31/16 08:27 (Xanax) 0.25 mg BID PO 10/28/16 13:30 10/31/16 08:28 (Welchol) 1,250 mg TID@1000,1400,1800 PO 10/28/16 18:00 10/31/16 10:07 (Tylenol) 650 mg Q4H PRN PO 10/28/16 17:45 10/30/16 21:05 (Nitroglycerin 2% Oint) 0.5 inch Q8H TOPICAL 10/29/16 13:00 10/31/16 05:00 (Brilinta) 90 mg BID PO 10/31/16 09:00 10/31/16 08:28 Vital Signs / I&O Vital Signs Date Time Temp Pulse Resp B/P (MAP) Pulse Ox O2 Delivery O2 Flow Rate FiO2 10/31/16 13:01 72 10/31/16 12:38 72 10/31/16 11:28 77 10/31/16 11:28 97.7 73 18 93/56 (68) 96 10/31/16 10:01 76 10/31/16 09:11 72 10/31/16 08:49 81 10/31/16 08:49 97.7 88 18 117/64 (81) 95 10/31/16 06:17 71 10/31/16 05:20 70 10/31/16 04:36 73 10/31/16 03:18 72 10/31/16 03:10 97.7 74 18 109/59 (76) 95 10/31/16 02:20 72 10/31/16 01:10 79 10/31/16 00:12 74 10/30/16 23:04 98.4 75 16 122/66 (84) 97 10/30/16 23:00 79 10/30/16 22:00 80 10/30/16 21:00 76 10/30/16 20:00 66 10/30/16 19:20 69 10/30/16 19:20 98.6 69 18 129/76 (93) 96 10/30/16 18:00 89 10/30/16 15:00 98.0 59 20 120/75 (90) 97 10/30/16 15:00 56 I/O 10/30/16 10/30/16 10/30/16 10/31/16 10/31/16 10/31/16 07:00 15:00 23:00 07:00 15:00 23:00 Intake Total 1099 ml 928 ml 1130 ml 1380 ml Output Total 1350 ml 1950 ml 1750 ml Balance -251 ml 928 ml -820 ml -370 ml Intake Oral 240 ml 0 ml 480 ml IV Total 859 ml 928 ml 1130 ml 900 ml Output Urine Total 1350 ml 1950 ml 1750 ml # Bowel Movements 0 Physical Exam GENERAL: In NAD SKIN: Warm and dry. HEAD: Normocephalic. EYES: No scleral icterus. No injection or drainage. NECK: Supple, trachea midline. No JVD or lymphadenopathy. CARDIOVASCULAR: Regular rate and rhythm without murmurs, gallops, or rubs. RESPIRATORY: Breath sounds equal bilaterally. No accessory muscle use. GASTROINTESTINAL: Abdomen soft, non-tender, nondistended. MUSCULOSKELETAL: No cyanosis, or edema. Laboratory Laboratory Tests Test 10/31/16 06:08 Blood Urea Nitrogen 14 MG/DL Creatinine 1.04 MG/DL Random Glucose 169 MG/DL Calcium Level 8.1 MG/DL Sodium Level 142 MEQ/L Potassium Level 4.0 MEQ/L Chloride Level 109 MEQ/L Carbon Dioxide Level 24.1 MEQ/L Anion Gap 9 MEQ/L Estimat Glomerular Filtration Rate 71 ML/MIN Total Creatine Kinase 41 U/L Triglycerides Level 116 MG/DL Cholesterol Level 149 MG/DL LDL Cholesterol 81 MG/DL HDL Cholesterol 45.0 MG/DL Cholesterol/HDL Ratio 3.31 RATIO Imaging Last Impressions Chest X-Ray 10/27/16 3994 Signed Impressions: Service Date/Time: Thursday, October 27, 2016 17:41 - CONCLUSION: No evidence of acute cardiopulmonary disease. Alfredo Bowden MD Assessment and Plan Problem List: (1) CAD (coronary artery disease) ICD Codes: I25.10 - Atherosclerotic heart disease of [place] coronary artery without angina pectoris (2) Unstable angina ICD Codes: I20.0 - Unstable angina Status: Acute (3) ACS (acute coronary syndrome) ICD Codes: I24.9 - Acute ischemic heart disease, unspecified Assessment and Plan Unstable angina not responding to medical tx yesterday. He underwent complex and difficult intervention of mid LAD stenosis. Angina now resolved. Continue antiplatelet tx w Brilinta and baby ASA. Continue aggressive risk factor modification. Continue monitoring. Push PO fluids. Home tomorrow if renal fx stable. Anderson Pro MD Oct 31, 2016 14:05
--- NOTE | 2016-10-31 14:30 | HHI.PR ---
Subjective Remarks Status post heart catheter yesterday. Stents placed at left anterior descending artery. Patient is doing well today without any chest pain. Plan for monitoring of renal function and cardiac status through tomorrow. Patient is likely be cleared for discharge tomorrow. Objective Vital Signs Date Time Temp Pulse Resp B/P (MAP) Pulse Ox O2 Delivery O2 Flow Rate FiO2 10/31/16 14:03 73 10/31/16 13:01 72 10/31/16 12:38 72 10/31/16 11:28 77 10/31/16 11:28 97.7 73 18 93/56 (68) 96 10/31/16 10:01 76 10/31/16 09:11 72 10/31/16 08:49 81 10/31/16 08:49 97.7 88 18 117/64 (81) 95 10/31/16 06:17 71 10/31/16 05:20 70 10/31/16 04:36 73 10/31/16 03:18 72 10/31/16 03:10 97.7 74 18 109/59 (76) 95 10/31/16 02:20 72 10/31/16 01:10 79 10/31/16 00:12 74 10/30/16 23:04 98.4 75 16 122/66 (84) 97 10/30/16 23:00 79 10/30/16 22:00 80 10/30/16 21:00 76 10/30/16 20:00 66 10/30/16 19:20 69 10/30/16 19:20 98.6 69 18 129/76 (93) 96 10/30/16 18:00 89 10/30/16 15:00 98.0 59 20 120/75 (90) 97 10/30/16 15:00 56 I/O 10/30/16 10/30/16 10/30/16 10/31/16 10/31/16 10/31/16 07:00 15:00 23:00 07:00 15:00 23:00 Intake Total 1099 ml 928 ml 1130 ml 1380 ml Output Total 1350 ml 1950 ml 1750 ml Balance -251 ml 928 ml -820 ml -370 ml Intake Oral 240 ml 0 ml 480 ml IV Total 859 ml 928 ml 1130 ml 900 ml Output Urine Total 1350 ml 1950 ml 1750 ml # Bowel Movements 0 Result Diagram: 10/30/16 0440 10/31/16 0608 Objective Remarks GENERAL: NAD, A&Ox3 HEAD: Normocephalic. NECK: Supple, trachea midline. No lymphadenopathy. EYES: No scleral icterus. No injection or drainage. CARDIOVASCULAR: Regular rate and rhythm without murmurs, gallops, or rubs. RESPIRATORY: Breath sounds equal bilaterally. No accessory muscle use. GASTROINTESTINAL: Abdomen soft, non-tender, nondistended. MUSCULOSKELETAL: No cyanosis, or edema. SKIN: Warm and dry. NEURO: No focal neurological deficitis. A/P Problem List: (1) Unstable angina ICD Code: I20.0 - Unstable angina Status: Acute Assessment and Plan Assessment and Plan 71 year-old male with coronary artery disease and a recent RCA stent admitted secondary to unstable angina. New LAD stent(s). Monitor through tomorrow. Possible discharge tomorrow. Follow renal function. Labs ordered. Unstable angina Negative troponins EKG negative Continue heparin drip Continue nitrogen paste Cardiology following Continue aspirin, Plavix, beta piotr, calcium channel piotr Hypotension Resolved Renal insufficiency Resolved DVT prophylaxis Heparin drip Herb Sierra MD Oct 31, 2016 14:30
--- NOTE | 2016-10-31 20:44 | MA ---
cc: NESTOR MCKEON DATE: 10/30/2016 INDICATIONS Unstable angina, class IV angina, coronary artery disease. PROCEDURE PERFORMED 1. Retrograde left heart catheterization with left ventriculography and selective coronary angiography. 2. Angioplasty and stenting of the mid left anterior descending artery. 3. Moderate sedation. ACCESS SITE Left femoral artery EQUIPMENT USED: 5-Lao JL4 and AR modified coronary artery catheters. XB LAD 4.0 guide, [employer] and [employer] wires, 2.0 x 2.5 millimeter balloon for predilatation, 2.75 x 18 millimeter Resolute stent at 9 atmospheres, 2.75 x 12 millimeter Resolute stent at 9 atmospheres proximal to the first stent and 2.5 x 12 millimeter Resolute stent at 16 atmospheres distally to the first stent. All stents were post dilated with 2.5 x 12 millimeter balloon at 16 atmospheres (2.80). CONTRAST: Omnipaque 330 cc. MEDICATIONS: 1. Versed IV. 2. Fentanyl IV. 3. Heparin IV. 4. Nitroglycerin IC. 5. Nitroglycerin sublingual and spray. 6. Brilinta 180 milligrams p.o. COMPLICATIONS: None. BLOOD LOSS: Less than 10 cc METHOD OF HEMOSTASIS: Angio-Seal closure. RESULTS: HEMODYNAMICS: Heart rate 70 beats per minute. Left ventricular end-diastolic pressure 15 mmHg. Left ventricle 135/15 Aorta 155/65/95 LEFT VENTRICULOGRAPHY: Left ventricular ejection fraction 45%. Wall motion: Mid inferior hypokinesis, mild global hypokinesis. CORONARY ANGIOGRAPHY The left main coronary artery is patent. The left anterior descending coronary artery is heavily calcified and tortuous. There is 80% stenosis in the mid portion, D1 is a small vessel with 80% ostial stenosis. The left circumflex artery is patent. OM1 is patent. Right coronary artery is patent. There is patent stent in the distal vessel. The PDA patent. The PLV patent. The stenosis in the mid LAD was 17 millimeters long, pre SUREKHA flow III, post SUREKHA flow III, post-stenosis 0. There was evidence of dissection distally and proximally to the first stent which was covered with 2.75x12 millimeter stent proximally and 2.5x12 millimeter stent distally. Post intervention angiography had excellent patency of the stented segment and no evidence of dissection, coronary thrombosis or embolization DIAGNOSIS: 1. Coronary artery disease with severe stenosis of the mid left anterior descending coronary artery. 1. Mild left ventricular dysfunction consistent with ischemic cardiomyopathy. 2. Successful angioplasty and stenting of the mid left anterior descending coronary artery. DISPOSITION Mr. Camejo will be monitored on telemetry after his procedure. We will continue aggressive modification of his cardiac risk factors. He will follow up with Dr. Fairchild, his primary hotel desk clerk, in his office after discharge. MD RICKI Lizarraga/MEHRDAD /6:20 PM /8:00 PM JOSE
[2016-11-01] VITALS (9 sets, daily range): BP systolic 94–111; BP diastolic 54–73; PULSE 54–76; RESP 16; TEMP 97.7–98.1; O2SAT 97
[2016-11-01] MEDS: SODIUM CHLOR 0.9% 1000 ML INJ 1,000 ML IV SCH (04:45)
[2016-11-01] MEDS: NITROGLYCERIN 2% OINT 1 GM PACKET TOPICAL SCH (04:58)
[2016-11-01 07:03] LABS: POTASSIUM 3.9 MEQ/L (3.5-5.1)
[2016-11-01 07:05] LABS: HEMATOCRIT 41.9 % (39.0-51.0); MEAN CELL VOLUME 87.8 FL (80.0-100.0); MEAN CORPUSCULAR HEMOGLOBIN 29.2 PG (27.0-34.0); MEAN CORPUSCULAR HGB CONC 33.3 % (32.0-36.0); PLATELET COUNT 210 TH/MM3 (150-450); RED BLOOD COUNT 4.78 MIL/MM3 (4.50-5.90); RED CELL DISTRIBUTION WIDTH 13.4 % (11.6-17.2); REVIEW FLAG FINAL; WHITE BLOOD COUNT 13.8 TH/MM3 (4.0-11.0)
[2016-11-01] MEDS ORDERED: BRIL90TA PO (08:09)
[2016-11-01] MEDS: DOCUSATE SODIUM 50 MG/SENNA 8.6 MG TAB PO SCH (08:34)
[2016-11-01] MEDS: FAMOTIDINE 20 MG TAB PO SCH (08:34)
[2016-11-01] MEDS: GABAPENTIN 300 MG CAP PO SCH (08:34)
[2016-11-01] MEDS: ENALAPRIL MALEATE 5 MG TAB PO SCH (08:34)
[2016-11-01] MEDS: CYANOCOBALAMIN 1,000 MCG TAB PO SCH (08:34)
[2016-11-01] MEDS: TICAGRELOR 90 MG TAB PO SCH (08:34)
[2016-11-01] MEDS: METOPROLOL TARTRATE 25 MG TAB PO SCH (08:34)
[2016-11-01] MEDS: SODIUM CHLORIDE 0.9% FLUSH 10 ML FLUSH IV FLUSH SCH (08:35)
[2016-11-01] MEDS: ASPIRIN EC 81 MG TABEC PO SCH (08:35)
[2016-11-01] MEDS: COLESEVELAM HCL 625 MG TAB PO SCH (08:48)
[2016-11-01] MEDS: ALPRAZolam 0.25 MG TAB PO SCH (08:48)
[2016-11-01] MEDS: DILTIAZEM-CD 180 MG CAP ER PO SCH (08:48)
--- NOTE | 2016-11-01 09:00 | HHI.DS ---
Discharge Summary Admission Date Oct 27, 2016 at 19:33 Discharge Date: Nov 01, 2016 Admitting Diagnosis unstable angina, recent stent (1) Unstable angina ICD Code: I20.0 - Unstable angina Diagnosis: Principal Status: Acute (2) Hypotension ICD Code: I95.9 - Hypotension, unspecified (3) Dehydration ICD Code: E86.0 - Dehydration Procedures Cardiac catheter 10/30/2016 PROCEDURE PERFORMED 1. Retrograde heart catheterization with left ventriculography and selective coronary angiography. 2. Angioplasty and stenting of the mid left anterior descending artery. 3. Moderate sedation. Brief History - From Admission This is a 71-year-old male with a PMH of HTN, Hyperlipidemia and CAD who presented to the ER with complaints of chest pain starting earlier today. Recent admit 10/25-10/26/16 for similar complaints, s/p Cardiac Cath by Dr. Fairchild 10/25/16 w/ high grade RCA stenosis s/p Stent, d/c'd on ASA/Plavix w/ plans for follow up in 1-2 wks. States today developed chest pain similar to pain from previous admission. S/p NTG w/ significant improvement in pain. On arrival, BP 136/68, HR 64, O2 sat 97% on RA, Afebrile. CBC unremarkable. GFR 77. Troponin 0.04. CXR with no acute findings. Dr. Narvaez consulted by ER physician, recommended Heparin gtt and will eval in am. Currently chest pain free. CBC/BMP: 11/01/16 0620 11/01/16 0620 Significant Findings Laboratory Tests Test 10/29/16 11:57 10/30/16 04:40 10/31/16 06:08 11/01/16 06:20 Activated Partial Thromboplast Time 46.6 SEC (24.3-30.1) 49.9 SEC (24.3-30.1) Random Glucose 169 MG/DL (74-106) Calcium Level 8.1 MG/DL (8.5-10.1) Chloride Level 109 MEQ/L (98-107) 108 MEQ/L (98-107) Estimat Glomerular Filtration Rate 71 ML/MIN (>89) 61 ML/MIN (>89) White Blood Count 13.8 TH/MM3 (4.0-11.0) Imaging Last Impressions Chest X-Ray 10/27/16 1724 Signed Impressions: Service Date/Time: Sunday, October 27, 2016 17:41 - CONCLUSION: No evidence of acute cardiopulmonary disease. Alfredo Bowden MD PE at Discharge awake and alert, NAD anicteric lungs clear regular rhythm abdomen soft, nontender extremities no edema right groin- previous cath site- no hematoma, superficial ecchymoses-healing, + + femoral pulses neuro exam - non focal Pt update on day of discharge Patient is doing well. Denies any chest pain, shortness of breath, fever or chills. Hospital Course This is a 71-year-old male with a PMH of HTN, Hyperlipidemia and CAD who presented to the ER with complaints of chest pain starting earlier on the day of admission. Recent admit 10/25-10/26/16 for similar complaints, s/p Cardiac Cath by Dr. Fairchild 10/25/16 w/ high grade RCA stenosis s/p Stent, d/c'd on ASA/ Plavix w/ plans for follow up in 1-2 wks. cardiology was consulted and patient was kept on conservative management. However due to unstable angina not responding to medical treatment, patient underwent cardiac catheterization on . He underwent angioplasty and stenting of the need LAD. Patient was switched from Plavix to Ticagrelor and continued on Aspirin 81mg Qday. Patient has had significant intolerance to statins and thus he was continued on WelChol. Patient's creatinine was slightly elevated from 1.04 to 1.18. His morning CBC all shows also shows slight elevation in WBC count 13.8. Advised patient to repeat CBC and BMP in 1 week. This can be followed by primary care provider. Patient was subsequently discharged home with a new prescription for Ticagrelor. Pt Condition on Discharge: Good Discharge Disposition: Discharge Home Discharge Time: > 30 minutes Discharge Instructions DIET: Follow Instructions for: Heart Healthy Diet Activities you can perform: Regular-No Restrictions Follow up Referrals: Cardiology - 2 Weeks with Anderson Pro MD PCP Follow-up - 1 Week New Orders: CBC WITH DIFF - 1 Week COMP MET PROF (CMP) - 1 Week New Medications: Ticagrelor (Brilinta) 90 Mg Tab 90 MG PO BID for Blood Clot Prevention, #60 TAB 11 Refills Continued Medications: Aspirin (Aspirin) 81 Mg Chew 81 MG CHEW DAILY, TAB 0 Refills Coenzyme Q10 (Ubidecarenone) (Coq-10) 400 Mg Cap 200 MG PO DAILY Colesevelam (Welchol) 625 Mg Tab 3750 MG PO DAILY for Hyperlipidemia,type 2 diabetes, TAB 0 Refills Cyanocobalamin (B12) 1,000 Mcg Tab 1 TAB PO DAILY Diltiazem ER 24 HR (Diltiazem ER 24 HR) 180 Mg Mihir 180 MG PO DAILY, TAB 0 Refills Enalapril (Enalapril) 5 Mg Tab 5 MG PO DAILY, TAB 0 Refills Finasteride (Finasteride) 5 Mg Tab 5 MG PO 2XWEEK for Manage Prostate Problems, #30 TAB 0 Refills Do not crush. Furosemide (Furosemide) 20 Mg Tab 20-40 MG PO DIRECTED, TAB 0 Refills Gabapentin (Gabapentin) 300 Mg Cap 300 MG PO BID, #60 CAP 0 Refills Hydrocodone-Acetaminophen (Hydrocodone-Acetaminophen) 7.5-325 mg Tab 1 TAB PO Q4H PRN for PAIN, TAB 0 Refills Metaxalone (Metaxalone) 800 Mg Tab 800 MG PO DAILY PRN for PAIN SCALE 1 TO 10, TAB 0 Refills Metoprolol Tartrate (Metoprolol Tartrate) 25 Mg Tab 25 MG PO BID for CAD, #60 TAB 0 Refills Multiple Vitamin (Multiple Vitamin) 1 Tab 1 TAB PO DAILY for Nutritional Supplement, TAB 0 Refills Temazepam (Temazepam) 15 Mg Cap 15 MG PO HS PRN for INSOMNIA, CAP 0 Refills Discontinued Medications: Clopidogrel (Clopidogrel) 75 Mg Tab 75 MG PO DAILY for Blood Clot Prevention, #90 TAB 0 Refills Finasteride (Finasteride) 5 Mg Tab 5 MG PO DIRECTED for Manage Prostate Problems, TAB 0 Refills Do not crush. Gabapentin (Gabapentin) 300 Mg Cap 300 MG PO BID, CAP 0 Refills Hydrocodone-Acetaminophen (Hydrocodone-Acetaminophen) 7.5-325 mg Tab 1 TAB PO Q4H PRN for PAIN, TAB 0 Refills Temazepam (Restoril) 15 Mg Cap 15 MG PO HS for Insomnia, #30 CAP 0 Refills Naomi Berg DO Nov 01, 2016 09:00
== END 2016-11-01 10:19 | disposition home or self-care (01) | DRG 249 ==
LOC: NEPE 17:15 → NEDH 19:33 → HCIN 21:04
PROVIDERS: ADMIT Hospitalist; ATTEND Hospitalist
PROC: 4A023N6 Measurement of Cardiac Sampling and Pressure, Right Heart, Percutaneous Approach (ICD-10-PCS; 2016-10-30)
PROC: B2151ZZ Fluoroscopy of Left Heart using Low Osmolar Contrast (ICD-10-PCS; 2016-10-30)
PROC: B2111ZZ Fluoroscopy of Multiple Coronary Arteries using Low Osmolar Contrast (ICD-10-PCS; 2016-10-30)
PROC: 02703FZ Dilation of Coronary Artery, One Artery with Three Intraluminal Devices, Percutaneous Approach (ICD-10-PCS; principal; 2016-10-30 14:15)
DX: I25.110 Atherosclerotic heart disease of native coronary artery with unstable angina pectoris (principal); I95.9 Hypotension, unspecified; I24.9 Acute ischemic heart disease, unspecified; I10 Essential (primary) hypertension; G47.30 Sleep apnea, unspecified; Z87.891 Personal history of nicotine dependence; Z79.82 Long term (current) use of aspirin; Z95.5 Presence of coronary angioplasty implant and graft; I25.2 Old myocardial infarction; E86.0 Dehydration; E78.5 Hyperlipidemia, unspecified; N28.9 Disorder of kidney and ureter, unspecified; Z79.02 Long term (current) use of antithrombotics/antiplatelets; Z82.49 Family history of ischemic heart disease and other diseases of the circulatory system; M19.90 Unspecified osteoarthritis, unspecified site
CPT/HCPCS: 71020; 80048; 80053; 80061; 82550; 84484; 85002; 85025; 85027; 85610; 85730; 92928; 93005; 93458; C1725; C1760; C1769; C1874; C1887; C1893; G0269; J1200; J1644; J2250; J2270; J2930; J3010; J7030; Q9967